=== PATIENT | male | born 1950 | race Caucasian/White ===

== ENCOUNTER → 2017-12-12 13:14 | Outpatient (CLI) | payer MEDICARE, SELFPAY ==
[2017-12-12 16:21] LABS: Absolute Lymphocyte Count 1.41 X10^3/ul (0.83-4.51); Absolute Neutrophil Count 5.1 X10^3/uL (2.0-7.7); Basophil# 0.02 X10^3/uL; Basophil% 0.3 % (0-1); Eosinophil# 0.16 X10^3/uL; Eosinophils% 2.2 % (0-5); Hematocrit 41.3 % (40-54); Lymphocyte # 1.41 X10^3/ul (4.0); Lymphocyte % 19.7 % (19-41); Mean Corp Hgb Conc 31.5 g/gl (32-36); Mean Corpuscular Volume 95.4 fL (80-94); Mean Platelet Vol. 11.8 fl (6.2-12.0); Monocyte# 0.49 X10^3/uL; Monocyte% 6.9 % (0-10); Neutrophil # 5.05 X10^3/uL (2.7-7.7); Neutrophil % 70.6 % (47-70); Platelet Count 224 K/mm3 (150-450); RBC Distribution Width CV 14.3 % (11.6-14.6); RBC Distribution Width SD 48.9 fl (35.1-43.9); Red Blood Count 4.33 M/mm3 (4.6-6.2); White Blood Count 7.2 K/mm3 (4.4-11.0)
[2017-12-12 16:23] LABS: POSITIVE COUNT NO; POSITIVE DIFFERENTIAL NO; POSITIVE MORPHOLOGY NO
[2017-12-12 16:41] LABS: Vitamin D,25 Hydroxy 24.6 ng/mL (29.95-100.01)
[2017-12-12 16:49] LABS: ALB/GLOB Ratio 1.2 RATIO (0.9-2.4); AST(SGOT) 18 U/L (15-37); Alanine Aminotransfer ALT/SGPT 30 U/L (16-61); Albumin, Serum 3.6 g/dL (3.2-5.0); Alkaline Phosphatase 84 U/L (45-117); Anion Gap 7 (5-15); BUN 16 mg/dL (7-18); BUN/Creat Ratio 16.1 RATIO (10-20); Calcium,Total 8.1 mg/dL (8.5-10.1); Chloride 107 mmol/L (98-107); Creatinine, Serum 0.99 mg/dL (0.70-1.30); EST Glomerular Filtration Rate 79 mL/min (>60); Est Glom Filt Rate - Afr Amer 96 mL/min (>60); Globulin 3.1 g/dL (2.2-4.2); Glucose 87 mg/dL (74-106); Potassium 3.8 mmol/L (3.5-5.1); Protein, Total 6.7 g/dL (6.4-8.2); Sodium Level 143 mmol/L (136-145); Thyroid Stim Hormone (TSH) 0.34 uIU/mL (0.358-3.74)
[2017-12-13 11:37] LABS: T3 Uptake 29 % (33-40); T4 Free Direct 0.94 ng/dL (0.76-1.46)
== END ==
PROVIDERS: Family Provider Family Medicine Geriatric Medicine; PCP Family Medicine Geriatric Medicine; Visit Provider Family Medicine Geriatric Medicine
DX: E87.6 Hypokalemia (principal); E03.9 Hypothyroidism, unspecified; E55.9 Vitamin D deficiency, unspecified; R53.83 Other fatigue
CPT/HCPCS: 36415; 80053; 82306; 84439; 84443; 84479; 85025

== ENCOUNTER → 2017-12-19 09:41 | Outpatient (CLI) | payer MEDICARE, SELFPAY ==
--- NOTE | 2017-12-19 09:46 | AAVD_ITS ---
Reason For Study: AORTOILIAC OCCLUSIVE DISEASE Aorta Measurements Aorta Doppler Measurements Proximal aorta measures1.5 X 1.7cm. in cross- Peak systolic flow velocities within the proximal sectional axis. aorta measure 74 cm/sec. Proximal aorta measures1.7cm. in longitudinal Peak systolic flow velocities within the mid axis. aorta measure 94 cm/sec. Mid aorta measures1.3 X 1.4cm. in cross-sectionalPeak systolic flow velocities within the distal axis. aorta measure 82 cm/sec. Mid aorta measures1.4cm. in longitudinal axis. Distal aorta measures1.4 X 1.3cm. in cross- sectional axis. Distal aorta measures1.4cm. in longitudinal axis. Left Iliac Artery Left iliac artery measures 1.0 cm. in the longitudinal axis. Left iliac artery measures 1.1 X 1.2 cm. in the cross-sectional axis. Peak systolic velocity in the left iliac artery measures 223 cm/sec. Right Iliac Artery Right iliac artery measures 1.1 cm. in the longitudinal axis. Peak systolic velocity in the right iliac artery measures 106 cm/sec. Right iliac artery measures 1.0 X 1.1 cm. in the cross-sectional axis. Procedure Aorta IVC Iliac vasculature or bypass grafts [id number]. Exam performed in department. Interpretation Summary 1. No aortoiliac aneurysm or occlussive disease. Ordering Physician: Sterling Gardner Referring Physician: PEPE PARKER CHI Performed By: Yakelin Recinos, BAILEY, RVT
== END ==
PROVIDERS: Family Provider Family Medicine Geriatric Medicine; PCP Family Medicine Geriatric Medicine; Visit Provider Surgery Vascular Surgery
DX: I74.09 Other arterial embolism and thrombosis of abdominal aorta (principal); I70.213 Atherosclerosis of native arteries of extremities with intermittent claudication, bilateral legs; M79.605 Pain in left leg; E78.00 Pure hypercholesterolemia, unspecified; Z87.19 Personal history of other diseases of the digestive system
CPT/HCPCS: 93978

== ENCOUNTER → 2018-01-16 12:55 | Outpatient (CLI) | payer MEDICARE, SELFPAY ==
--- NOTE | 2018-01-23 11:37 | LEAS ---
Arterial Study - Arterial Study Arterial Study: Date of scan 01/16/[address] Gardner next History: Hypertension hyperlipidemia history of smoking with mild claudication symptoms Interpretation: Right lower extremity normal pulsatile flow from the thigh down to the calf ankle out through the digits duplex at the ankle shows triphasic flow both vessels with an IVAN of 1.3 to the posterior tibial 1.2 for the dorsalis pedis next Left lower extremity with again normal pulsatile flow that appears from the thigh down to the calf ankle out through the digits duplex shows again triphasic flow at the ankle of both vessels with an IVAN 1.15 the posterior tibial 1.19 at the dorsalis pedis. Impression: 1. Bilateral lower extremities with no evidence significant arterial occlusive disease at rest with triphasic flow and an IVAN 1.32 and 1.19
== END ==
PROVIDERS: Family Provider Family Medicine Geriatric Medicine; PCP Family Medicine Geriatric Medicine; Visit Provider Surgery Vascular Surgery
DX: I74.09 Other arterial embolism and thrombosis of abdominal aorta (principal); I70.213 Atherosclerosis of native arteries of extremities with intermittent claudication, bilateral legs; M79.605 Pain in left leg; E78.00 Pure hypercholesterolemia, unspecified; Z87.19 Personal history of other diseases of the digestive system
CPT/HCPCS: 93923

== ENCOUNTER → 2018-03-11 17:48 | Outpatient (CLI) | payer MEDICARE, SELFPAY ==
--- NOTE | 2018-03-11 18:06 | RAD_ITS ---
STUDY: X-RAY CHEST REASON FOR EXAM: Male, 67 years old. Cough. Bronchitis. TECHNIQUE: PA and lateral views of the chest. COMPARISON: October 31, 2013. FINDINGS: The lungs are clear and expanded. There is no demonstrated pleural abnormality. Normal size heart. Normal mediastinum and jacinto. Normal visualized pulmonary arteries. There is mild atherosclerotic calcification of the aortic arch with tortuosity. There are diffuse degenerative changes of the visualized thoracic spine. Normal visualized ribs, clavicles, and shoulders. There is no demonstrated abnormality of the visualized soft tissue structures of the upper abdomen. RAD/Chest PA and Lateral IMPRESSION: No acute cardiopulmonary disease or interval change. Electronically Signed: Rigo Abbasi DO at 9:57 EDT Tel [phone], Service support ,
[2018-03-11 18:07] LABS: Absolute Lymphocyte Count 3.11 X10^3/ul (0.83-4.51); Absolute Neutrophil Count 9.6 X10^3/uL (2.0-7.7); Basophil# 0.02 X10^3/uL; Basophil% 0.1 % (0-1); Eosinophil# 0.06 X10^3/uL; Eosinophils% 0.4 % (0-5); Hematocrit 43.7 % (40-54); Hemoglobin 14.1 g/dl (13.0-16.5); Lymphocyte # 3.11 X10^3/ul (4.0); Lymphocyte % 22.2 % (19-41); Mean Corp Hgb Conc 32.3 g/gl (32-36); Mean Corpuscular Hgb 30.9 pg (27.0-32.0); Mean Corpuscular Volume 95.6 fL (80-94); Mean Platelet Vol. 10.7 fl (6.2-12.0); Monocyte% 7.9 % (0-10); Neutrophil # 9.57 X10^3/uL (2.7-7.7); Neutrophil % 68.3 % (47-70); POSITIVE COUNT NO; POSITIVE DIFFERENTIAL NO; POSITIVE MORPHOLOGY NO; Platelet Count 286 K/mm3 (150-450); RBC Distribution Width CV 13.5 % (11.6-14.6); RBC Distribution Width SD 46.8 fl (35.1-43.9); Red Blood Count 4.57 M/mm3 (4.6-6.2)
[2018-03-11 18:43] LABS: Anion Gap 6 (5-15); BUN 40 mg/dL (7-18); BUN/Creat Ratio 36.7 RATIO (10-20); Calcium,Total 8.7 mg/dL (8.5-10.1); Chloride 105 mmol/L (98-107); Creatinine, Serum 1.09 mg/dL (0.70-1.30); EST Glomerular Filtration Rate 71 mL/min (>60); Est Glom Filt Rate - Afr Amer 86 mL/min (>60); Glucose 103 mg/dL (74-106); Potassium 3.7 mmol/L (3.5-5.1); Sodium Level 139 mmol/L (136-145)
== END ==
PROVIDERS: Family Provider Family Medicine Geriatric Medicine; PCP Family Medicine Geriatric Medicine; Visit Provider Family Medicine Geriatric Medicine
DX: J40 Bronchitis, not specified as acute or chronic (principal); R53.83 Other fatigue; R68.83 Chills (without fever)
CPT/HCPCS: 36415; 71046; 80048; 85025; 87633

== ENCOUNTER 2018-05-14 07:00 | Outpatient (RCR) | payer MEDICARE, SELFPAY ==
--- NOTE | 2018-04-05 10:24 | HP.PTEVAL_ITS ---
Patient's Visit Information BREANNA HERRING is a 67 year old M referred to Physical Therapy by Oscar Soni with a diagnosis of BACK PAIN. Date of Evaluation: 04/05/18 Physical Therapist: Brad Rios, PT, - Visit Plan Frequency: 2x /Week Duration: 4 Weeks Plan: 1XWEEK AQUATIC PT FOR CERVICAL/UMBAR ROM ,SSTRENGTHENING,POSTURE. 1XWEEK FOR MANUAL THERAPY-STM,MODALITIES,POSTURAL EX'S - Subjective Subjective: This 67 y/o male presents to physical therapy with back pain . Patient has h/o cervcal fusion Jun and lumbar fusion and 8 surgery's and last surgery was a fusion lumbar 2014. Patient has been [facility] pain management with epidural injections and last procedure was nerve burning. Patient see Neurosurgeon DR Gardner said it will take. Patient had MRI . Patient has lumbar pain symmtrical lumbar with radicular symptoms left leg. Decsribed ache/sharp. Symptoms worse with walking /standing ,sitting,activity ,working . Location symptoms cervical and right am with parathesia . Symptoms worse with all activity sitting,working ,lifting ,turning cervical spine. C/O SMITH ,denies dizziness,nuasea/tinnutus. Coughing /sneezing -.Bowel/bladder good. Symtoms affect sleeping. Symptoms affects ADL'S/function and QOL. 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 SOCIAL: - Pain Bilateral Neck Pain Intensity (Out of 10): 6 Pain Intensity Range: 9 Bilateral Back Pain Intensity (Out of 10): 6 Pain Intensity Range: 9 Left Lower Extremity Pain Intensity (Out of 10): 7 Pain Intensity Range: 8 Comment: parathesia - Objective POSTURE:mild foward posture. NEURO: c/o parathesia right arm ,and left leg , light touch ,reflexes C5-6-7 1/3,L3-4,L4-5,L5-S1 1/3. PALAPTION: tender UT/ levator/scapular/paraspinals. AROM: BUE WFL. MMT: 4/5 except shoulder 4-/5. CERVICAL: flexion mod loss,lateral flexion mod/severe loss,extension mod/severe, rotation mod loss. LUMBAR ROM: flexion mod loss,side glides mod loss,extension mod/severe loss. MMT: quads/hams 4/5,hip flexion 4-/5,ankle 4/5. FLEXABILITY: hams min loss. SYMMTRIES: align - Special Tests C/S Radiculapathy - Left Upper limb tension test: Negative C/S Radiculapathy - Right Upper limb tension test: Negative L/S Slump test left side: Negative L/S Slump test right side: Negative L/S Left Straight Leg Raise: Negative L/S Right Straight Leg Raise: Negative - Goals Goal 1:: Innependant with Aquatic PT program Goal Time Frame: 4-6 Weeks Goal 2:: Patient improve posture for ADL'S to manage symptoms Goal Time Frame: 4-6 Weeks Goal 3:: Patient improve cervical lumbar ROM to improve function of recovery Goal Time Frame: 4-6 Weeks Goal 4:: Patient improve owestry score by 5 points to improve QOL. Goal Time Frame: 4-6 Weeks - Rehabilitation Potential Physical Therapy Diagnosis: This 67 y/o male has multiple complexity issues with h/o cervical fusion 2017 and multiple lumbar surgery's x8 to include lumbar fusion 2014 . Patient conts to have cervical pain with riadicular. Patient is with pain management and PT in past. Patient has impairments with decrease ROM ,pain impairs QOL Rehabilitation Potential: Good - Anticipated Interventions Patient/Client Instruction: Educate patient on: Condition, Plan of Care For the Purpose of:: To decrease pain, To increase ROM, To improve muscle performance and motor function, To increase tolerance to activity/condition/ position, To improve ability of physical actions for home/community/work/leisure , To improve health of tissue, To decrease soft tissue restriction, To increase flexibility/ROM, To improve ability to perform tasks related to life management Therapeutic Exercise to Include: Strength training, Body mechanics, Postural training, In an aquatic setting, Active ROM, Dynamic Lumbar Stabilization Comment: CERVICAL/LUMBAER For the Purpose of:: To decrease pain, To increase ROM, To improve nutrient delivery to tissue, To increase oxygenation perfusion, To improve muscle performance and motor function, To increase tolerance to activity/condition/ position, To improve ability of physical actions for home/community/work/leisure , To improve health of tissue, To decrease soft tissue restriction, To increase flexibility/ROM, To improve ability to perform tasks related to life management Manual Therapy Techniques to Include: Soft tissue mobilization For the Purpose of:: To decrease pain, To improve nutrient delivery to tissue, To increase oxygenation perfusion, To improve health of tissue, To decrease soft tissue restriction TENS: Yes IF ES: Yes Cryotherapy (ice pack, ice massage): Yes Thermo therapy (hot pack): Yes Ultrasound (thermal/non thermal): Yes For the Purpose of:: To decrease pain, To increase ROM, To improve nutrient delivery to tissue, To increase oxygenation perfusion, To improve health of tissue, To increase flexibility/ROM Thank you for the opportunity to evaluate your patient. For Medicare and Medicare HMO plans, please review the plan of care and approve it. It will need to be FAXED BACK to us at [phone] for Medicare purposes. Please let me know if there are questions or concerns regarding this plan of care. Physician Signature: Date:
[2018-05-01 12:35] LABS: Absolute Lymphocyte Count 1.59 X10^3/ul (0.83-4.51); Absolute Neutrophil Count 5.5 X10^3/uL (2.0-7.7); Basophil# 0.02 X10^3/uL; Basophil% 0.3 % (0-1); Eosinophil# 0.09 X10^3/uL; Eosinophils% 1.2 % (0-5); Hematocrit 41.6 % (40-54); Hemoglobin 13.1 g/dl (13.0-16.5); Lymphocyte # 1.59 X10^3/ul (4.0); Lymphocyte % 20.3 % (19-41); Mean Corp Hgb Conc 31.5 g/gl (32-36); Mean Corpuscular Hgb 31.2 pg (27.0-32.0); Mean Platelet Vol. 11.3 fl (6.2-12.0); Monocyte# 0.61 X10^3/uL; Monocyte% 7.8 % (0-10); Neutrophil # 5.46 X10^3/uL (2.7-7.7); Neutrophil % 69.8 % (47-70); Platelet Count 207 K/mm3 (150-450); RBC Distribution Width CV 13.5 % (11.6-14.6); RBC Distribution Width SD 48.7 fl (35.1-43.9); White Blood Count 7.8 K/mm3 (4.4-11.0)
[2018-05-01 12:41] LABS: POSITIVE COUNT NO; POSITIVE DIFFERENTIAL NO; POSITIVE MORPHOLOGY NO
[2018-05-01 12:50] LABS: Vitamin D,25 Hydroxy 27.5 ng/mL (29.95-100.01)
[2018-05-01 12:56] LABS: ALB/GLOB Ratio 1.1 RATIO (0.9-2.4); AST(SGOT) 20 U/L (15-37); Alanine Aminotransfer ALT/SGPT 33 U/L (16-61); Albumin, Serum 3.6 g/dL (3.2-5.0); Alkaline Phosphatase 69 U/L (45-117); Anion Gap 9 (5-15); BUN 17 mg/dL (7-18); BUN/Creat Ratio 21.6 RATIO (10-20); Calcium,Total 8.5 mg/dL (8.5-10.1); Chloride 110 mmol/L (98-107); Creatinine, Serum 0.79 mg/dL (0.70-1.30); EST Glomerular Filtration Rate 104 mL/min (>60); Est Glom Filt Rate - Afr Amer 126 mL/min (>60); Globulin 3.2 g/dL (2.2-4.2); Glucose 87 mg/dL (74-106); PSA,Total - Annual Screen 0.52 ng/mL (0.00-4.00); Potassium 4.1 mmol/L (3.5-5.1); Protein, Total 6.8 g/dL (6.4-8.2); Sodium Level 145 mmol/L (136-145); Thyroid Stim Hormone (TSH) 1.57 uIU/mL (0.358-3.74)
[2018-05-02 14:40] LABS: Hep C Antibodies 0.1 s/co ratio (0.0-0.9)
--- NOTE | 2018-08-19 11:52 | HP.PTDCNRP_ITS ---
HP - Discharge Summary (1) - Patient Information BREANNA HERRING was seen in my office for initial evaluation on 04/05/18. The following Plan of Care was established for this patient: Initial Frequency: 2x /Week Initial Duration: 4 Weeks - Anticipated Interventions Patient/Client Instruction: Educate patient on: Condition, Plan of Care For the Purpose of:: To decrease pain, To increase ROM, To improve muscle perf ormance and motor function, To increase tolerance to activity/condition/position, To improve ability of physical actions for home/community/work/leisure, To improve health of tissue, To decrease soft tissue restriction, To increase flexibility/ROM, To improve ability to perform tasks related to life management Therapeutic Exercise to Include: Strength training, Body mechanics, Postural training, In an aquatic setting, Active ROM, Dynamic Lumbar Stabilization For the Purpose of:: To decrease pain, To increase ROM, To improve nutrient delivery to tissue, To increase oxygenation perfusion, To improve muscle performance and motor function, To increase tolerance to activity/condition/position, To improve ability of physical actions for home/co mmunity/work/leisure, To improve health of tissue, To decrease soft tissue restriction, To increase flexibility/ROM, To improve ability to perform tasks related to life management Manual Therapy Techniques to Include: Soft tissue mobilization For the Purpose of:: To decrease pain, To improve nutrient delivery to tissue, To increase oxygenation perfusion, To improve health of tissue, To decrease soft tissue restriction TENS: Yes IF ES: Yes Cryotherapy (ice pack, ice massage): Yes Thermo therapy (hot pack): Yes Ultrasound (thermal/non thermal): Yes For the Purpose of:: To decrease pain, To increase ROM, To improve nutrient delivery to tissue, To increase oxygenation perfusion, To improve health of tissue, To increase flexibility/ROM This patient was last seen in our office . Pertinent comments regarding their Physical therapy will appear below: At this point I will be discontinuing this patient from physical therapy. I would be happy to see this patient again in the future if found appropriate by the physician. Thank you! Brad Rios, PT,
--- NOTE | 2018-08-19 11:53 | HP.PTDCSUM_ITS ---
HP - PT D/C Summary It has been my pleasure to treat BREANNA HERRING under orders from Oscar Soni, for the diagnosis of BACK PAIN for a total of 9 visit(s). Discharge Date: Please see the following information for a summary of their discharge status. - Subjective Subjective: Seen DR crenshaw plan to do MRI. Pain continues to be bad at end of day. - Pain Bilateral Neck Pain Intensity (Out of 10): 5 Bilateral Back Pain Intensity (Out of 10): 5 Left Lower Extremity Pain Intensity (Out of 10): 5 - Objective Objective/Function: POSTURE: rounded shoulders head foward. PALPATION: tender UT/LEVATOR. NEURO: ocassionally c/o parathesia left UE. MMT: BUE 4/5 EXCEPT shoulders 4-/5. CERVICAL ROM: flexion min loss,extension mod loss ,lateral fl exion mod loss - Goals Goal 1:: Innependant with Aquatic PT program Goal 2:: Patient improve posture for ADL'S to manage symptoms Goal 3:: Patient improve cervical lumbar ROM to improve function of recovery Goal 4:: Patient improve owestry score by 5 points to improve QOL. - Plan Plan: MRI - D/C Information If there are questions or concerns regarding this patient's physical therapy, please feel free to call me at [phone]. Thank you for the referral of this patient. Sincerely, Brad Rios, PT,
== END 2018-05-14 19:00 | disposition home or self-care (01) ==
LOC: PT 07:00
PROVIDERS: Family Provider Family Medicine Geriatric Medicine; PCP Family Medicine Geriatric Medicine; Visit Provider Anesthesiology Pain Medicine
DX: M54.5 Low back pain (principal); E55.9 Vitamin D deficiency, unspecified; R53.83 Other fatigue; Z12.5 Encounter for screening for malignant neoplasm of prostate; Z13.89 Encounter for screening for other disorder
CPT/HCPCS: 36415; 80053; 82306; 84153; 84443; 85025; 86803; 97035; 97113; 97140; 97162; G0103

== ENCOUNTER → 2018-10-30 14:07 | Outpatient (CLI) | payer MEDICARE, SELFPAY ==
[2018-10-30 16:26] LABS: Absolute Lymphocyte Count 1.85 X10^3/ul (0.83-4.51); Absolute Neutrophil Count 4.1 X10^3/uL (2.0-7.7); Basophil# 0.03 X10^3/uL; Basophil% 0.4 % (0-1); Eosinophil# 0.27 X10^3/uL; Eosinophils% 3.9 % (0-5); Hematocrit 43.1 % (40-54); Hemoglobin 13.5 g/dl (13.0-16.5); Lymphocyte # 1.85 X10^3/ul (4.0); Lymphocyte % 26.7 % (19-41); Mean Corp Hgb Conc 31.3 g/gl (32-36); Mean Corpuscular Hgb 31.1 pg (27.0-32.0); Mean Corpuscular Volume 99.3 fL (80-94); Mean Platelet Vol. 12.2 fl (6.2-12.0); Monocyte# 0.63 X10^3/uL; Monocyte% 9.1 % (0-10); Neutrophil # 4.12 X10^3/uL (2.7-7.7); Neutrophil % 59.5 % (47-70); Platelet Count 250 K/mm3 (150-450); RBC Distribution Width CV 13.6 % (11.6-14.6); RBC Distribution Width SD 49.2 fl (35.1-43.9); Red Blood Count 4.34 M/mm3 (4.6-6.2); White Blood Count 6.9 K/mm3 (4.4-11.0)
[2018-10-30 16:36] LABS: POSITIVE COUNT NO; POSITIVE DIFFERENTIAL NO; POSITIVE MORPHOLOGY NO
[2018-10-30 16:49] LABS: ALB/GLOB Ratio 1.1 RATIO (0.9-2.4); AST(SGOT) 19 U/L (15-37); Alanine Aminotransfer ALT/SGPT 30 U/L (16-61); Albumin, Serum 3.6 g/dL (3.2-5.0); Alkaline Phosphatase 101 U/L (45-117); Anion Gap 7 (5-15); BUN 18 mg/dL (7-18); BUN/Creat Ratio 23.1 RATIO (10-20); Calcium,Total 8.5 mg/dL (8.5-10.1); Chloride 108 mmol/L (98-107); Creatinine, Serum 0.78 mg/dL (0.70-1.30); EST Glomerular Filtration Rate 105 mL/min (>60); Est Glom Filt Rate - Afr Amer 127 mL/min (>60); Globulin 3.2 g/dL (2.2-4.2); Glucose 97 mg/dL (74-106); Protein, Total 6.8 g/dL (6.4-8.2); Sodium Level 141 mmol/L (136-145)
== END ==
PROVIDERS: Family Provider Family Medicine Geriatric Medicine; PCP Family Medicine Geriatric Medicine; Visit Provider Family Medicine Geriatric Medicine
DX: I10 Essential (primary) hypertension (principal); E55.9 Vitamin D deficiency, unspecified
CPT/HCPCS: 36415; 80053; 82306; 84443; 85025

== ENCOUNTER → 2019-01-01 06:39 | Outpatient (CLI) | payer BC, MEDICARE, SELFPAY ==
[2018-11-11 10:23] VITALS: BMI 24.3
--- NOTE | 2019-01-01 11:28 | NEURO ---
NCS and/or EMG Patient Report Ordering Doctor: Sj Pinto Chi DATE OF SERVICE: 01/01/19 This is a right upper extremity EMG and a bilateral upper extremity nerve conduction study performed on this 68-year-old male with a history of numbness and tingling in the right hand in his first 3 digits and on the left hand and his last 2 digits. Symptoms been present for approximately 3 months. He has a prior neck fusion there is no history of diabetes. Bilateral upper extremity sensory and motor nerve conduction studies performed. The median motor and sensory distal latencies are prolonged more so on the right side with reduction in amplitude but stable conduction velocities. The ulnar motor and sensory and radial sensory responses are intact. The median F wave latencies are prolonged bilaterally worse on the right side. Right upper extremity needle electromyography is performed. Muscles evaluated included the first dorsal interosseous, abductor pollicis brevis, brachioradialis, biceps, triceps and deltoid muscles. All muscles with the exception of the abductor pollicis brevis muscle demonstrated normal insertional activity with pathologic's planning cutaneous activity being absent. Motor unit potential recruitment pattern and amplitude was normal however in the abductor pollicis brevis there was 1-2+ fibrillation potentials large motor units consistent with carpal tunnel syndrome. All other C8 muscles are normal. 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
== END ==
PROVIDERS: Family Provider Family Medicine Geriatric Medicine; PCP Family Medicine Geriatric Medicine; Referring Provider Family Medicine Geriatric Medicine; Visit Provider Family Medicine Geriatric Medicine
DX: R20.2 Paresthesia of skin (principal)
CPT/HCPCS: 95886; 95911

== ENCOUNTER 2019-02-08 10:38 | Emergency (ER) | payer BC, MEDICARE, SELFPAY ==
[2018-11-11 10:23] VITALS: BMI 24.3
[2019-02-08 10:39] VITALS: BP 157/85; PULSE 65; RESP 17; TEMP 36.6; O2SAT 96; BMI 24.5
--- NOTE | 2019-02-08 11:01 | CT_ITS ---
STUDY: CT ABDOMEN AND PELVIS WITHOUT CONTRAST REASON FOR EXAM: Male, 68 years old. Right flank pain for 5 days RADIATION DOSAGE (If Supplied By Facility): CTDIvol = ( 7.54 ) mGy, DLP = ( 361.45 ) mGycm TECHNIQUE: Transaxial images were obtained from the dome of the diaphragm to the symphysis pubis without oral contrast, and without intravenous contrast. Sagittal and coronal images were reconstructed. Individualized dose optimization techniques were used for this CT. COMPARISON: May 14, 2017 FINDINGS: The visualized lung bases are unremarkable. Coronary artery stents are noted. Normal liver. Normal gallbladder and extrahepatic biliary system. Normal spleen. Normal pancreas. Fat containing mass of the right adrenal gland measuring 3.4 cm is compatible with a myelolipoma, stable since prior study. The left adrenal gland is normal. Mild right hydronephrosis with a 3 mm calculus in the proximal right ureter on image 86. Normal left kidney. Normal visualized stomach. Normal small intestine. There are multiple colonic diverticula consistent with diverticulosis. There is non-visualization of the appendix. Normal abdominal aorta. Normal inferior vena cava. Normal retroperitoneum. Normal urinary bladder. There is a small umbilical hernia containing fat. Similar operative changes of the lumbar spine. Calcifications of the bilateral buttock subcutaneous fat compatible with injection sites/granulomas. CT/Abdomen/Pelvis without Cont IMPRESSION: 1. 3 mm proximal right ureter calculus with mild hydronephrosis. 2. Additional stable chronic changes, as above. Electronically Signed: Paul Crump MD at 12:10 EDT , Service support ,
--- NOTE | 2019-02-08 11:03 | ED.DCSUM_ITS ---
- ER Visit Summary Date of Service: 02/08/19 Chief Complaint: Flank pain History of Present Illness: The patient is a 68 M with right sided flank pain. Symptoms started 5 days ago. Patient has had kidney stones in the past and he is trying to pass it on his own. He has noted hematuria and just had some clots in his urine. Physical Examination: Afebrile and vital signs unremarkable. Patient appears uncomfortable but not toxic or in distress. Right CVA tender to palpation. Abdomen soft. Skin appears normal. Test Results: We will check labs, urine, CT. Emergency Department Course and Treatment: Patient received fluids, morphine, Zofran while awaiting results. Patient has a 3 mm right proximal ureter with mild hydronephrosis. CBC unremarkable. Chloride 109, glucose 107, BUN 19. Urinalysis shows 25 leukocyte esterase, greater than 100 red blood cells. Patient does not meet criteria for admission. Furthermore he is not having intractable symptoms and would like to try outpatient therapy. He is on o xycodone and will continue this at home. Will prescribe Flomax. Strain all urine. I advised him that his condition could worsen. If he is unable to tolerate p.o. or has any other complications, he should return over the weekend. Otherwise, follow-up with Dr. Fang. Treatment Plan: As above Disposition: Discharge Impression: 1. Right ureteral colic This note was generated with [employer] dictation software. It may contain incorrect words, spelling, and punctuation that were not noted in review of the chart prior to signing ED Disposition - Plan for ED Patient: Referrals: Sj Pinto Chi, MD [Primary Care Provider] -
[2019-02-08 11:19] LABS: Bacteria 0 SEEN /hpf (None Seen); Mucous, Urine 0 SEEN /hpf (<or=2+); Squamous Epithelial Cells - UA 0 SEEN /hpf (0-5); White Blood Cells 0 SEEN /hpf (0-5)
[2019-02-08] MEDS: 0.9% Normal Saline 1,000 ML 1000 ML IV (11:20)
[2019-02-08] MEDS: Morphine 4 MG/ML Syringe IV (11:20)
[2019-02-08] MEDS: Ondansetron 4 MG/2 ML Vial IV (11:20)
[2019-02-08 11:22] LABS: Absolute Lymphocyte Count 1.66 X10^3/ul (0.83-4.51); Absolute Neutrophil Count 4.7 X10^3/uL (2.0-7.7); Basophil# 0.03 X10^3/uL; Basophil% 0.4 % (0-1); Eosinophil# 0.24 X10^3/uL; Eosinophils% 3.3 % (0-5); Hematocrit 42.6 % (40-54); Hemoglobin 13.8 g/dl (13.0-16.5); Lymphocyte # 1.66 X10^3/ul (4.0); Lymphocyte % 22.6 % (19-41); Mean Corp Hgb Conc 32.4 g/gl (32-36); Mean Corpuscular Hgb 30.9 pg (27.0-32.0); Mean Corpuscular Volume 95.3 fL (80-94); Mean Platelet Vol. 10.6 fl (6.2-12.0); Monocyte# 0.69 X10^3/uL; Monocyte% 9.4 % (0-10); Neutrophil # 4.71 X10^3/uL (2.7-7.7); Platelet Count 201 K/mm3 (150-450); RBC Distribution Width CV 13.2 % (11.6-14.6); RBC Distribution Width SD 45.8 fl (35.1-43.9); Red Blood Count 4.47 M/mm3 (4.6-6.2); White Blood Count 7.4 K/mm3 (4.4-11.0)
[2019-02-08 11:24] LABS: POSITIVE COUNT NO; POSITIVE DIFFERENTIAL NO; POSITIVE MORPHOLOGY NO
[2019-02-08 11:26] LABS: Color, Urine Amber (Yellow); Glucose, Dipstick Normal (Normal); Ketone-Dipstick Negative (Negative); Leukocyte Esterase-Dipstick 25 /ul (Negative); Nitrite-Dipstick Negative (Negative); Occult Blood-Urine 250 /ul (Negative); Protein-Dipstick 30 mg/dl (Negative); Specific Gravity, Urine 1.005 (1.002-1.030); Urine Bilirubin Dipstick Negative (Negative); Urine Clarity Cloudy (Clear); Urine Urobilinogen Normal (Normal)
[2019-02-08 11:32] LABS: Red Blood Cells-Urine > 100 SEEN /hpf (0-5)
[2019-02-08 11:34] LABS: Anion Gap 5 (5-15); BUN 19 mg/dL (7-18); Calcium,Total 8.7 mg/dL (8.5-10.1); Chloride 109 mmol/L (98-107); Creatinine, Serum 0.83 mg/dL (0.70-1.30); EST Glomerular Filtration Rate 98 mL/min (>60); Est Glom Filt Rate - Afr Amer 118 mL/min (>60); Estimated Creatinine Clearance 74.73 ml/min; Glucose 107 mg/dL (74-106); Potassium 4.1 mmol/L (3.5-5.1); Sodium Level 142 mmol/L (136-145)
--- NOTE | 2019-02-08 12:22 | ED.DEP ---
ED Disposition - Plan for ED Patient: Instructions: ED Stone Renal W Colic Prescriptions: Tamsulosin HCl [Flomax] 0.4 mg PO DAILY #7 cap Referrals: Jules Fang MD [STAFF PHYSICIAN] -
[2019-02-08 12:40] VITALS: BP 140/80; RESP 17
--- NOTE | 2019-02-08 12:40 | ED.RN ---
IV DC'ED, CATHETER INTACT, SMALL GAUZE DRESSING PLACED. DISCHARGE INSTRUCTIONS GIVEN TO AND REVIEWED WITH PATIENT, PATIENT DENIES QUESTIONS OR CONCERNS AND VOICES UNDERSTANDING OF DISCHARGE INSTRUCTIONS. PT AMBULATES OUT OF ROOM WITHOUT DIFFICULTY.
== END 2019-02-08 12:41 | disposition home or self-care (01) ==
LOC: ED 11:05
PROVIDERS: Emergency Provider Emergency Medicine; Family Provider Family Medicine Geriatric Medicine; PCP Family Medicine Geriatric Medicine
DX: N13.2 Hydronephrosis with renal and ureteral calculous obstruction (principal); Z87.442 Personal history of urinary calculi; Z87.891 Personal history of nicotine dependence
CPT/HCPCS: 74176; 80048; 81001; 85025; 96361; 96374; 96375; 99283; J7030; A4216; J2405

== ENCOUNTER 2019-02-11 12:45 | Emergency (ER) | payer BC, MEDICARE, SELFPAY ==
[2019-02-11 12:49] VITALS: BP 125/70; PULSE 80; RESP 17; TEMP 36.6; O2SAT 96; BMI 26.6
[2019-02-11 13:09] LABS: Absolute Lymphocyte Count 2.28 X10^3/ul (0.83-4.51); Absolute Neutrophil Count 4.3 X10^3/uL (2.0-7.7); Basophil# 0.02 X10^3/uL; Basophil% 0.3 % (0-1); Eosinophil# 0.25 X10^3/uL; Eosinophils% 3.3 % (0-5); Hematocrit 41.2 % (40-54); Hemoglobin 13.3 g/dl (13.0-16.5); Lymphocyte # 2.28 X10^3/ul (4.0); Lymphocyte % 30.5 % (19-41); Mean Corp Hgb Conc 32.3 g/gl (32-36); Mean Corpuscular Hgb 30.6 pg (27.0-32.0); Mean Corpuscular Volume 94.9 fL (80-94); Mean Platelet Vol. 10.9 fl (6.2-12.0); Monocyte# 0.58 X10^3/uL; Monocyte% 7.8 % (0-10); Neutrophil # 4.32 X10^3/uL (2.7-7.7); Neutrophil % 57.7 % (47-70); Platelet Count 212 K/mm3 (150-450); RBC Distribution Width CV 13.3 % (11.6-14.6); RBC Distribution Width SD 46.3 fl (35.1-43.9); Red Blood Count 4.34 M/mm3 (4.6-6.2); White Blood Count 7.5 K/mm3 (4.4-11.0)
[2019-02-11 13:10] LABS: POSITIVE COUNT NO; POSITIVE DIFFERENTIAL NO; POSITIVE MORPHOLOGY NO
[2019-02-11 13:16] LABS: BUN 17 mg/dL (7-18); Creatinine, Serum 0.84 mg/dL (0.70-1.30); Estimated Creatinine Clearance 71.18 ml/min; Glucose 95 mg/dL (74-106)
[2019-02-11 13:17] LABS: Anion Gap 5 (5-15); BUN/Creat Ratio 20.3 RATIO (10-20); Calcium,Total 8.5 mg/dL (8.5-10.1); Chloride 111 mmol/L (98-107); EST Glomerular Filtration Rate 96 mL/min (>60); Est Glom Filt Rate - Afr Amer 117 mL/min (>60); Potassium 3.8 mmol/L (3.5-5.1); Sodium Level 144 mmol/L (136-145)
[2019-02-11] MEDS: Ondansetron 4 MG/2 ML Vial IV (15:34)
[2019-02-11] MEDS: morphine 8 MG/ML Syringe 6 MG IV (15:34)
--- NOTE | 2019-02-11 16:35 | RAD_ITS ---
STUDY: X-RAY - ABDOMEN/PELVIS REASON FOR EXAM: Male, 68 years old. Right-sided flank pain. TECHNIQUE: Single AP view of the abdomen / pelvis. COMPARISON: None. FINDINGS: Normal visualized lung bases. There is an unremarkable bowel gas pattern with air seen to the level of the rectosigmoid. There is no demonstrated free abdominal air. The visualized liver, spleen and kidneys are grossly normal in size and morphology. Normal soft tissue structures. Postfusion and laminectomy changes of the lower lumbosacral spine are present. RAD/Abdomen Single View IMPRESSION: No acute pathology of the abdomen or pelvis. Electronically Signed: Omer Chapa MD at 16:57 EDT , Service support ,
[2019-02-11 16:46] VITALS: BP 151/68; PULSE 71; RESP 16; O2SAT 96
--- NOTE | 2019-02-11 17:41 | ED.VISSUMM ---
- ER Visit Summary Date of Service: 02/11/19 Chief Complaint: Flank pain History of Present Illness: The patient is a 68 M history of chronic back pain and kidney stones. Diagnosed several days ago with a right ureteral 3 mm stone with mild hydro-. Patient's on pain medication at home. Said the pain is not improving. He has been straining his urine has not seen a stone pass. He has had a prior 8 mm stone removed by urology in the past. He denies any fever. He has had some mild nausea and vomiting. Physical Examination: Older male no acute distress vital signs are stable afebrile. HEENT exam unremarkable neck nontender lungs clear to auscultation bilaterally. Heart regular rhythm no murmur. Abdomen is soft and nontender normal bowel sounds no peritoneal signs. Remedies moves all 4. Calves nontender without edema neurologically is awake and alert with no focal motor deficits. Test Results: White count 7. Hemoglobin 13. Electrolytes unremarkable gap of 5 creatinine 0.8. I reviewed his tests from the other day and his most recent CAT scan which did show a proximal third 3 mm stone with mild hydro-. Emergency Department Course and Treatment: Patient was treated with IV morphine and Zofran here. On repeat exam he is feeling better at 1727. I spoke to Dr. Davonte Fang patient's her neurologist who will see him on in the office. Repeat exam patient is feeling well and is comfortable being discharged. He has pain medications at home. Treatment Plan: Follow-up with urologist. Disposition: Discharge Impression: Right flank pain with a history of a 3 mm hallway to proximal ureter stone History of kidney stones History of chronic pain syndrome due to back pain. This note was generated with [employer] dictation software. It may contain incorrect words, spelling, and punctuation that were not noted in review of the chart prior to signing ED Disposition - Plan for ED Patient: Referrals: Sj Pinto Chi, MD [Primary Care Provider] -
--- NOTE | 2019-02-11 17:44 | ED.DEP ---
ED Disposition - Plan for ED Patient: Disposition: Home or Assisted Living Instructions: ED Stone Renal W Colic Referrals: Jules Fang MD [STAFF PHYSICIAN] - As soon as possible Additional Instructions: Call and follow-up with Dr. Fang in the next 1 to 2 days.
[2019-02-11 18:14] VITALS: BP 145/92; PULSE 65; RESP 17; O2SAT 98
== END 2019-02-11 18:16 | disposition home or self-care (01) ==
PROVIDERS: Emergency Provider Emergency Medicine; Family Provider Family Medicine Geriatric Medicine; PCP Family Medicine Geriatric Medicine
DX: N13.2 Hydronephrosis with renal and ureteral calculous obstruction (principal); G89.4 Chronic pain syndrome; Z87.442 Personal history of urinary calculi
CPT/HCPCS: 74018; 80048; 85025; 96374; 96375; 99282; A4216; J2405

== ENCOUNTER 2019-03-22 20:45 | Emergency (ER) | payer BC, MEDICARE, SELFPAY ==
[2019-03-22 20:46] VITALS: BP 142/72; PULSE 71; RESP 15; TEMP 36.6; BMI 26.6
--- NOTE | 2019-03-22 20:59 | ED.DCSUM_ITS ---
History of Present Illness Chief Complaint: Upper Extremity Injury Informant: Patient Onset: Yesterday Context: Gradual Onset Current Severity: Moderate Maximum Severity: Moderate Narrative: Patient presents to the emergency department with reaction to his staying. He states that he was stung by hornets yesterday. He had one staying on the dorsum of his right hand over the finger. He had another one on the inside of his right ankle. States over the past 24 hours, he has had increasing redness and swelling of the hand. Is been taking Benadryl with little improvement. He describes it as itching. He denies any fevers or chills. He has no history of immunosuppression. He denies any other trauma. He is never had allergic reaction like this before. Prior similar symptoms: No Recent Illness/Hospitalization: No Past Medical History - Allergies and Home Meds Allergies/Adverse Reactions: Allergies codeine Allergy (Verified 03/22/19 20:49) AFFECTED BREATHING AFFECTED BREATHING prednisone Adverse Reaction (Verified 03/22/19 20:49) Other Unable to sleep is awake for days Primary Care Physician: Sj Pinto Chi, MD [Primary Care Provider] - Prior records reviewed: Yes Surgical History: no surgical history Lives: With Family Smoking Status: Former smoker Alcohol: None - Family History Maternal Family History: Reports: No pertinent history Review of Systems General: Denies: Chills, Fever, Sweats Eyes: Denies: Visual changes - bilaterally, Diplopia ENT: Denies: Rhinorrhea, Sore throat Cardiovascular: Denies: Chest pain, Palpitations Respiratory: Denies: Dyspnea, Cough, Dyspnea on exertion Gastrointestinal: Denies: Abdominal pain, Nausea, Vomiting, Diarrhea, Melena, Hematochezia Genitourinary: Denies: Dysuria, Hematuria, Frequency Musculoskeletal: Denies: Back pain, Extremity Pain Skin: Reports: Rash. Denies: Wounds Neurological: Denies: Headache, Weakness, Numbness Physical Exam Vital Signs/Narrative: Vital Signs Temp Pulse Resp BP 03/22/19 20:46 97.9 F 71 15 142/72 H Inital Vital Signs reviewed: Yes General: Well nourished, Well developed, No Acute Distress Head: Normocephalic, Atraumatic Eyes: Perrl, EOMI ENT: Moist mucous membranes, No rhinorrhea Neck: Supple, Nontender Cardiovascular: Regular rate, Regular rhythm, No murmurs Respiratory: No distress, CTA bilaterally, Chest nontender Abdomen: Soft, Nontender, Nondistended, Normal bowel sounds Back: Nontender, Normal Inspection Extremities: Nontender, Edema - Mild edema of the dorsum of the right hand. No cellulitis. No warmth. No streaking. Skin: Normal color, Rash Neurological: Alert, Oriented x3, Cranial nerves II-XII grossly intact, Normal Strength, Normal Sensation Psychological: Normal affect, Normal Mood Diagnostic/Tx/Re-eval - Medical Decision Making The patient has a local reaction to hornet sting. This does appear to be entirely allergic, but given the erythema of the skin I am going to cover him with Keflex for the patient does have a significant response to prednisone and does not want to take this. I will cover him with Decadron. He will continue ice and Benadryl. I did education counselor him to have this reevaluated in the next 48 hours return if the symptoms are worsening. He is comfortable with this plan of care. ED Disposition - Plan for ED Patient: Diagnosis: Toxic reaction to hornets, wasps and bees Instructions: ALLERGIC REACTION, Insect (Local) Prescriptions: Cephalexin [Keflex] 500 mg PO Q8 #21 cap Prescription Printed Referrals: Sj Pinto Chi, MD [Primary Care Provider] -
[2019-03-22] MEDS: dexAMETHasone 4 MG Tablet 12 MG PO (21:17)
[2019-03-22] MEDS: Cephalexin 250 MG Capsule 500 MG PO (21:17)
== END 2019-03-22 21:21 | disposition home or self-care (01) ==
LOC: ED 21:11
PROVIDERS: Emergency Provider Emergency Medicine; Family Provider Family Medicine Geriatric Medicine; PCP Family Medicine Geriatric Medicine
DX: T63.451A Toxic effect of venom of hornets, accidental (unintentional), initial encounter (principal); Y92.9 Unspecified place or not applicable; Z87.891 Personal history of nicotine dependence
CPT/HCPCS: 99283

== ENCOUNTER → 2019-05-29 08:40 | Outpatient (CLI) | payer BC, MEDICARE, SELFPAY ==
--- NOTE | 2019-05-29 08:43 | AAVD_ITS ---
Reason For Study: Atherosclerosis Aorta Measurements Aorta Doppler Measurements Proximal aorta measures1.57 x 1.59cm. in cross- Peak systolic flow velocities within the proximal sectional axis. aorta measure 76.9 cm/sec. Proximal aorta measures1.59cm. in longitudinal Peak systolic flow velocities within the mid aorta axis. measure 80.6 cm/sec. Mid aorta measures1.65 x 1.67cm. in cross- Peak systolic flow velocities within the distal sectional axis. aorta measure 84.2 cm/sec. Mid aorta measures1.65cm. in longitudinal axis. Distal aorta measures1.27 x 1.39cm. in cross- sectional axis. Distal aorta measures1.34cm. in longitudinal axis. Left Iliac Artery Left iliac artery measures 0.69 x 0.67 cm. in the cross-sectional axis. Left iliac artery measures 0.66 cm. in the longitudinal axis. Peak systolic velocity in the left iliac artery measures 170 cm/sec. Right Iliac Artery Right iliac artery measures 0.80 x 0.79 cm. in the cross-sectional axis. Right iliac artery measures 0.77 cm. in the longitudinal axis. Peak systolic velocity in the right iliac artery measures 114.4 cm/sec. Procedure Aorta IVC Iliac vasculature or bypass grafts 29127. Exam performed in department. Interpretation Summary 1. No aortoiliac aneurysm or occlusive disease. Ordering Physician: Sterling Gardner Referring Physician: Sj Pinto Chi Performed By: Shelly Hathaway RVT
--- NOTE | 2019-05-29 08:43 | CDU_ITS ---
Reason For Study: Atherosclerosis Rt. Velocities/BP Lt. Velocities/BP Prox CCA 94.3/18.6 cm/sec. Prox CCA 108.3/17 cm/sec. Mid CCA 99.5/16 cm/sec. Mid CCA 110.1/20.6 cm/sec. Dist CCA 76/17.3 cm/sec. Dist CCA 84.6/9.7 cm/sec. Prox ICA 67.3/17.9 cm/sec. Prox ICA 69.1/16.3 cm/sec. Mid ICA 68.4/21.2 cm/sec. Mid ICA 74.1/23.7 cm/sec. Dist ICA 78.6/21.7 cm/sec. Dist ICA 106/31.1 cm/sec. Rt. ICA/CCA = 0.83. Lt. ICA/CCA = 1.0. Prox ECA 64/8 cm/sec. Prox ECA 97.4/11.5 cm/sec. Rt. Vert. 47.6/14.6 cm/sec. Lt. Vert. 47.1/10.3 cm/sec. Right Extracranial There is homogeneous, smooth atherosclerotic plaque noted in the right common carotid artery. There is heterogeneous, irregular atherosclerotic plaque noted in the right internal carotid artery. The atherosclerotic plaque causes acoustic shadowing. There is no significant atherosclerotic plaque noted in the right external carotid artery. Antegrade flow is noted in the right vertebral artery. There is heterogeneous, irregular atherosclerotic plaque noted in the right bulb. Left Extracranial There is homogeneous, smooth atherosclerotic plaque noted in the left common carotid artery. There is homogeneous, irregular atherosclerotic plaque noted in the left internal carotid artery. There is heterogeneous, irregular atherosclerotic plaque noted in the left external carotid artery. Antegrade flow is noted in the left vertebral artery. Procedure Carotid Duplex [id number]. Exam performed in department. Interpretation Summary Mild (<50%) stenosis right extracranial internal carotid. Mild (<50%) stenosis left extracranial internal carotid. Flow within the vertebral arteries is antegrade bilaterally. Ordering Physician: Sterling Gardner Referring Physician: Sj Pinto Chi Performed By: Shelly Hathaway RVT
--- NOTE | 2019-05-29 08:43 | ART_ITS ---
Reason For Study: Atheroslcerosis Procedure A bilateral lower extremity continuous wave Doppler with analog waveform analysis and ankle brachial indexes. Left Segmental Pressures Left brachial= 171mmHg. Left posterior tibial artery = 192mmHg. Left dorsalis pedis artery = 186mmHg. The left dorsalis pedis waveforms are triphasic. The left posterior tibial artery waveforms are triphasic. Right Segmental Pressures Right brachial= 182mmHg. Right posterior tibial artery = 204mmHg. Right dorsalis pedis artery = 200mmHg. The right dorsalis pedis waveforms are triphasic. The right posterior tibial artery waveforms are triphasic. Indices The right ankle brachial index by the dorsalis pedis is 1.10. The right ankle brachial index by the posterior tibial artery is 1.12. The left ankle brachial index by the dorsalis pedis is 1.02. The left ankle brachial index by the posterior tibial artery is 1.05. Interpretation Summary 1. No evidence occlussive disease at rest with triphasic flow and IVAN 1.12 and 1.05. Ordering Physician: Sterling Gardner Referring Physician: Sj Pinto Chi Performed By: Shelly Hathaway RVT
== END ==
PROVIDERS: Family Provider Family Medicine Geriatric Medicine; PCP Family Medicine Geriatric Medicine; Referring Provider Surgery Vascular Surgery; Visit Provider Surgery Vascular Surgery
DX: I74.09 Other arterial embolism and thrombosis of abdominal aorta (principal); I70.213 Atherosclerosis of native arteries of extremities with intermittent claudication, bilateral legs; M79.605 Pain in left leg; E78.00 Pure hypercholesterolemia, unspecified; Z87.19 Personal history of other diseases of the digestive system
CPT/HCPCS: 93880; 93922; 93978

== ENCOUNTER 2019-06-14 17:42 | Emergency (ER) | payer BC, MEDICARE, SELFPAY ==
[2019-06-14 17:43] VITALS: BP 165/82; PULSE 64; RESP 15; TEMP 36.6; O2SAT 98; BMI 24.0
--- NOTE | 2019-06-14 18:20 | ED.DCSUM_ITS ---
- ER Visit Summary Date of Service: 06/14/19 Chief Complaint: Fall with head neck injury History of Present Illness: The patient is a 68 M with your prior cervical fusion back surgery. Patient states he was taking something outside to throw away last night it was last evening. He tripped fell off his porch landing awkwardly on his head and primarily the back of his neck and upper back. Complaining of some pain. No numbness or weakness. He is unsure if he was knocked out. He is on no blood thinners. He said prior to the fall he felt fine. He has had some mild headaches. Had some nausea. No vomiting. No fever. Physical Examination: Older male no acute distress. Sitting upright in bed. Vital signs are stable afebrile. H EENT exam pupils are unreactive light. There is no signs of trauma to his face or scalp. No hematoma, tenderness or lacerations. No facial trauma. Dentition intact. C-spine is got diffuse tenderness primarily over the soft tissue of his upper back and neck. There is an old posterior surgical incision which is well-healed. Trachea midline. Lungs clear to auscultation bilaterally. Heart regular rhythm no murmur. Chest were nontender. Abdomen soft nontender no signs of trauma. No peritoneal signs. Pelvic girdle intact. Upper and lower extremities have normal range of motion. 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 No deformities nontender. Neurologically is awake and alert with no focal motor or sensory deficits. He knows day, month and president. He is acting appropriately. Test Results: CAT scan of his brain without contrast shows acute abnormality read by the radiologist and reviewed by me. CT scan of his C-spine without contrast shows no acute abnormalities read by the radiologist. Reviewed by me. Emergency Department Course and Treatment: Repeat exam patient is doing well at 2013 p.m. Treatment Plan: Tylenol for headache. Return if worse. Follow-up with not improving. Disposition: Discharge Impression: Fall with closed head injury Cervical strain This note was generated with [employer] dictation software. It may contain incorrect words, spelling, and punctuation that were not noted in review of the chart prior to signing ED Disposition - Plan for ED Patient: Referrals: Sj Pinto Chi, MD [Primary Care Provider] -
--- NOTE | 2019-06-14 18:53 | CT_ITS ---
STUDY: CT BRAIN WITHOUT CONTRAST REASON FOR EXAM: Male, 68 years old. Trauma RADIATION DOSAGE (If Supplied By Facility): CTDIvol = ( 44.99 ) mGy, DLP = ( 779.24 ) mGycm TECHNIQUE: Transaxial CT imaging of the brain was performed without administration of intravenous contrast material. Individualized dose optimization techniques were used for this CT. COMPARISON: Report of a previous study of 04/15/2012 FINDINGS: Normal soft tissue structures. Normal calvarium. Normal size ventricles and extra-axial spaces for the patient's age. There are areas of decreased attenuation within the white matter tracts of the supratentorial brain, consistent with microvascular disease changes. Normal basal ganglia and thalami. Normal brainstem. Normal cerebellum. There is no intracranial hemorrhage. There are no findings of an acute ischemic infarction. Normal visualized paranasal sinuses. CT/Brain/Head without Contrast IMPRESSION: Chronic involutional changes of the brain. There is no intracranial hemorrhage or calvarial fracture. Electronically Signed: Ashish Connolly MD at 19:31 EDT , Service support ,
--- NOTE | 2019-06-14 18:53 | CT_ITS ---
STUDY: CT CERVICAL SPINE WITHOUT CONTRAST REASON FOR EXAM: Male, 68 years old. Trauma RADIATION DOSAGE (If Supplied By Facility): CTDIvol = ( 23.31 ) mGy, DLP = ( 472.83 ) mGycm TECHNIQUE: High resolution transaxial imaging was performed without contrast material. Sagittal and coronal images were reconstructed. Individualized dose optimization techniques were used for this CT. COMPARISON: None FINDINGS: The study is technically limited secondary to extensive scanning artifact caused by orthopedic hardware. Normal craniovertebral junction. There are degenerative changes of the anterior atlantoaxial articulation. Normal odontoid process. Normal cervical lordosis. There are posterior spinal fusion changes with rods and interpeduncular screws from C3 to T1. Status post laminectomy changes are noted from C3 to C7. C2-3: There are bilateral degenerative facet changes. There is mild foraminal narrowing on the left. There is no central canal stenosis. C3-4: There is mild disc space narrowing. There is moderately severe bilateral foraminal narrowing. There are degenerative facet changes. C4-5: There is severe disc space narrowing. There is moderately severe bilateral foraminal narrowing. There are bilateral degenerative facet changes. C5-6: There is severe disc space narrowing. There is moderately severe bilateral foraminal narrowing. There are bilateral degenerative facet changes. C6-7: There is severe disc space narrowing. There are bilateral degenerative facet changes. There is moderately severe bilateral foraminal narrowing. C7-T1: There is loss of the C7-T1 disc space. There are bilateral degenerative facet changes. There is severe bilateral foraminal narrowing. There is no central canal stenosis. Normal visualized soft tissue structures. CT/Spine Cervical without Contras IMPRESSION: Limited study secondary to excessive scanning artifact. Posterior cervical fusion changes with rods and interpeduncular screws from C3 to T1. Multilevel cervical degenerative changes as detailed above. There is no evidence of fracture or subluxation. Electronically Signed: Ashish Connolly MD at 19:35 EDT , Service support ,
[2019-06-14] MEDS: Acetaminophen 500 MG Tablet 1000 MG PO (19:16)
--- NOTE | 2019-06-14 20:15 | ED.DEP ---
ED Disposition - Plan for ED Patient: Disposition: Home or Assisted Living Instructions: HEAD INJURY, No Wake-Up (Adult), Neck Sprain/Strain Referrals: Sj Pinto Chi, MD [Primary Care Provider] - 3-5 Days if not improving Additional Instructions: Hot shower and massage to your neck. Tylenol for pain. Follow-up if not improving. Return if worse.
[2019-06-14 20:30] VITALS: RESP 16
== END 2019-06-14 20:30 | disposition home or self-care (01) ==
PROVIDERS: Emergency Provider Emergency Medicine; Family Provider Family Medicine Geriatric Medicine; PCP Family Medicine Geriatric Medicine
DX: S09.90XA Unspecified injury of head, initial encounter (principal); S16.1XXA Strain of muscle, fascia and tendon at neck level, initial encounter; R11.0 Nausea; W01.0XXA Fall on same level from slipping, tripping and stumbling without subsequent striking against object, initial encounter; Y93.9 Activity, unspecified; Y92.9 Unspecified place or not applicable; Z98.1 Arthrodesis status
CPT/HCPCS: 70450; 72125; 99283

== ENCOUNTER → 2019-06-17 11:14 | Outpatient (CLI) | payer BC, MEDICARE, SELFPAY ==
[2019-06-14 17:43] VITALS: BMI 24.0
[2019-06-17 12:44] LABS: Absolute Lymphocyte Count 1.52 X10^3/uL (0.83-4.51); Absolute Neutrophil Count 4.8 X10^3/uL (2.0-7.7); Basophil# 0.04 X10^3/uL; Basophil% 0.5 % (0-1); Eosinophil# 0.29 X10^3/uL; Eosinophils% 3.9 % (0-5); Hematocrit 43.1 % (40-54); Hemoglobin 13.8 g/dL (13.0-16.5); Lymphocyte # 1.52 X10^3/ul (4.0); Lymphocyte % 20.5 % (19-41); Mean Corpuscular Volume 96.9 fL (80-94); Mean Platelet Vol. 11.3 fl (6.2-12.0); Monocyte# 0.69 X10^3/uL; Monocyte% 9.3 % (0-10); NRBC Flagged by Analyzer 0 % (0-5); Neutrophil # 4.83 X10^3/uL (2.7-7.7); Neutrophil % 65.3 % (47-70); Platelet Count 223 K/mm3 (150-450); RBC Distribution Width CV 12.7 % (11.6-14.6); RBC Distribution Width SD 45.2 fl (35.1-43.9); Red Blood Count 4.45 M/mm3 (4.6-6.2); White Blood Count 7.4 K/mm3 (4.4-11.0)
[2019-06-17 13:01] LABS: Vitamin D,25 Hydroxy 31.7 ng/mL (29.95-100.01)
[2019-06-17 13:29] LABS: ALB/GLOB Ratio 1.1 RATIO (0.9-2.4); AST(SGOT) 14 U/L (15-37); Alanine Aminotransfer ALT/SGPT 23 U/L (16-61); Albumin, Serum 3.6 g/dL (3.2-5.0); Alkaline Phosphatase 112 U/L (45-117); Anion Gap 6 (5-15); BUN 22 mg/dL (7-18); BUN/Creat Ratio 24.7 RATIO (10-20); Calcium,Total 8.5 mg/dL (8.5-10.1); Chloride 108 mmol/L (98-107); Creatinine, Serum 0.89 mg/dL (0.70-1.30); EST Glomerular Filtration Rate 90 mL/min (>60); Est Glom Filt Rate - Afr Amer 109 mL/min (>60); Globulin 3.2 g/dL (2.2-4.2); Glucose 124 mg/dL (74-106); PSA,Total - Annual Screen 0.54 ng/mL (0.00-4.00); Potassium 4.1 mmol/L (3.5-5.1); Protein, Total 6.8 g/dL (6.4-8.2); Sodium Level 141 mmol/L (136-145); Thyroid Stim Hormone (TSH) 0.64 uIU/mL (0.358-3.74)
== END ==
PROVIDERS: Family Provider Family Medicine Geriatric Medicine; PCP Family Medicine Geriatric Medicine; Visit Provider Family Medicine Geriatric Medicine
DX: E55.9 Vitamin D deficiency, unspecified (principal); I10 Essential (primary) hypertension; Z12.5 Encounter for screening for malignant neoplasm of prostate
CPT/HCPCS: 36415; 80053; 82306; 84153; 84443; 85025; G0103

== ENCOUNTER 2019-10-29 09:51 | Emergency (ER) | payer BC, MEDICARE, SELFPAY ==
[2019-10-29 09:51] VITALS: BP 158/84; PULSE 104; RESP 16; TEMP 36.2; O2SAT 99; BMI 25.0
--- NOTE | 2019-10-29 10:32 | RAD_ITS ---
STUDY: X-RAY - LEFT KNEE REASON FOR EXAM: Male, 69 years old. Fell yesterday; pain and swelling laterally; hx of 2 knee replacements TECHNIQUE: 4 view(s) of the knee. COMPARISON: Comparison is made with prior examination dated February 09, 2015. FINDINGS: The patient is status post total knee replacement. There is good alignment. No fracture is seen. There is evidence of a moderate size joint effusion and soft tissue swelling. Vascular calcification. RAD/Knee 4 or More Views IMPRESSION: Status post total knee replacement. Soft tissue swelling and moderate size joint effusion. Electronically Signed: Papa Hammer, at 10:55 EST , Service support ,
--- NOTE | 2019-10-29 11:03 | ED.VISSUMM ---
- ER Visit Summary Date of Service: 10/29/19 Chief Complaint: Left knee pain History of Present Illness: The patient is a [address] 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 He reports that yesterday at [facility] he had a syncopal episode after standing from a chair. He reports that he had an extensive evaluation of this including a CT, blood work, chest x-ray. However, he noted that his left knee began to hurt shortly thereafter. They did not x-ray this. He does not want the syncopal episode addressed again today. Patient denies any blow to the head or loss of consciousness. He is not on anticoagulants. He denies any neck, back, shoulder, wrist, hip pain. Patient reports he has left knee pain that is 10 out of 10 [address] he [address] and 5-10 at rest. It is unrelieved by his morphine and Percocet that he has for his chronic neck pain. He does have a history of a knee replacement. This was done a long time ago. He does not know who did it. Physical Examination: Vitals: Stable. Afebrile. Neck: No vertebral tenderness. Full ROM without difficulty. Cleared by NEXUS criteria. Back: No vertebral tenderness. General: A&O x 3. NAD. Cardiovascular exam: Regular rate and rhythm, no murmur, rub or gallop. Respiratory exam: Chest nontender. No crepitus. Clear to auscultation bilaterally. No wheezes or stridor. Abdominal exam: Soft, nontender, nondistended, normal bowel sounds. No pain in RUQ or LUQ specifically. No peritoneal signs. Extremity: Moderate diffuse tenderness palpation over his left knee with soft tissue swelling medially. Decreased range of motion secondary to pain. I do not appreciate any ligamentous instability. 2+ dorsalis pedis pulse and normal sensation distally. Test Results: Clinical Impression(s) from Imaging Studies Knee X-Ray 10/29/19 10:32 IMPRESSION: Status post total knee replacement. Soft tissue swelling and moderate size joint effusion. Electronically Signed: Papa Hammer, at 10:55 EST , Service support , Emergency Department Course and Treatment: Patient drove here. He refused Tylenol or ibuprofen for pain. Treatment Plan: Patient already has prescriptions for morphine and Percocet. I do not think that adding more opiate-based medications as indicated. He will be discharged with crutches and a knee immobilizer. Instructed to follow-up with Dr. Mcdonald, whom he is seen previously for his hip, as soon as possible. Return to the emergency department for any worsening symptoms. Disposition: To home in improved and stable condition. Impression: 1. Fall. 2. Left knee pain, acute. This note was generated with [employer] software. It may contain incorrect words, spelling, and punctuation that were not noted in review of the chart prior to signing ED Disposition - Plan for ED Patient: Instructions: KNEE PAIN, Uncertain Cause Referrals: Toni Mcdonald MD [STAFF PHYSICIAN] - 1 Week if not improving
[2019-10-29 16:59] LABS: Pathologist Comment May follow
[2019-10-29 17:34] LABS: Synovial Fld Mononuclear WBC % 27.2 %; Synovial Fld Polynuclear WBC # 3.583 10^3/uL; Synovial Fld Polynuclear WBC % 72.8 %
[2019-10-29 19:31] LABS: Lymph 30 %; Monocyte /Synovial Fluid 3 %; Neutrophil 65 % (0-25); Other Cell /Synovial Fluid 2 %
[2019-10-29 19:32] LABS: AUTO B FLUID DILUENT BKGD CT WBC <0.1 RBC <0.01 (W<.1,R<.01); Appearance /Synovial Fluid Turbid (CLEAR); Color / Synovial Fluid Bloody (Pale Yellow); Source / Synovial Fluid LEFT KNEE; Source- Body Fluid SYNOVIAL
[2019-10-29 19:33] LABS: Body Fluid QC Type(s) BF4Q,BF5Q
[2019-10-30 14:23] LABS: Pathologist Review Reviewed
== END 2019-10-29 11:49 | disposition home or self-care (01) ==
LOC: ED 10:53
PROVIDERS: Emergency Provider Emergency Medicine; PCP Family Medicine Geriatric Medicine
DX: M25.562 Pain in left knee (principal); Z96.652 Presence of left artificial knee joint; W19.XXXA Unspecified fall, initial encounter; Y93.9 Activity, unspecified; Y92.9 Unspecified place or not applicable; M54.2 Cervicalgia; G89.29 Other chronic pain
CPT/HCPCS: 73564; 87070; 87075; 87205; 89050; 89051; 89060; 99284

== ENCOUNTER → 2019-10-30 10:13 | Outpatient (CLI) | payer BC, MEDICARE, SELFPAY ==
[2019-10-29 09:51] VITALS: BMI 25.0
[2019-10-30 11:09] LABS: Absolute Lymphocyte Count 1.47 X10^3/uL (0.83-4.51); Absolute Neutrophil Count 5.7 X10^3/uL (2.0-7.7); Basophil# 0.03 X10^3/uL; Basophil% 0.4 % (0-1); Eosinophil# 0.29 X10^3/uL; Eosinophils% 3.6 % (0-5); Hemoglobin 12.9 g/dL (13.0-16.5); Lymphocyte # 1.47 X10^3/ul (4.0); Lymphocyte % 18.1 % (19-41); Mean Corp Hgb Conc 31.5 g/dL (32-36); Mean Corpuscular Hgb 30.2 pg (27.0-32.0); Mean Platelet Vol. 11.2 fl (6.2-12.0); Monocyte# 0.59 X10^3/uL; Monocyte% 7.3 % (0-10); NRBC Flagged by Analyzer 0 % (0-5); Neutrophil # 5.69 X10^3/uL (2.7-7.7); Neutrophil % 70.2 % (47-70); Platelet Count 212 K/mm3 (150-450); RBC Distribution Width CV 13.8 % (11.6-14.6); RBC Distribution Width SD 48.9 fl (35.1-43.9); Red Blood Count 4.27 M/mm3 (4.6-6.2); White Blood Count 8.1 K/mm3 (4.4-11.0)
[2019-10-30 11:18] LABS: Erythrocyte Sedimentation Rate 10 mm/hr (0-20)
== END ==
PROVIDERS: PCP Family Medicine Geriatric Medicine; Referring Provider Orthopaedic Surgery; Visit Provider Orthopaedic Surgery
DX: M25.462 Effusion, left knee (principal)
CPT/HCPCS: 36415; 85025; 85652; 86140

== ENCOUNTER → 2019-11-13 | Outpatient (CLI) | payer BC, MEDICARE, SELFPAY ==
[2019-10-29 09:51] VITALS: BMI 25.0
[2019-11-13 13:31] LABS: RBC /Synovial Fluid 0.114 10^6/uL (0); Synovial Fld Mononuclear WBC % 48.7 %; Synovial Fld Polynuclear WBC # 0.426 10^3/uL; Synovial Fld Polynuclear WBC % 51.3 %
[2019-11-13 13:32] LABS: AUTO B FLUID DILUENT BKGD CT WBC <0.1 RBC <0.01 (W<.1,R<.01)
[2019-11-13 13:33] LABS: Synovial Fld Mononuclear WBC # 0.404 10^3/ul
[2019-11-13 13:37] LABS: Appearance /Synovial Fluid CLOUDY (CLEAR); Color / Synovial Fluid Red (Pale Yellow)
[2019-11-13 13:41] LABS: Source / Synovial Fluid LEFT KNEE
[2019-11-13 14:51] LABS: Lymph 24 %; Monocyte /Synovial Fluid 74 %; Neutrophil 2 % (0-25)
[2019-11-13 14:52] LABS: Body Fluid QC Type(s) BF1Q
[2019-11-14 10:34] LABS: Pathologist Comment Reviewed
== END | disposition home or self-care (01) ==
PROVIDERS: PCP Family Medicine Geriatric Medicine; Referring Provider Specialist; Visit Provider Specialist
DX: M25.462 Effusion, left knee (principal); Z96.652 Presence of left artificial knee joint
CPT/HCPCS: 87015; 87070; 87075; 87101; 87116; 87205; 87206; 89050; 89051

== ENCOUNTER → 2019-11-21 14:19 | Outpatient (CLI) | payer BC, MEDICARE, SELFPAY ==
[2019-10-29 09:51] VITALS: BMI 25.0
[2019-11-21 16:46] LABS: BUN 21 mg/dL (7-18); Creatinine, Serum 0.73 mg/dL (0.70-1.30); EST Glomerular Filtration Rate 113 mL/min (>60); Est Glom Filt Rate - Afr Amer 136 mL/min (>60)
== END ==
PROVIDERS: PCP Family Medicine Geriatric Medicine
DX: G95.9 Disease of spinal cord, unspecified (principal); R26.81 Unsteadiness on feet
CPT/HCPCS: 36415; 82565; 84520

== ENCOUNTER → 2019-12-03 16:20 | Outpatient (CLI) | payer BC, MEDICARE, SELFPAY ==
--- NOTE | 2019-12-03 16:26 | CT_ITS ---
STUDY: CT CERVICAL SPINE WITHOUT CONTRAST REASON FOR EXAM: Male, 69 years old. CERVICAL myelopathy and pain. Prior cervical fusion RADIATION DOSAGE (If Supplied By Facility): CTDIvol = ( 21.11 ) mGy, DLP = ( 433.49 ) mGycm TECHNIQUE: High resolution transaxial imaging was performed without contrast material. Sagittal and coronal images were reconstructed. Individualized dose optimization techniques were used for this CT. COMPARISON: June 14, 2019 FINDINGS: The examination is limited secondary to artifact secondary to orthopedic hardware.Normal craniovertebral junction. There are degenerative changes of the anterior atlantoaxial articulation. Normal odontoid process. Normal cervical lordosis. There are posterior fusion changes from C3 to T1 with multilevel pedicle screws posterior spinal rods. There is evidence of prior laminectomies from C3 to C7. There is multilevel facet hypertrophy. C2-3: There is facet hypertrophy associated with narrowing of the left intervertebral neuroforamina. C3-4: There is a posterior disc osteophyte associated with bilateral narrowing of the intervertebral neuroforamina. C4-5: There is a posterior disc osteophyte and facet hypertrophy associated with bilateral narrowing of the intervertebral neuroforamina. C5-6: There is a posterior disc osteophyte and facet hypertrophy associated with bilateral narrowing of the intervertebral neuroforamina. C6-7: There is a anterior spondylolisthesis of C6 on C7 by 2.9 mm. There is a posterior disc osteophyte and facet hypertrophy associated with bilateral narrowing of the intervertebral neuroforamina. C7-T1: There is a posterior disc osteophyte associated with bilateral narrowing of the intervertebral neuroforamina. There are vascular calcifications. CT/Spine Cervical without Contras IMPRESSION: Multilevel degenerative changes, as described above. Multilevel posterior cervical fusion. Electronically Signed: Sharee García MD at 17:09 EDT Tel , Service support ,
--- NOTE | 2019-12-03 16:26 | MRI_ITS ---
STUDY: MRI CERVICAL SPINE WITH AND WITHOUT CONTRAST REASON FOR EXAM: Male, 69 years old. myelopathy -- neck and rt arm pain x 1 year, prev surgery 2016 TECHNIQUE: Standardized fat and water weighted pulse sequences were obtained in the sagittal and axial following administration of IV doteram 15ml. COMPARISON: June 06, 2017 FINDINGS: Normal foramen magnum and brainstem-cervical cord junction. Normal craniovertebral junction. Normal anterior atlantoaxial articulation. Normal odontoid process. Decreased cervical lordosis. Normal vertebral bodies and posterior osseous elements. C2-3: Normal endplates. Normal disc height, signal and tiny central disc protrusion.. Normal central canal and intervertebral neural foramina. C3-4: Status post bilateral laminectomy and posterior fusion. No focal disc protrusion.. Normal central canal. Mild bilateral neural foraminal encroachment secondary to bony hypertrophy.. C4-5: Status post bilateral laminectomy and posterior fusion.. Tiny central osteophyte protrusion without significant spinal stenosis. Moderate left neuroforaminal stenosis and mild narrowing on the right secondary to bony hypertrophy C5-6: Status post bilateral laminectomy and posterior fusion. Tiny central osteophyte protrusion. Normal central canal. Normal bilateral intervertebral neural foramina. C6-7: Status post bilateral laminectomy and posterior fusion.. Normal central canal and intervertebral neural foramina. C7-T1: Status post bilateral laminectomy and posterior fusion.. Normal central canal. Mild bilateral neural foraminal encroachment secondary to bony hypertrophy T1-2: Narrowed disc space with desiccation of the disc and moderate bulging of the disc. Mild narrowing the central canal. Moderate to severe bilateral neuroforaminal stenosis. Normal cervical cord. No abnormal enhancement following contrast demonstration Normal visualized soft tissue structures. MRI/Spine Cervical W/WO Contrast IMPRESSION: Postop changes status post lateral laminectomy posterior fusion spanning C3-4 through C7-T1 Tiny central disc protrusion at C2-3 without significant spinal stenosis. Mild multilevel neuroforaminal stenosis secondary to bony hypertrophy No focal cord lesions or enhancing lesions following contrast demonstration Electronically Signed: Jonathan Verde MD at 18:21 EDT , Service support ,
== END ==
PROVIDERS: PCP Family Medicine Geriatric Medicine
DX: G95.9 Disease of spinal cord, unspecified (principal); R26.81 Unsteadiness on feet
CPT/HCPCS: 72125; 72156; A9575

== ENCOUNTER → 2020-01-09 | Outpatient (CLI) | payer BC, MEDICARE, SELFPAY | END | disposition home or self-care (01) | LOC: LABSPEC 15:18 | PROVIDERS: PCP Family Medicine Geriatric Medicine; Visit Provider Family Medicine Geriatric Medicine | DX: R50.9 Fever, unspecified (principal) | CPT/HCPCS: 87633; 87635; G2023; U0004 ==

== ENCOUNTER → 2020-03-10 13:21 | Outpatient (CLI) | payer BC, MEDICARE, SELFPAY ==
[2020-03-10 14:06] LABS: Amphetamine Urine VISTA NEGATIVE (<1000 ng/mL); Barbiturate Urine VISTA NEGATIVE (< 200 ng/mL); Benzodiazepine Urine VISTA NEGATIVE (< 200 ng/mL); Cocaine Urine VISTA NEGATIVE (< 300 ng/mL); Ecstacy Urine VISTA NEGATIVE (< 500 ng/mL); Methadone Urine VISTA NEGATIVE (< 300 ng/mL); PCP Urine VISTA NEGATIVE (< 25 ng/mL); THC Urine VISTA NEGATIVE (< 50 ng/mL); Vista UDS pH Range 6
== END ==
PROVIDERS: PCP Family Medicine Geriatric Medicine; Referring Provider Anesthesiology Pain Medicine; Visit Provider Anesthesiology Pain Medicine
DX: F11.20 Opioid dependence, uncomplicated (principal)
CPT/HCPCS: 80307

== ENCOUNTER 2020-10-22 10:24 | Day surgery (SDC) | payer OTHER, MEDICARE, SELFPAY ==
[2020-10-22] VITALS (10 sets, daily range): BP systolic 134–180; BP diastolic 71–101; PULSE 57–76; RESP 14–18; TEMP 36.7–39.2; O2SAT 96–100; BMI 23.6
[2020-10-22] MEDS: Lactated Ringers 1,000 ML 100 ML IV ×2 (11:00→15:17)
[2020-10-22] MEDS: 0.9% Normal Saline (Pres. free 10 ML Vial (12:59)
[2020-10-22] MEDS: Lidocaine 0.5% (50 ml) 50 ML Vial (13:00)
[2020-10-22] MEDS: Bupivacaine 0.25%-Epi/Pf 1:200,000 30 ML OPERA.SITE (13:00)
== END 2020-10-22 16:31 | disposition home or self-care (01) ==
LOC: SDC 10:25 → AC 10:25
PROVIDERS: PCP Family Medicine Geriatric Medicine; Referring Provider Anesthesiology Pain Medicine; Visit Provider Anesthesiology Pain Medicine
PROC: (CPT 62350; principal; 2020-10-22 11:40)
DX: M96.1 Postlaminectomy syndrome, not elsewhere classified (principal); G89.4 Chronic pain syndrome; M50.30 Other cervical disc degeneration, unspecified cervical region; M47.892 Other spondylosis, cervical region; Z20.828 Contact with and (suspected) exposure to other viral communicable diseases; K21.9 Gastro-esophageal reflux disease without esophagitis; F32.9 Major depressive disorder, single episode, unspecified; Z79.899 Other long term (current) drug therapy; Z87.891 Personal history of nicotine dependence
CPT/HCPCS: 62350; 62362; 76000; 87426; C9803; J7120; J2274; J3490

== ENCOUNTER → 2020-11-03 14:05 | Outpatient (CLI) | payer OTHER, MEDICARE, SELFPAY ==
[2020-10-22 10:41] VITALS: BMI 23.6
[2020-11-03 17:57] LABS: Absolute Lymphocyte Count 1.57 X10^3/uL (0.83-4.51); Basophil# 0.03 X10^3/uL; Basophil% 0.5 % (0-1); Eosinophil# 0.39 X10^3/uL; Eosinophils% 5.9 % (0-5); Hematocrit 42.4 % (40-54); Hemoglobin 12.8 g/dL (13.0-16.5); Lymphocyte # 1.57 X10^3/ul (4.0); Lymphocyte % 23.6 % (19-41); Mean Corp Hgb Conc 30.2 g/dL (32-36); Mean Corpuscular Volume 99.5 fL (80-94); Mean Platelet Vol. 12.2 fl (6.2-12.0); Monocyte# 0.58 X10^3/uL; Monocyte% 8.7 % (0-10); NRBC Flagged by Analyzer 0 % (0-5); Neutrophil # 4.04 X10^3/uL (2.7-7.7); Neutrophil % 60.8 % (47-70); Platelet Count 218 K/mm3 (150-450); RBC Distribution Width SD 47.8 fl (35.1-43.9); Red Blood Count 4.26 M/mm3 (4.6-6.2); White Blood Count 6.6 K/mm3 (4.4-11.0)
[2020-11-03 18:10] LABS: Vitamin D,25 Hydroxy 24.5 ng/mL
[2020-11-03 18:16] LABS: AST(SGOT) 21 U/L (15-37); Alanine Aminotransfer ALT/SGPT 26 U/L (16-61); Albumin, Serum 3.4 g/dL (3.2-5.0); Alkaline Phosphatase 121 U/L (45-117); Anion Gap 6 (5-15); BUN 18 mg/dL (7-18); BUN/Creat Ratio 23.5 RATIO (10-20); Calcium,Total 8.4 mg/dL (8.5-10.1); Chloride 106 mmol/L (98-107); Creatinine, Serum 0.77 mg/dL (0.70-1.30); EST Glomerular Filtration Rate 106 mL/min (>60); Est Glom Filt Rate - Afr Amer 128 mL/min (>60); Globulin 3.5 g/dL (2.2-4.2); Glucose 91 mg/dL (74-106); Potassium 3.8 mmol/L (3.5-5.1); Protein, Total 6.9 g/dL (6.4-8.2); Sodium Level 139 mmol/L (136-145)
== END ==
PROVIDERS: PCP Family Medicine Geriatric Medicine; Visit Provider Family Medicine Geriatric Medicine
DX: I10 Essential (primary) hypertension (principal); E55.9 Vitamin D deficiency, unspecified; N39.0 Urinary tract infection, site not specified
CPT/HCPCS: 36415; 80053; 82306; 84443; 85025; 87086

== ENCOUNTER → 2021-05-04 13:22 | Outpatient (CLI) | payer OTHER, MEDICARE, SELFPAY ==
[2021-05-04 17:16] LABS: Absolute Neutrophil Count 4.1 X10^3/uL (2.0-7.7); Basophil# 0.03 X10^3/uL; Basophil% 0.4 % (0-1); Eosinophils% 5.8 % (0-5); Hematocrit 38.9 % (40-54); Hemoglobin 12.2 g/dL (13.0-16.5); Lymphocyte % 24.7 % (19-41); Mean Corp Hgb Conc 31.4 g/dL (32-36); Mean Corpuscular Hgb 30.7 pg (27.0-32.0); Mean Platelet Vol. 11.7 fl (6.2-12.0); Monocyte# 0.59 X10^3/uL; Monocyte% 8.6 % (0-10); NRBC Flagged by Analyzer 0 % (0-5); Neutrophil # 4.13 X10^3/uL (2.7-7.7); Neutrophil % 60.2 % (47-70); Platelet Count 228 K/mm3 (150-450); RBC Distribution Width CV 13.3 % (11.6-14.6); RBC Distribution Width SD 48.3 fl (35.1-43.9); Red Blood Count 3.97 M/mm3 (4.6-6.2); White Blood Count 6.9 K/mm3 (4.4-11.0)
[2021-05-04 17:28] LABS: ALB/GLOB Ratio 1.2 RATIO (0.9-2.4); AST(SGOT) 21 U/L (15-37); Alanine Aminotransfer ALT/SGPT 29 U/L (16-61); Albumin, Serum 3.6 g/dL (3.2-5.0); Alkaline Phosphatase 113 U/L (45-117); Anion Gap 5 (5-15); BUN 19 mg/dL (7-18); BUN/Creat Ratio 25.9 RATIO (10-20); Calcium,Total 8.2 mg/dL (8.5-10.1); Chloride 107 mmol/L (98-107); Creatinine, Serum 0.74 mg/dL (0.70-1.30); EST Glomerular Filtration Rate 111 mL/min (>60); Est Glom Filt Rate - Afr Amer 135 mL/min (>60); Globulin 3.1 g/dL (2.2-4.2); Glucose 90 mg/dL (74-106); Potassium 4.2 mmol/L (3.5-5.1); Protein, Total 6.7 g/dL (6.4-8.2); Sodium Level 141 mmol/L (136-145); Thyroid Stim Hormone (TSH) 0.81 uIU/mL (0.358-3.74)
[2021-05-04 17:30] LABS: Vitamin D,25 Hydroxy 36.9 ng/mL
== END ==
PROVIDERS: PCP Family Medicine Geriatric Medicine; Visit Provider Family Medicine Geriatric Medicine
DX: I10 Essential (primary) hypertension (principal); E55.9 Vitamin D deficiency, unspecified
CPT/HCPCS: 36415; 80053; 82306; 84443; 85025

== ENCOUNTER → 2021-07-04 14:13 | Outpatient (CLI) | payer OTHER, MEDICARE, SELFPAY | PROVIDERS: PCP Family Medicine Geriatric Medicine; Referring Provider Family Medicine Geriatric Medicine; Visit Provider Family Medicine Geriatric Medicine | DX: R06.89 Other abnormalities of breathing (principal) | CPT/HCPCS: 87635; 87804; 87807; C9803; U0005; U0003 ==

== ENCOUNTER → 2021-07-19 08:42 | Outpatient (CLI) | payer OTHER, MEDICARE, SELFPAY ==
--- NOTE | 2021-07-19 08:45 | AAVD_ITS ---
Reason For Study: atherosclerosis, aortoiliac occlusive disease Aorta Measurements Aorta Doppler Measurements Proximal aorta measures1.41 x 1.44cm. in cross- Peak systolic flow velocities within the proximal sectional axis. aorta measure 95.3 cm/sec. Proximal aorta measures1.44cm. in longitudinal Peak systolic flow velocities within the mid aorta axis. measure 97.2 cm/sec. Mid aorta measures1.48 x 1.46cm. in cross- Peak systolic flow velocities within the distal sectional axis. aorta measure 106.3 cm/sec. Mid aorta measures1.41cm. in longitudinal axis. Distal aorta measures1.2 x 1.3cm. in cross- sectional axis. Distal aorta measures1.19cm. in longitudinal axis. Left Iliac Artery Left iliac artery measures .72 x .77 cm. in the cross-sectional axis. Left iliac artery measures .71 cm. in the longitudinal axis. Peak systolic velocity in the left iliac artery measures 293.4 cm/sec. Right Iliac Artery Right iliac artery measures .82 x .9 cm. in the cross-sectional axis. Right iliac artery measures .81 cm. in the longitudinal axis. Peak systolic velocity in the right iliac artery measures 169 cm/sec. Procedure Aorta IVC Iliac vasculature or bypass grafts 62036. The exam was diagnostic. Exam performed in department. VL/Abd Aortic/IVC Duplex scan Interpretation Summary Moderate stenosis in the left common iliac artery. Otherwise no evidence of ane urysm or stenosis visualized. Ordering Physician: Sterling Gardner Performed By: Gallo Guerra RVT
== END ==
PROVIDERS: PCP Family Medicine Geriatric Medicine; Referring Provider Surgery Vascular Surgery; Visit Provider Surgery Vascular Surgery
DX: I74.09 Other arterial embolism and thrombosis of abdominal aorta (principal); I70.213 Atherosclerosis of native arteries of extremities with intermittent claudication, bilateral legs
CPT/HCPCS: 93978

== ENCOUNTER → 2021-08-23 15:51 | Outpatient (CLI) | payer OTHER, MEDICARE, SELFPAY ==
[2021-08-08 14:25] LABS: BUN 20 mg/dL (7-18); Creatinine, Serum 0.68 mg/dL (0.70-1.30); EST Glomerular Filtration Rate 122 mL/min (>60); Est Glom Filt Rate - Afr Amer 148 mL/min (>60)
--- NOTE | 2021-08-23 15:53 | CT_ITS ---
STUDY: CTA OF THE ABDOMINAL AORTA AND BILATERAL LOWER EXTREMITIES REASON FOR EXAM: Male, 70 years old. ATHEROSCLEROSIS RADIATION DOSAGE (If Supplied By Facility): CTDIvol = ( 8.16 ) mGy, DLP = ( 1150.44 ) mGycm TECHNIQUE: Axial CT angiography multi-detector data acquisition was obtained from the to the following intravenous administration of IV 100mL Isovue-370. Axial images and MIP images were reconstructed from the axial data set. Post-processing of the angiographic images was performed, with multiplanar reformation and 3D reconstruction. Individualized dose optimization techniques were used for this CT. TECHNICAL QUALITY: Good COMPARISON: None. Descriptors of Narrowing: None (0%) Mild (< 50%) Moderate (50-70%) Severe (70-90%) Subtotal/Total Occlusion (90-100%) Non-Evaluable (technically non-diagnostic FINDINGS: There is a 3 cm x 2.7 cm fat-containing lesion in the right adrenal gland in comparison with the adenoma. Fatty infiltration of the liver. 2 cysts are seen in the left lobe of the liver measuring 1.3 cm. A small cyst is seen in the caudate lobe of the liver. Small umbilical hernia containing fat. Abdominal aorta: Atherosclerotic plaque formation of the abdominal aorta. No evidence of a aneurysmal formation. Celiac and superior mesenteric arteries: Atherosclerotic plaque formation at the origin of the celiac and superior mesenteric arteries. Inferior mesenteric artery: No demonstrated narrowing. Right renal artery(arteries): Mild atherosclerotic plaque at the origin of the right renal artery. Left renal artery(arteries): Mild atherosclerotic plaque at the origin of the left renal artery. Right common iliac artery: Nonstenotic calcific plaques. Right external iliac artery: Nonstenotic calcific plaques. Right internal iliac artery: No demonstrated narrowing. Left common iliac artery: Nonstenotic calcific plaques. Left external iliac artery: Nonstenotic calcific plaques. Left internal iliac artery: No demonstrated narrowing. RIGHT LOWER EXTREMITY Right common femoral artery: No demonstrated narrowing. Right profundus femoris: No demonstrated narrowing. Right superficial femoral: Scattered nonstenotic calcific plaques throughout the course of the superior femoral artery. Right popliteal artery: Mildly calcific plaques in the popliteal artery. Right tibioperoneal trunk: Mildly stenotic calcific plaques. Right anterior tibial artery: Tight stenosis at its origin. Right posterior tibial artery: No demonstrated narrowing. Right peroneal artery: No demonstrated narrowing. LEFT LOWER EXTREMITY Left common femoral artery: Nonstenotic calcific plaques. Left profundus femoris: No demonstrated narrowing. Left superficial femoral: Nonstenotic calcific plaques. Left popliteal artery: Nonstenotic calcific plaques. Left tibioperoneal trunk: No demonstrated narrowing. Left anterior tibial artery: No demonstrated narrowing. Left posterior tibial artery: No demonstrated narrowing. Left peroneal artery: No demonstrated narrowing. CT/CTA Abd w/Runoff W/WO Contrast IMPRESSION: Three-vessel runoff in both lower extremities. Multiple nonstenotic calcific plaques as described. Electronically Signed: Papa Hammer MD at 10:39 EST , Service support ,
== END ==
PROVIDERS: PCP Family Medicine Geriatric Medicine; Referring Provider Surgery Vascular Surgery; Visit Provider Surgery Vascular Surgery
DX: I74.09 Other arterial embolism and thrombosis of abdominal aorta (principal); I70.213 Atherosclerosis of native arteries of extremities with intermittent claudication, bilateral legs; M79.605 Pain in left leg; E78.00 Pure hypercholesterolemia, unspecified; Z87.19 Personal history of other diseases of the digestive system
CPT/HCPCS: 36415; 74174; 75635; 82565; 84520; Q9967

== ENCOUNTER → 2021-09-07 13:04 | Outpatient (CLI) | payer OTHER, MEDICARE, SELFPAY ==
--- NOTE | 2021-09-07 13:15 | RAD_ITS ---
STUDY: X-RAY - UNILATERAL RIBS ( LEFT ) WITH CHEST REASON FOR EXAM: Male, 70 years old. L RIB CONTUSION TECHNIQUE - RIBS: 4 view(s) of the ribs. TECHNIQUE - CHEST: Single PA view of the chest. COMPARISON: Comparison is made with prior examination dated 03/11/2018. FINDINGS - RIBS: Nondisplaced fractures involving the anterolateral aspect of the left sixth and seventh ribs. FINDINGS - CHEST: Mild degree of increased linear markings at the left lung base suggestive of linear atelectasis and/or scarring. There is no demonstrated pleural abnormality. Normal size heart. Normal mediastinum and jacinto. Normal visualized pulmonary arteries. There is atherosclerotic calcification of the aortic arch with tortuosity. There are diffuse degenerative changes of the visualized thoracic spine. Prior fusion of the lower cervical spine. There is no demonstrated abnormality of the visualized soft tissue structures of the upper abdomen. RAD/Ribs Uni Min 3V w/PA Chest IMPRESSION: RIBS: Nondisplaced left sixth and seventh rib fractures. CHEST: Mild degree of increased signal markings at the left lung base suggestive of left basilar atelectasis and/or scarring. Electronically Signed: Papa Hammer MD at 13:43 EST , Service support ,
== END ==
PROVIDERS: PCP Family Medicine Geriatric Medicine; Referring Provider Family Medicine; Visit Provider Family Medicine
DX: S20.212A Contusion of left front wall of thorax, initial encounter (principal)
CPT/HCPCS: 71101

== ENCOUNTER 2021-09-08 12:43 | Emergency (ER) | payer OTHER, MEDICARE, SELFPAY ==
[2021-09-08 12:44] VITALS: BP 175/80; PULSE 67; RESP 18; TEMP 36.4; O2SAT 98; BMI 25.2
--- NOTE | 2021-09-08 12:48 | ED.RN ---
Pt is workers comp claim from original injury 2 weeks ago
--- NOTE | 2021-09-08 12:58 | ED.VIS.FALL ---
HPI HPI - Fall History of Present Illness Chief Complaint: Fall Informant: patient Occured/Mechanism Occurred: Weeks (1) Mechanism/Context: Yes same level fall and Yes trip Narrative: Tripped over a skid at work, falling to his left side Pain/Injury Location: Left rib cage, left hip Quality of Pain: Aching Current Severity: Moderate Maximum Severity: Moderate Worsened by: Weightbearing, moving Relieved by: Remaining still/rest Associated Symptoms Associated Symptoms: Negative for Parasthesias, Weakness, Loss of function, Inability to ambulate and Loss of consciousness Narrative Narrative: Patient had a fall/injury 1 week ago at work, he works at [employer]. He states that he saw [facility]. physician Dr. Salcedo today, he had some x-rays and was diagnosed with left-sided rib fractures, however he has not had imaging of his left hip yet. He was sent here for further evaluation since the patient has been having pain lateral left hip and groin ever since the injury and it seems to be worsening. Patient has been able to ambulate without assistance just with pain. [facility] Medical History (Updated 09/08/21 @ 19:[address] Alex Bautista MD) Former smoker Kidney stones Home Medications meloxicam 15 mg PO DAILY 09/26/16 [History Last Taken 05/08/17 08:00 15 MG] gabapentin 300 mg PO BID 06/14/19 [History Last Taken Unknown] morphine 15 mg PO TID 10/29/19 [History Last Taken Unknown] fluoxetine 40 mg PO DAILY 10/18/20 [History Last Taken Unknown] pantoprazole 20 mg PO DAILY 10/18/20 [History Last Taken Unknown] Allergy/AdvReac Type Severity Reaction Status Date / Time codeine Allergy AFFECTED Verified 09/08/21 12:45 BREATHING prednisone AdvReac Other Verified 09/08/21 12:45 Surgical History (Updated 09/08/21 @ 13:06 by Nando Lau) History of appendectomy History of left knee replacement Hx of spinal fusion Social History Smoking Status: Former smoker ROS ROS ED Constitutional Constitutional ED: Denies chills or fever(s) Eyes Eyes: Denies change in vision or diplopia ENT ENT ED: Denies ear pain, epistaxis, facial pain or rhinorrhea Cardiovascular Cardiovascular: Denies chest pain or palpitations Respiratory/Chest Respiratory/Chest: Reports other Details: Chest/rib pain, left side ; Denies cough or dyspnea Gastrointestinal Gastrointestinal: Denies abdominal pain, diarrhea, melena, nausea or vomiting Genitourinary Genitourinary ED: Denies dysuria or hematuria Musculoskeletal Musculoskeletal: Reports as per HPI and extremity pain; Denies back pain or neck pain Integumentary Denies abscess, Abrasions, laceration or rash Neurologic Neurologic: Denies confusion, headache(s), paresthesias or weakness EXAM Physical Exam Const Vital Signs: 09/08/21 12:44 09/08/21 13:02 09/08/21 16:25 Temperature 97.5 F L Temperature Source Temporal Pulse Rate 67 Respiratory Rate 18 Respiratory Effort Normal Respiratory Depth Normal Respiratory Pattern Normal Blood Pressure 175/80 H Blood Pressure Mean 111 Pulse Ox 98 97 Oxygen Delivery Method Room Air Room Air Room Air 09/08/21 18:41 Temperature Temperature Source Pulse Rate 82 Respiratory Rate 16 Respiratory Effort Respiratory Depth Respiratory Pattern Blood Pressure 148/74 H Blood Pressure Mean 98 Pulse Ox 97 Oxygen Delivery Method Room Air Positive well nourished and well developed General Appearance ED: well developed and NAD HEENT Reports TM's clear and nasal mucous membranes and turbinates normal atraumatic Face and Sinus: Negative for facial tenderness Tympanic Membrane ED: Yes TM's clear Eyes PERRL and EOMs intact bilaterally Visual Acuity: other Other Details: no entrapment or pain with extraocular movements Neck full ROM and supple General: Negative for tenderness Chest Wall inspection of chest normal and palpation of chest normal Chest: symmetrical chest wall rise; Negative for crepitus or tenderness Resp normal respiratory effort and clear to auscultation bilaterally Percussion: other equal BS bilat Cardio no murmurs Rate: regular rate Rhythm: regular rhythm GI normal to inspection, nondistended, normoactive bowel sounds, soft to palpation and non-tender Back/Spine normal ROM Cervical Spine: Negative for cervical spine tenderness Thoracic Spine / Upper Back: Negative for thoracic spinal tenderness Lumbar Spine / Lower Back: Negative for lumbar spinal tenderness Extremity full ROM Extremity Narrative: Full range of motion left hip but with pain in the groin with doing so. No length discrepancy. Extensive ecchymosis medial thigh without a palpable cord or distal edema. Also 2 large contusions without hematoma lateral left thigh and hip. Tender greater trochanter. ASIS/pelvis stable. General Extremety ED: Yes tenderness Neuro oriented x3, CN's II-XII intact bilaterally, moves all extremities, no focal motor deficits and no sensory deficits noted Hortencia Coma Scale: document GCS findings Spontaneous Obeys Commands Oriented 15 Sensorium / Orientation: awake and alert Psych mental status grossly normal and thought process normal Skin no wounds Skin Narrative: Extensive ecchymoses left thigh, skin intact. See above. Lesions: no lesions Rashes: no rashes MDM MDM MDM Narrative Medical decision making narrative: Initial plain films were obtained and are negative, then a CT was obtained that is negative/normal as well. This is not sensitive enough to rule out fracture, so we discussed with MRI, they had some cancellations we were able to get a stat MRI in the patient's hip, given that if it is positive he should be admitted and if negative, he is able to continue weightbearing as tolerated and follow-up as an outpatient. MRI was obtained, however the patient has a pain pump, and after discussing with his pain management doctor, the pump had to be drained medication first, then he got the MRI, then they could refill the pump with medication which was done by sending the patient to the clinic by wheelchair back and forth from the emergency department. Results are seen below, patient does not have any acute bony fracture, but there is signs of muscle tearing of the vastus lateralis, with diffuse associated edema, this certainly could explain his diffuse ecchymosis which is indicative of injury, not DVT. He does not have peripheral edema to suggest this. Given all of this I feel he can safely be discharged with supportive care for now and outpatient follow-up back with [facility]. He is comfortable with that plan. Radiography Diagnostic Testing: Clinical Impression(s) from Imaging Studies Hip/Pelvis X-Ray 09/08/21 13:22 IMPRESSION: No fracture is seen. Electronically Signed: Papa Hammer MD at 13:45 EST , Service support , Lower Extremity CT 09/08/21 14:10 IMPRESSION: No fracture or dislocation is seen. Status post laminectomy and fusion at the L4-L5 and L5-S1 levels. Electronically Signed: Papa Hammer MD at 14:39 EST , Service support , Lower Extremity MRI 09/08/21 16:05 IMPRESSION: 1. High-grade sprain injury with mild partial tearing of the fibers of the left vastus lateralis muscle noted from the proximal to middle one third femoral region. A small intramuscular hematoma is also present measuring 5.42 cm. The affected fibers are diffusely edematous. 2. Mild subcutaneous edema is seen at the periphery of both upper thighs. 3. A small left hip joint effusion is also present. No visualized marrow edema or fracture. Electronically Signed: Perez Thompson MD at 18:15 EST , Service support , Discharge Plan Triage Chief Complaint: Fall ED Provider: Alex Bautista Dx/Rx/DC Orders Clinical Impression: Sprain, quadricep Instructions: Treating?Strains and Sprains Prescriptions: No Action meloxicam 15 MG tablet 15 mg PO DAILY RF: 0 gabapentin 300 MG capsule 300 mg PO BID RF: 0 morphine 15 MG tablet 15 mg PO TID RF: 0 fluoxetine 40 MG capsule 40 mg PO DAILY RF: 0 pantoprazole 20 MG tablet 20 mg PO DAILY RF: 0 Primary Care Provider: Sj Pinto Chi Referrals: Sj Pinto Chi, MD [Primary Care Provider] - [facility]] - (1-5 days, call for follow up appt) Activity Restrictions/Additional Instructions: MRI showed vastus lateralis muscle fiber tears from the proximal to the middle third of the muscle, which likely explains the extensive ecchymosis. Negative hip bone fracture. Disposition Disposition: Home, Self Care
[2021-09-08 13:02] VITALS: O2SAT 97
--- NOTE | 2021-09-08 13:22 | RAD_ITS ---
STUDY: X-RAY - PELVIS AND LEFT HIP REASON FOR EXAM: Male, 70 years old. Left hip pain following a fall. TECHNIQUE: 3 views of the pelvis and hip. COMPARISON: None. FINDINGS: There is a non-specific bowel gas pattern. Soft tissue calcification overlying both buttocks. Normal bilateral iliac wings, sacroiliac joints and visualized sacrum. Normal bilateral superior and inferior pubic rami. Normal pubic symphysis. Normal bilateral ischial tuberosities. There is widening of the right femoral neck suggestive of a femoral acetabular impingement. There is evidence of a right lateral acetabular spur. Mild degree of the left joint space narrowing. No fractures The patient is status post laminectomy and fusion at the L4-L5 and L5-S1 levels. RAD/HIP, UNI W/ Pelvis 2-3 Views IMPRESSION: No fracture is seen. Electronically Signed: Papa Hammer MD at 13:45 EST , Service support ,
--- NOTE | 2021-09-08 14:10 | CT_ITS ---
STUDY: CT SCAN HIP LEFT REASON FOR EXAM: Male, 70 years old. Injury, neg XR RADIATION DOSAGE (If Supplied By Facility): CTDIvol = ( 14.93 ) mGy, DLP = ( 626.55 ) mGycm. Individualized dose optimization techniques were used for this CT.? TECHNIQUE: Multiple axial tomographic images of the left hip joint were obtained without intravenous contrast administration. Coronal and sagittal reconstruction was obtained as well. COMPARISON: None. FINDINGS: The patient is status post laminectomy fusion at the L4-L5 and L5-S1 levels. The left hip joint is unremarkable. No evidence of fracture or dislocation. There is evidence of calcified granulomas overlying the left buttock. CT/Extremity Lower without Contra IMPRESSION: No fracture or dislocation is seen. Status post laminectomy and fusion at the L4-L5 and L5-S1 levels. Electronically Signed: Papa Hammer MD at 14:39 EST , Service support ,
--- NOTE | 2021-09-08 16:05 | MRI_ITS ---
STUDY: MRI LEFT HIP REASON FOR EXAM: Male, 70 years old. FALL 1 WEEK AGO. PAIN IN GROIN. TRIPPED OVER PALLET AT WORK. TECHNIQUE: Standardized fat and water weighted pulse sequences were obtained in all 3 orthogonal planes. COMPARISON: Pelvic x-ray dated September 08, 2021 FINDINGS: High-grade sprain injury with mild partial tearing of the fibers of the left vastus lateralis muscle noted from the proximal to middle one third femoral region. A small intramuscular hematoma is also present measuring 5.42 cm. The affected fibers are diffusely edematous. Mild subcutaneous edema is seen at the periphery of both upper thighs. A small left hip joint effusion is also present. No visualized marrow edema or fracture. Tiny right hip joint effusion noted. Lumbar spine hardware results in significant metallic artifact and limited visualization of this region. The visualized aspects of the sacrum and iliac wings are unremarkable. No aggressive process is present. There is mild articular narrowing of the hip joint, with less than 50% loss of the hyaline cartilage. Normal acetabulum. Normal labrum. Normal femoral head. Normal femoral neck and intratrochanteric region. Normal gluteus minimus, medius and iliopsoas tendons and distal insertions. There is no trochanteric, iliopsoas or iliopectineal bursitis. Normal superior and inferior pubic rami. Normal pubic symphysis. Normal ischial tuberosity. Normal origin of the hamstring tendons. Normal visualized soft tissue structures of the pelvis. MRI/Lower Ext Joint Only (Routine) IMPRESSION: 1. High-grade sprain injury with mild partial tearing of the fibers of the left vastus lateralis muscle noted from the proximal to middle one third femoral region. A small intramuscular hematoma is also present measuring 5.42 cm. The affected fibers are diffusely edematous. 2. Mild subcutaneous edema is seen at the periphery of both upper thighs. 3. A small left hip joint effusion is also present. No visualized marrow edema or fracture. Electronically Signed: Perez Thompson MD at 18:15 EST , Service support ,
[2021-09-08 18:41] VITALS: BP 148/74; PULSE 82; RESP 16; O2SAT 97
== END 2021-09-08 19:40 | disposition home or self-care (01) ==
PROVIDERS: Emergency Provider Emergency Medicine; PCP Family Medicine Geriatric Medicine
DX: S73.192A Other sprain of left hip, initial encounter (principal); W18.09XA Striking against other object with subsequent fall, initial encounter; Y93.9 Activity, unspecified; Y92.9 Unspecified place or not applicable; Z87.891 Personal history of nicotine dependence
CPT/HCPCS: 73502; 73700; 73721; 99282

== ENCOUNTER 2021-11-16 08:53 | Outpatient (CLI) | payer BC, MEDICARE, SELFPAY ==
[2021-11-16 12:08] LABS: Absolute Neutrophil Count 7.2 X10^3/uL (2.0-7.7); Basophil# 0.02 X10^3/uL; Basophil% 0.2 % (0-1); Eosinophil# 0.03 X10^3/uL; Eosinophils% 0.3 % (0-5); Hematocrit 40.5 % (40-54); Hemoglobin 12.8 g/dL (13.0-16.5); Lymphocyte % 15.2 % (19-41); Mean Corp Hgb Conc 31.6 g/dL (32-36); Mean Corpuscular Hgb 30.2 pg (27.0-32.0); Mean Corpuscular Volume 95.5 fL (80-94); Mean Platelet Vol. 11.7 fl (6.2-12.0); Monocyte# 0.56 X10^3/uL; Monocyte% 6.1 % (0-10); NRBC Flagged by Analyzer 0 % (0-5); Neutrophil # 7.18 X10^3/uL (2.7-7.7); Neutrophil % 77.8 % (47-70); Platelet Count 253 K/mm3 (150-450); RBC Distribution Width CV 12.4 % (11.6-14.6); RBC Distribution Width SD 43.3 fl (35.1-43.9); Red Blood Count 4.24 M/mm3 (4.6-6.2); White Blood Count 9.2 K/mm3 (4.4-11.0)
[2021-11-16 12:46] LABS: ALB/GLOB Ratio 0.9 RATIO (0.9-2.4); AST(SGOT) 19 U/L (15-37); Alanine Aminotransfer ALT/SGPT 23 U/L (16-61); Albumin, Serum 3.4 g/dL (3.2-5.0); Alkaline Phosphatase 104 U/L (45-117); Anion Gap 5 (5-15); BUN 27 mg/dL (7-18); BUN/Creat Ratio 29.7 RATIO (10-20); Calcium,Total 8.5 mg/dL (8.5-10.1); Chloride 105 mmol/L (98-107); Creatinine, Serum 0.91 mg/dL (0.70-1.30); EST Glomerular Filtration Rate 87 mL/min (>60); Est Glom Filt Rate - Afr Amer 105 mL/min (>60); Globulin 3.7 g/dL (2.2-4.2); Glucose 117 mg/dL (74-106); Potassium 3.8 mmol/L (3.5-5.1); Protein, Total 7.1 g/dL (6.4-8.2); Sodium Level 139 mmol/L (136-145); Thyroid Stim Hormone (TSH) 0.32 uIU/mL (0.358-3.74)
[2021-11-17 10:12] LABS: T3 Uptake 30 % (33-40); T4 Free Direct 0.97 ng/dL (0.76-1.46)
== END 2021-11-16 23:59 | disposition home or self-care (01) ==
PROVIDERS: PCP Family Medicine Geriatric Medicine; Visit Provider Family Medicine Geriatric Medicine
DX: I10 Essential (primary) hypertension (principal); E55.9 Vitamin D deficiency, unspecified; E05.90 Thyrotoxicosis, unspecified without thyrotoxic crisis or storm
CPT/HCPCS: 36415; 80053; 82306; 84439; 84443; 84479; 85025

== ENCOUNTER 2021-12-12 14:01 | Outpatient (CLI) | payer OTHER, BC, MEDICARE, SELFPAY ==
--- NOTE | 2021-12-12 14:23 | MRI_ITS ---
EXAM: MR LEFT LOWER EXTREMITY WITHOUT INTRAVENOUS CONTRAST, HIP CLINICAL INDICATION: CONTUSION LEFT THIGH -- NEEDS DISC OF MRI 09/08/21 AND 12/12/21 TECHNIQUE: Multiplanar and multisequence MR images of the left hip without intravenous contrast. This report was created using [employer] report generation technology. COMPARISON: Sep 08 2021 4:10pm FINDINGS: TENDONS: FLEXORS: Unremarkable. Intact. EXTENSORS/HAMSTRING: Unremarkable. Intact. ABDUCTORS: Unremarkable. Intact. ADDUCTORS: Unremarkable. Intact. ROTATORS: Unremarkable. Intact. MUSCLES: Resolution of the patient''s prior tear and hematoma of the left vastus lateralis muscle. FLUID: Unremarkable. No joint effusion. No trochanteric bursitis. LABRUM: Unremarkable. No evidence of a tear on this non-arthrogram exam. CARTILAGE: Unremarkable. Articular cartilage intact. BONES/JOINTS: Partially visualized lumbar spinal fixation hardware noted. No femoral neck fracture. No avascular necrosis of the femoral head. No sacral insufficiency fracture. No suspicious bone marrow signal alteration. OTHER SOFT TISSUES: Mild improved subcutaneous edema along the lateral aspect of the hips. MRI/Lower Ext Joint Only (Routine) IMPRESSION: 1. Mild improved subcutaneous edema along the lateral aspect of the hips. 2. Resolution of the patient''s prior tear and hematoma of the left vastus lateralis muscle. Electronically Signed: Claudio Hernandez MD at 16:44 EDT Reading Location ID and State: [facility] / [place] , Service support ,
== END 2021-12-12 23:59 | disposition home or self-care (01) ==
LOC: MRI 14:06
PROVIDERS: PCP Family Medicine Geriatric Medicine; Referring Provider Family Medicine; Visit Provider Family Medicine
DX: S70.12XA Contusion of left thigh, initial encounter (principal)
CPT/HCPCS: 73721

== ENCOUNTER 2022-01-18 07:50 | Outpatient (RCR) | payer BC, MEDICARE, SELFPAY ==
--- NOTE | 2022-01-19 12:31 | HP.FCE ---
Floor (Occasional 1-33% of Day): 20 Floor (Frequent 34-66% of Day): 10 Floor (Constant 67-100% of Day): NA Floor PDL: Light Knee (Occasional 1-33% of Day): 15 Knee (Frequent 34-66% of Day): 7.5 Knee (Constant 67-100% of Day): NA Knee PDL: Sedentary-Light Waist (Occasional 1-33% of Day): 15 Waist (Frequent 34-66% of Day): 7.5 Waist (Constant 67-100% of Day): NA Waist PDL: Sedentary-Light Shoulder (Occasional 1-33% of Day): 15 Shoulder (Frequent 34-66% of Day): 7.5 Shoulder (Constant 67-100% of Day): NA Shoulder PDL: Sedentary-Light Overhead (Occasional 1-33% of Day): 15 Overhead (Frequent 34-66% of Day): 7.5 Overhead (Constant 67-100% of Day): NA Overhead PDL: Sedentary-Light Comments: Candice exertion average 8/10, pain 9/10 in low back and L hip area. Pt. demonstrating insignificant (no ability) physical demand level for repetitive movement/work at this time secondary to pain and physical exertion levels. Bending: Occasional Ability (1-33% of day) Comments: requires sturdy surface to use for balance. Squatting: Occasional Ability (1-33% of day) Comments: requires sturdy surface for balance, had 2 LOB's during 10xfast Kneeling: Occasional Ability (1-33% of day) Comments: requires sturdy surface for balance, unable to bring knee to touch ground Reaching out: Frequent Ability (34-66% of day) Comments: seated, continues to have low back pain Reaching up: Frequent Ability (34-66% of day) Comments: seated, continues to have low back pain Sitting: Frequent Ability (34-66% of day) Comments: can sit for 35-60 at a time before repositioning Walking: Occasional Ability (1-33% of day) Comments: uses a device for support, causes increase in back pain Standing: Occasional Ability (1-33% of day) Comments: uses support for balance and for safety, increases low back pain Duration Sedentary Sedentary Light Light Light Medium Medium Medium Heavy Very Heavy Heavy Occasional (0-33% of day) Frequent (34-66% of day) Constant (67-100% of day) 10 # Negligible Negligible 15 # 8 # Negligible 20 # 10# Negli. 35 # 18 # 7 # 50 # 25 # 10 # 75 # 100 # >100 # 38 # 50 # >50 # 15 # 20 # >20 # Weight:: 68.039 kg Hand Dominance: Right BP (Medication Use/Usual Values per pt report): pt. reported not taking BP meds Medical History Including Restrictions: Pt. has chronic back pain and being treated by Dr. Soni. Diagnoses: Degenerative disc disease, chronic pain, lumbar DD, sacroiliitis, hard of hearing, deficits with vision. History of left knee replacement &. spinal fusion Symptoms: Pt. has pain through low back and L groin area. Pt. reported that on September 01, 2021 while at work, he tripped over skid, broke a couple of ribs on L and injured L hip. He went to the ER. He has had 2 MRI's, 2 CAT scans, several x-rays, and physical therapy for about 6 weeks. There was no corrective surgeries to be completed from injury. He reported he has been back to work off and on. He does not feel like he is presently doing physically well. He reports that PT did not help. He does use Uses topical pain cream, back brace, cane, walker, lay flat often. At times he stretches. Pain: Chronic pain. Pt. has a pain pump. Used the Silvino pain scale: ? Sensory Score = 5 points. ? Affective Score = 4 points. ? Evaluative Score = 3 points. ? Miscellaneous Score = 5 points. ? Pain Rating Index (MANDY) = 17 points. ? Present Pain Intensity (PPI) = 4 points. ? Pain Score Interpretation: The higher the score, the greater the perceived pain. 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 The total amount of time needed to be in a sitting position to perform his job over the work shift is 0. The amount of time at one time he need to be able to perform sitting until he is able to change positions on his job is 0. The total amount of time he needs to be in a standing position to perform his job over his work shift is 8 hours. The amount of time at one time he needs to be able to perform standing until he is able to change positions on his job is 30 min-60 min. The heaviest weight he lifts is ~35#, heaviest weight that pulls/pushes is several hundred pounds on wheels. He does this less than 100 times a day. The percentage of his shift that he needs to perform simple grasping, firm grasping, pinching is ~45%. The percentage of his shift that he needs to perform bending, squat, kneel. ~10%, using stairs or ladder 0%. Behavioral: Pt. has a calm and quiet demeanor. He attempted all tasks that were asked of him, even if they appeared challenging or knowingly would increase his pain. Used the Oswestry disability index (back) to assess: 34/50 = 68% (61%-80%: crippled: Back pain impinges on all aspects of the patient's life. Positive intervention is required.). Pain Intensity: Medications provide moderate relief; Personal Care: I need help but can manage most of my care; Sitting: Pain prevents me from sitting for more than 1 hour; Standing: Pain prevents me from standing for more than 1/2 hour; Sleeping: Even with pain medication, I sleep less than 4 hours;. Lifting: I can lift only very light weights; Walking: I can walk only with crutches or a cane; Social Life: Pain restricts my social life to home; Traveling: Pain restricts travel to short necessary journeys under 1/2 hour; Employment /Homemaking: Pain prevents even light duties; ADLS: Pt. wears a back support brace and uses quad cane for functional mobility. Pt. also reports using a ww for walking as needed. Pt. reports that his assists with donning jacket and button up shirt at times. This S/OT assisted with donning jacket at end of eval. Pt. reported on Functional activities questionnaire: he does not exercises regularly, that he can do some yardwork if he paces himself over the day, that he cannot sit through a movie, can walk around the yard with a quad cane, cannot walk around the block, he can shop for groceries, can carry groceries in the house, cannot do laundry, can walk up and down steps, cannot do household work/chores, can, complete ADL's. He reported that he can drive 30 minutes before needing to stop and stretch, can walk at the mall for 10 min, that he sits most of the day, he stands/walks little during the day, and his most comfortable position is lying down (supine). Physical Examination: Pt. reported being 5'7, however he appeared to be shorter than S/OT 5'6. He wears corrective eye wear and has hearing aids. He also wears a back support brace. At start of evaluation: BP 178/85 pt. reported he does not take BP meds, that he has taken BP meds off and on. O2 98%. Pulse 61. Pain 8/10 ROM: Through visual observation: Shoulder flexion/extension B UE WNL, Abduction/Adduction B UE WNL, Elbow flexion B UE WNL, extension was measured using goniometer at ?20 on L and -25 on R. Forearm supination /pronation B UE WNL, Wrist flexion/extension B UE WNL. Pt. has arthritic hands and has difficulty with finger extension in both hands all fingers. Visual observation of Hip flexion/extension B LE WNL during sitting & standing, Knee flexion/extension B LE WNL. Strength: Using mini FET to measure strength: Shoulder flexion L UE 17.4 R UE 21, extension L 15.8 R 12.6, elbow flexion L 14.5 R 14.9 /extension L 11.2 R 14.9, hip flexion L 27.2 R 33.7 extension L 22.0 R 20.8, knee flexion L 17.6 R 19.0 extension L 19.4 R 16.4. Right Manager Intermediate Strength Average: 40.00 Right Manager Intermediate Strength Percentile: 90% Left Manager Intermediate Strength Average: 40.00 Left Manager Intermediate Strength Percentile: 80% Right Lateral Pinch Average: 8.66 Left Lateral Pinch Average: 7.66 Left Lateral Pinch Percentile: less than 10% Right Tripod Pinch Average: 6.33 Right Tripod Pinch Percentile: less than 10% Left Tripod Pinch Average: 8.33 Left Tripod Pinch Percentile: less than 10% Comments: R & L optometry doctor strength assessed using dynamometer. He is in the 80-90th percentile for his male age group. Used the pinch meter to assess the lateral and tripod pinch. He is below the 10th percentile for his male age group. Sensation: Used Vancourt-Magali monofilament testing. 2.83 is normal sensation, 3.61, 3.84 and 4.08 is diminished light touch. R hand thumb 3.61 , index finger 4.08 , middle finger 3.61, ring finger 3.84, pinky finger 3.84. L hand thumb 3.61, index finger 3.84, middle finger 3.61, ring finger 3.84, pinky finger 3.84 Fine Motor: Fine motor was assessed using 9-hole peg test: R hand 25.89 seconds 20th percentile for his age & L hand 30.37 seconds 25th percentile for his age. Balance: Balance was assessed using the forward reach test (FRT) & single leg stance. FRT standing 4 ? , 4 ?, 3. A score of less than 6 inches indicates a high risk for falls. His pain 8/10 L groin area. Single leg stance standing on R LE 25.25 seconds & LLE 8.28 seconds. The average for male between 70-79 is 50 seconds. Pain 8/10 in L groin Bending: Pt. completed bending towards ground 3 times, 10 times, & 10 times fast. 3x using table for support with L hand. 10x using table for support with L hand. 10xFast using table for support with L hand. Occasional ability 1-33% of day. Pain 9/10 Squatting: Pt. completed squatting 3 times, 10 times, & 10 times fast. 3x used table for support with L hand. 10x used table for support with L hand. 10xFast using table for support with L hand, pt. had 2 loss of balances but was able to self-correct. Occasional ability 1-33% of day. Pain 9/10 left lower back/hip. He does not have a deep enough squat to touch the ground with hand. Kneeling: Pt. completed bending towards ground 3 times, 10 times, & 10 times fast. 3x used table for support with L hand. 10x used table for support with L hand. 10xFast same speed at 10x, does not come to ground, used table for support with L hand. Occasional ability 1-33% of day. Pain 9/10 left lower back/hip Reaching out/up: Pt. completed reaching out/up 3 times, 10 times, & 10 times fast while seated. reaching out with bilateral arms simultaneously 3x, 10x, 10xFast no deficits observed. Pain 9/10 in left lower back/hip. reaching up with bilateral arms simultaneously 3x, 10x, 10xFast no deficits observed. Pain 9/10 left lower back/hip. Frequent ability 34-66% of the day. Walking: Walking assessed with 6 minute walk test (6MWT) & Timed up & go (TUG). Pt. requested to use a different assistive gait device than his quad cane to complete. S/OT provide pt. with U-step walker for smooth glide and a seat if needed. He took 3 standing rest breaks. Pain 9/10 in left lower back/hip. Candice exertion scale 9/10. TUG using chair without arms and quad cane for balance 25.32 seconds, 23.71 seconds, 24.28 seconds. A score of 20-30 seconds that there is a problem with gait and cannot go outside alone without an assistive gait device. Occasional ability 1-33% of the day. Standing: Pt. reported on survey that he is able to stand for about 10 minutes at one time before needing to sit down. Pt. was not up longer than 7 minutes during this evaluation. Occasional ability 1-33% of the day. Sitting: During this evaluation pt. was seated for 35 minutes at most during one time. Pt. reports on survey that he able to sit for 1 hour before needing to get up and readjust positions. frequent ability 34-66% of the day. Climbing Stairs: Stairs assessed using the Step test evaluation of performance on stairs (STEPS). Ascending stairs 7/10. Descending stairs 8/10. Total score 15/20. He required bilateral hand rails to propel himself up and to assist with descending balance with step-through. He had normal foot clearance, stayed in midline, and was stable. Pt. reported that he rarely goes to his 2nd floor of his home secondary to difficulty and pain in low back. occasional ability 1-33% of the day. Floor Lift: Pt. assessed by lifting box using bilateral hands from floor x1, max load 20#, occasional load is 10 #, constant is N/A. Candice exertion 9/10 and Pain 9/10 in lower back and L hip area. Pt. demo LIGHT PYSICAL DEMAND LEVEL Knee Lift: Pt. assessed by lifting box using bilateral hands from knee height x1, max load 15#, occasional load is 7.5 #, constant load lift is N/A. Candice exertion 8/10 Pain 9/10 in lower back and L hip area. Pt. demo SEDENTARY LIGHT PYSICAL DEMAND LEVEL Waist Lift: Pt. assessed by lifting box using bilateral hands from waist height x1, max load 15#, occasional load is 7.5 #, constant load lift is N/A. Candice exertion 9/10 Pain 9/10 in lower back and L hip area. Pt. demo SEDENTARY LIGHT PYSICAL DEMAND LEVEL Shoulder Lift: Pt. assessed by lifting box using bilateral hands from shoulder height x1, max load 15#, occasional load is 7.5 #, constant load lift is N/A. Candice exertion 10/10 Pain 9/10 in lower back and L hip area. Pt. demo SEDENTARY LIGHT PYSICAL DEMAND LEVEL Overhead Lift: Pt. assessed by lifting box using bilateral hands overhead x1, max load 15#, occasional load is 7.5 #, constant load lift is N/A. Candice exertion 9/10 Pain 9/10 in lower back and L hip area. Pt. demo SEDENTARY LIGHT PYSICAL DEMAND LEVEL Carrying: Carrying -Transporting 10# in L hand while using quad cane in R hand. He went 25 ft turned around and came back 25 ft to his seat. Candice exertion 9/10 Pain 9/10. Comments: At end of FCE: BP 167/96. HR 60. O2 98%. Pulse 62. Pain 9/10 left low back and groin area. pain is limiting factor in pts mobility. This assessment was directly supervised and doc. reviewed and approved by Ana Lilia ODE/Jose David, CHT.
--- NOTE | 2022-01-19 12:31 | HP.OTFCE.D ---
FCE D/C Summary - Discharge BREANNA HERRING was seen for a one time visit for an FCE on 01/18/22 and is discharged.
== END 2022-01-18 19:00 | disposition home or self-care (01) ==
LOC: OT 07:50
PROVIDERS: PCP Family Medicine Geriatric Medicine; Referring Provider Anesthesiology Pain Medicine; Visit Provider Anesthesiology Pain Medicine
DX: M51.37 Other intervertebral disc degeneration, lumbosacral region (principal); G89.4 Chronic pain syndrome; M46.1 Sacroiliitis, not elsewhere classified; M51.36 Other intervertebral disc degeneration, lumbar region
CPT/HCPCS: 97750

== ENCOUNTER 2022-01-18 10:03 | Emergency (ER) | payer BC, MEDICARE, SELFPAY ==
[2022-01-18 10:04] VITALS: BP 168/76; PULSE 63; RESP 14; TEMP 36.2; O2SAT 98; BMI 24.2
--- NOTE | 2022-01-18 10:15 | CT_ITS ---
STUDY: CT ABDOMEN AND PELVIS WITHOUT CONTRAST REASON FOR EXAM: Male, 71 years old. Hematuria. Left flank pain. RADIATION DOSAGE (If Supplied By Facility): CTDIvol = ( 7.67 ) mGy, DLP = ( 366.78 ) mGycm TECHNIQUE: Transaxial images were obtained from the dome of the diaphragm to the symphysis pubis without oral contrast, and without intravenous contrast. Sagittal and coronal images were reconstructed. Individualized dose optimization techniques were used for this CT. COMPARISON: Comparison is made with prior study dated 02/08/2019. FINDINGS: Minimal increased markings at the lung bases suggest some mild bibasilar atelectasis. Coronary artery calcification. Stable scattered cysts in both lobes of the liver. Normal gallbladder and extrahepatic biliary system. Normal spleen. Normal pancreas. Stable 3 cm fat-containing nodule in the right adrenal gland suggestive of a myelolipoma. Scattered tiny nonobstructive right intrarenal calculi. Normal left kidney. Normal visualized stomach. Normal small intestine. There are multiple colonic diverticula consistent with diverticulosis. The appendix is visualized and appears normal. There is diffuse atherosclerotic calcification of the abdominal aorta and its major visceral branches, without a demonstrated aneurysm. Normal inferior vena cava. Normal retroperitoneum. Normal urinary bladder. There is a small umbilical hernia containing nonobstructive bowel. There are diffuse degenerative changes of the visualized lumbar spine. Stable fusion in the lower lumbar spine. CT/Abdomen/Pelvis without Cont IMPRESSION: Stable examination. No acute abnormality is seen. Electronically Signed: Papa Hammer MD at 11:22 EDT ,
--- NOTE | 2022-01-18 10:16 | EDS_ITS ---
HPI History of Present Illness Chief Complaint: Complaint Informant: patient Narrative Narrative: 71-year-old male presenting to the emergency department chief complaint of hematuria. Patient states that he noticed this yesterday. He has not had any urinary retention. He denies seeing any clots. He is on Plavix. He denies any long trips or trauma. He denies any abdominal pain. No nausea or vomiting. Does not regularly see a urologist. He has had a kidney stone in the past. [facility] Medical History Arthritis Chest pain Essential hypertension Hydronephrosis with obstructing calculus Hyperlipidemia Kidney stones Peripheral vascular disease of extremity with claudication Right bundle branch block (RBBB) Ureteral calculus, right Home Medications meloxicam 15 mg PO DAILY 09/26/16 [History Last Taken 05/08/17 08:00 15 MG] clopidogrel 75 mg tablet 75 mg PO DAILY tab 10/14/21 [History Last Taken Unknown] famotidine 40 mg tablet 40 mg PO DAILY 10/14/21 [History Last Taken Unknown] losartan 100 mg-hydrochlorothiazide 12.5 mg tablet 1 tab PO DAILY 10/14/21 [History Last Taken Unknown] potassium chloride 20 mEq tablet,extended release(part/cryst) 20 meq PO DAILY 10/14/21 [History Last Taken Unknown] pravastatin 80 mg tablet 80 mg PO QHS 10/14/21 [History Last Taken Unknown] sumatriptan succinate 100 mg tablet 100 mg PO ONCE PRN 10/14/21 [History Last Taken Unknown] sumatriptan succinate 6 mg/0.5 mL subcutaneous pen injector 6 mg SUBCUT ONCE ml 10/14/21 [History Last Taken Unknown] ciprofloxacin HCl 500 mg PO BID #14 tablet 01/18/22 [Rx Last Taken Unknown] hydrocodone-acetaminophen 1 tab PO Q6H PRN PRN 3 Days #12 tablet 01/18/22 [Rx Last Taken Unknown] Allergy/AdvReac Type Severity Reaction Status Date / Time codeine Allergy AFFECTED Verified 01/18/22 10:05 BREATHING prednisone AdvReac Other Verified 01/18/22 10:05 Family History Father Hyperlipidemia Surgical History H/O arthroscopic knee surgery H/O excision of lamina of cervical vertebra for decompression of spinal cord History of appendectomy History of colonoscopy History of hemorrhoidectomy History of left knee replacement History of lumbar laminectomy History of repair of rotator cuff History of tonsillectomy Social History Smoking Status: Former smoker quit date: 09/17/81 pack-years: 19 ROS ROS ED Constitutional Constitutional ED: Denies chills, fever(s) or weight loss Eyes Eyes: Denies change in vision or diplopia ENT ENT ED: Denies ear pain, rhinorrhea or sore throat Cardiovascular Cardiovascular: Denies chest pain, orthopnea, palpitations or racing heartbeat Respiratory/Chest Respiratory/Chest: Denies cough, dyspnea or orthopnea Gastrointestinal Gastrointestinal: Denies abdominal pain, diarrhea, nausea or vomiting Genitourinary Genitourinary ED: Reports hematuria; Denies dysuria or urinary frequency Musculoskeletal Musculoskeletal: Denies arthralgias or myalgias Integumentary Denies abscess or rash Neurologic Neurologic: Denies headache(s) or weakness Psychiatric Psychiatric: Denies anxiety, depression, suicidal ideation or suicidal thoughts Endocrine Endocrinology: Denies polydipsia, polyphagia or polyuria Allergic/Immunologic Allergic/Immunologic ED: Denies mouth swelling, tongue swelling or urticaria EXAM Physical Exam Const Vital Signs: 01/18/22 10:04 Temperature 97.2 F L Temperature Source Temporal Pulse Rate 63 Respiratory Rate 14 Blood Pressure 168/76 H Blood Pressure Mean 106 Pulse Ox 98 Oxygen Delivery Method Room Air Positive well nourished and well developed General Appearance ED: well developed HEENT Reports normocephalic, head/scalp atraumatic and moist mucous membranes Negative for trauma Tympanic Membrane ED: Yes TM's clear Eyes PERRL and EOMs intact bilaterally Neck no lymphadenopathy, supple and no JVD Resp normal respiratory effort and clear to auscultation bilaterally Cardio regular rate, regular rhythm and no murmurs GI normal to inspection, nondistended, normoactive bowel sounds and non-tender Palpation: soft Back/Spine no CVA tenderness and normal ROM Extremity normal to inspection General Extremety ED: Negative for edema General Extremity: Negative for edema Neuro oriented x3 and CN's II-XII intact bilaterally Sensorium / Orientation: alert Motor Exam: strength 5/5 throughout Psych mental status grossly normal Mood & Affect: Negative for depressed or tearful Skin no rashes or lesions noted and no wounds MDM MDM MDM Narrative Medical decision making narrative: White count is normal at 6.5. Creatinine 0.66. Urinalysis greater than 100 red cells 10-25 white cells 1+ bacteria and positive nitrates. This was sent for culture. CT of the abdomen pelvis demonstrates a proximal ureteral stone on the right about 2 to 3 mm. Patient is currently pain-free. I will be writing for him to have some hydrocodone and also placing him on Cipro. Case was discussed with our on-call urologist Dr. Fang. Lab Data Attestation: I reviewed the patient's lab results. Labs: Laboratory Results - last 24 hr 01/18/22 01/18/22 01/18/22 10:28 10:28 10:35 WBC 6.5 RBC 4.07 L Hgb 12.3 L Hct 38.9 L MCV 95.6 H MCH 30.2 MCHC 31.6 L RDW Std Deviation 50.8 H RDW Coeff of Izabela 14.5 Plt Count 204 MPV 11.1 Immature Gran % (Auto) 0.500 Neut % (Auto) 68.1 Lymph % (Auto) 19.9 [place] % (Auto) 8.5 Eos % (Auto) 2.5 Baso % (Auto) 0.5 Absolute Neuts (auto) 4.4 Absolute Lymphs (auto) 1.29 Nucleated RBC % 0 Sodium 142 Potassium 3.7 Chloride 108 H Carbon Dioxide 30.0 Anion Gap 4 L BUN 13 Creatinine 0.66 L Estim Creat Clear Calc 59.37 Est GFR (MDRD) Af Amer 153 Est GFR (MDRD) Non-Af 126 BUN/Creatinine Ratio 19.8 Glucose 102 Calcium 8.2 L Urine Color Brown Urine Clarity Cloudy Urine pH 6.0 Ur Specific [place] 1.015 Urine Protein 100 H Urine Glucose (UA) Normal Urine Ketones 5 H Urine Occult Blood 250 H Urine Nitrite Positive H Urine Bilirubin 1 H Urine Urobilinogen 1 H Ur Leukocyte Esterase 100 H Urine RBC > 100 SEEN Urine WBC 10-25 SEEN Ur Squamous Epith Cells 0 SEEN Urine Bacteria 1+ Urine Mucus 0 SEEN Radiography Diagnostic Testing: Clinical Impression(s) from Imaging Studies Abdomen/Pelvis CT 01/18/22 10:15 IMPRESSION: Stable examination. No acute abnormality is seen. Electronically Signed: Papa Hammer MD at 11:22 EDT , Discharge Plan Triage Chief Complaint: Complaint ED Provider: Adam Siegel Dx/Rx/DC Orders Clinical Impression: Ureterolithiasis, Acute UTI, Hematuria Instructions: ED Hematuria, ED Kidney Stone w/ Colic Prescriptions: New hydrocodone-acetaminophen [hydrocodone-acetaminophen] 1 TABLET tablet 1 tab PO Q6H PRN PRN (Reason: Pain) 3 Days Qty: 12 RF: 0 ciprofloxacin HCl [ciprofloxacin HCl] 500 MG tablet 500 mg PO BID Qty: 14 RF: 0 No Action clopidogrel 75 mg tablet 75 mg PO DAILY RF: 0 losartan-hydrochlorothiazide 100-12.5 mg tablet 1 tab PO DAILY RF: 0 famotidine 40 mg tablet 40 mg PO DAILY RF: 0 potassium chloride [Klor-Con M20] 20 mEq tablet,ER particles/crystals 20 meq PO DAILY RF: 0 pravastatin 80 mg tablet 80 mg PO QHS RF: 0 sumatriptan succinate 6 mg/0.5 mL pen injector 6 mg subcut ONCE RF: 0 sumatriptan succinate [Imitrex] 100 mg tablet 100 mg PO ONCE PRNRF: 0 meloxicam 15 MG tablet 15 mg PO DAILY RF: 0 Primary Care Provider: Sj Pinto Chi Referrals: Jules Fang MD [STAFF PHYSICIAN] - As soon as possible Sj Pinto Chi, MD [Primary Care Provider] - Disposition Disposition: Home, Self Care
[2022-01-18 10:30] LABS: Absolute Lymphocyte Count 1.29 X10^3/uL (0.83-4.51); Absolute Neutrophil Count 4.4 X10^3/uL (2.0-7.7); Basophil# 0.03 X10^3/uL; Basophil% 0.5 % (0-1); Eosinophil# 0.16 X10^3/uL; Eosinophils% 2.5 % (0-5); Hematocrit 38.9 % (40-54); Hemoglobin 12.3 g/dL (13.0-16.5); Lymphocyte # 1.29 X10^3/ul (0.83-4.51); Lymphocyte % 19.9 % (19-41); Mean Corp Hgb Conc 31.6 g/dL (32-36); Mean Corpuscular Hgb 30.2 pg (27.0-32.0); Mean Corpuscular Volume 95.6 fL (80-94); Mean Platelet Vol. 11.1 fl (6.2-12.0); Monocyte# 0.55 X10^3/uL; Monocyte% 8.5 % (0-10); NRBC Flagged by Analyzer 0 % (0-5); Neutrophil # 4.43 X10^3/uL (2.7-7.7); Neutrophil % 68.1 % (47-70); Platelet Count 204 K/mm3 (150-450); RBC Distribution Width CV 14.5 % (11.6-14.6); RBC Distribution Width SD 50.8 fl (35.1-43.9); Red Blood Count 4.07 M/mm3 (4.6-6.2); White Blood Count 6.5 K/mm3 (4.4-11.0)
[2022-01-18 10:41] LABS: Mucous, Urine 0 SEEN /hpf (<or=2+); Squamous Epithelial Cells - UA 0 SEEN /hpf (0-5)
[2022-01-18 10:43] LABS: Anion Gap 4 (5-15); BUN 13 mg/dL (7-18); BUN/Creat Ratio 19.8 RATIO (10-20); Calcium,Total 8.2 mg/dL (8.5-10.1); Chloride 108 mmol/L (98-107); Creatinine, Serum 0.66 mg/dL (0.70-1.30); EST Glomerular Filtration Rate 126 mL/min (>60); Est Glom Filt Rate - Afr Amer 153 mL/min (>60); Estimated Creatinine Clearance 59.37 ml/min; Glucose 102 mg/dL (74-106); Potassium 3.7 mmol/L (3.5-5.1); Sodium Level 142 mmol/L (136-145)
[2022-01-18 10:51] LABS: Color, Urine Brown (Yellow); Glucose, Dipstick Normal (Normal); Ketone-Dipstick 5 mg/dl (Negative); Leukocyte Esterase-Dipstick 100 /ul (Negative); Nitrite-Dipstick Positive (Negative); Occult Blood-Urine 250 /ul (Negative); Protein-Dipstick 100 mg/dl (Negative); Specific Gravity, Urine 1.015 (1.002-1.030); Urine Clarity Cloudy (Clear); Urine Urobilinogen 1 mg/dl (Normal)
[2022-01-18 10:53] LABS: Urine Bilirubin Dipstick 1 mg/dL (Negative)
[2022-01-18 10:59] LABS: Bacteria 1+ /hpf (None Seen); Red Blood Cells-Urine > 100 SEEN /hpf (0-5); White Blood Cells 10-25 SEEN /hpf (0-5)
[2022-01-18] MEDS: 0.9% Normal Saline 1,000 ML 1000 ML IV (11:31)
[2022-01-18 11:55] VITALS: BP 128/78; PULSE 78; RESP 16; TEMP 36.9; O2SAT 98
== END 2022-01-18 11:56 | disposition home or self-care (01) ==
PROVIDERS: Emergency Provider Emergency Medicine; PCP Family Medicine Geriatric Medicine; Visit Provider Emergency Medicine
DX: N39.0 Urinary tract infection, site not specified (principal); I73.9 Peripheral vascular disease, unspecified; N20.1 Calculus of ureter; I10 Essential (primary) hypertension; Z87.442 Personal history of urinary calculi; E78.5 Hyperlipidemia, unspecified; Z79.899 Other long term (current) drug therapy; Z79.02 Long term (current) use of antithrombotics/antiplatelets; Z87.891 Personal history of nicotine dependence
CPT/HCPCS: 74176; 80048; 81001; 85025; 87086; 87088; 96360; 99283; J7030; A4216

== ENCOUNTER → 2022-03-15 | Outpatient (CLI) | payer BC, MEDICARE, SELFPAY ==
[2022-03-15 12:51] LABS: Hematocrit 39.7 % (40-54); Hemoglobin 12.6 g/dL (13.0-16.5); Mean Corp Hgb Conc 31.7 g/dL (32-36); Mean Corpuscular Hgb 31.4 pg (27.0-32.0); Mean Platelet Vol. 11.6 fl (6.2-12.0); Platelet Count 217 K/mm3 (150-450); RBC Distribution Width CV 13.2 % (11.6-14.6); RBC Distribution Width SD 48.8 fl (35.1-43.9); Red Blood Count 4.01 M/mm3 (4.6-6.2); Vitamin D,25 Hydroxy 25.1 ng/mL; White Blood Count 7.8 K/mm3 (4.4-11.0)
[2022-03-15 13:15] LABS: ALB/GLOB Ratio 1.2 RATIO (0.9-2.4); AST(SGOT) 16 U/L (15-37); Alanine Aminotransfer ALT/SGPT 18 U/L (16-61); Albumin, Serum 3.6 g/dL (3.2-5.0); Alkaline Phosphatase 85 U/L (45-117); Anion Gap 8 (5-15); BUN 22 mg/dL (7-18); BUN/Creat Ratio 28.4 RATIO (10-20); Calcium,Total 8.5 mg/dL (8.5-10.1); Chloride 109 mmol/L (98-107); Creatinine, Serum 0.78 mg/dL (0.70-1.30); EST Glomerular Filtration Rate 104 mL/min (>60); Est Glom Filt Rate - Afr Amer 126 mL/min (>60); Globulin 3.1 g/dL (2.2-4.2); Glucose 99 mg/dL (74-106); Potassium 3.9 mmol/L (3.5-5.1); Protein, Total 6.7 g/dL (6.4-8.2); Sodium Level 142 mmol/L (136-145); Thyroid Stim Hormone (TSH) 1.04 uIU/mL (0.358-3.74)
[2022-03-16 09:36] LABS: Absolute Lymphocyte Count 1.49 X10^3/uL (0.83-4.51); Absolute Neutrophil Count 5.5 X10^3/uL (2.0-7.7); Basophil# 0.04 X10^3/uL; Basophil% 0.5 % (0-1); Eosinophil# 0.25 X10^3/uL; Eosinophils% 3.2 % (0-5); Lymphocyte # 1.49 X10^3/ul (0.83-4.51); Lymphocyte % 19.1 % (19-41); Monocyte# 0.47 X10^3/uL; NRBC Flagged by Analyzer 0 % (0-5); Neutrophil # 5.51 X10^3/uL (2.7-7.7); Neutrophil % 70.8 % (47-70)
== END | disposition home or self-care (01) ==
LOC: POLAB3 11:25
PROVIDERS: PCP Family Medicine Geriatric Medicine; Visit Provider Family Medicine Geriatric Medicine
DX: I10 Essential (primary) hypertension (principal); E55.9 Vitamin D deficiency, unspecified
CPT/HCPCS: 36415; 80053; 82306; 84443; 85025; 85027

== ENCOUNTER → 2022-06-02 | Outpatient (CLI) | payer BC, MEDICARE, SELFPAY ==
--- NOTE | 2022-06-02 10:26 | ART_ITS ---
Reason For Study: Stricture of Artery Procedure A bilateral lower extremity continuous wave Doppler with analog waveform analysis and ankle brachial indexes. Left Segmental Pressures Left brachial= 151mmHg. Left posterior tibial artery = 163mmHg. Left dorsalis pedis artery = 178mmHg. Left digit = 123 mmHg. Right Segmental Pressures Right brachial= 154mmHg. Right posterior tibial artery = 187mmHg. Right dorsalis pedis artery = 186mmHg. Right digit = 113 mmHg. Indices The right ankle brachial index by the posterior tibial artery is 1.21. The right ankle brachial index by the dorsalis pedis is 1.21. The right digital-brachial index is 0.73. The left ankle brachial index by the posterior tibial artery is 1.06. The left ankle brachial index by the dorsalis pedis is 1.16. The left digital-brachial index is 0.80. VL/Ankle Brachial Index Interpretation Summary No evidence occlussive disease at rest and IVAN 1.21/1.16 and DBI 0.73/0.8. Ordering Physician: Sterling Gardner Referring Physician: Sj Pinto Chi Performed By: Dayna Adames RDCS/RVT
--- NOTE | 2022-06-02 10:26 | AAVD_ITS ---
Reason For Study: Stricture of Artery Aorta Measurements Aorta Doppler Measurements Proximal aorta measures2.09cm x 2.06cm. in cross- Peak systolic flow velocities within the proximal sectional axis. aorta measure 109 cm/sec. Proximal aorta measures1.83cm. in longitudinal Peak systolic flow velocities within the mid aorta axis. measure 103 cm/sec. Mid aorta measures1.83cm x 1.76cm. in cross- Peak systolic flow velocities within the distal sectional axis. aorta measure 105 cm/sec. Mid aorta measures1.60cm. in longitudinal axis. Distal aorta measures1.61cm x 1.55cm. in cross- sectional axis. Distal aorta measures1.53cm. in longitudinal axis. Left Iliac Artery Left iliac artery measures 0.84cm x 0.75 cm. in the cross-sectional axis. Left iliac artery measures 0.78 cm. in the longitudinal axis. Peak systolic velocity in the left iliac artery measures 189 cm/sec. Right Iliac Artery Right iliac artery measures 1.05cm x 0.96 cm. in the cross-sectional axis. Right iliac artery measures 0.97 cm. in the longitudinal axis. Peak systolic velocity in the right iliac artery measures 158 cm/sec. Procedure Aorta IVC Iliac vasculature or bypass grafts [id number]. Exam performed in department. VL/Abd Aortic/IVC Duplex scan Interpretation Summary No evidence of aortoiliac stenosis or aneurysm. Ordering Physician: Sterling Gardner Referring Physician: Sj Pinto Chi Performed By: Dayna Adames, BAILEY, RVT
== END | disposition home or self-care (01) ==
LOC: CVS 09:38
PROVIDERS: PCP Family Medicine Geriatric Medicine; Visit Provider Surgery Vascular Surgery
DX: I74.09 Other arterial embolism and thrombosis of abdominal aorta (principal); I77.1 Stricture of artery; I70.213 Atherosclerosis of native arteries of extremities with intermittent claudication, bilateral legs; M79.605 Pain in left leg; E78.00 Pure hypercholesterolemia, unspecified; Z87.19 Personal history of other diseases of the digestive system
CPT/HCPCS: 93922; 93978

== ENCOUNTER → 2022-06-13 | Outpatient (CLI) | payer MEDICARE, BC, SELFPAY ==
[2022-06-13 12:36] LABS: Absolute Lymphocyte Count 1.29 X10^3/uL (0.83-4.51); Absolute Neutrophil Count 4.4 X10^3/uL (2.0-7.7); Basophil# 0.03 X10^3/uL; Basophil% 0.5 % (0-1); Eosinophil# 0.36 X10^3/uL; Eosinophils% 5.4 % (0-5); Hematocrit 37.8 % (40-54); Hemoglobin 12.4 g/dL (13.0-16.5); Lymphocyte # 1.29 X10^3/ul (0.83-4.51); Lymphocyte % 19.4 % (19-41); Mean Corp Hgb Conc 32.8 g/dL (32-36); Mean Corpuscular Hgb 31.7 pg (27.0-32.0); Mean Corpuscular Volume 96.7 fL (80-94); Mean Platelet Vol. 11.7 fl (6.2-12.0); Monocyte# 0.52 X10^3/uL; Monocyte% 7.8 % (0-10); NRBC Flagged by Analyzer 0 % (0-5); Neutrophil # 4.41 X10^3/uL (2.7-7.7); Neutrophil % 66.4 % (47-70); Platelet Count 214 K/mm3 (150-450); RBC Distribution Width CV 13.8 % (11.6-14.6); RBC Distribution Width SD 49.5 fl (35.1-43.9); Red Blood Count 3.91 M/mm3 (4.6-6.2); White Blood Count 6.6 K/mm3 (4.4-11.0)
[2022-06-13 12:48] LABS: Vitamin D,25 Hydroxy 31.5 ng/mL
[2022-06-13 12:55] LABS: AST(SGOT) 19 U/L (15-37); Alanine Aminotransfer ALT/SGPT 27 U/L (16-61); Albumin, Serum 3.3 g/dL (3.2-5.0); Alkaline Phosphatase 105 U/L (45-117); Anion Gap 6 (5-15); BUN 17 mg/dL (7-18); Calcium,Total 8.1 mg/dL (8.5-10.1); Chloride 105 mmol/L (98-107); Creatinine, Serum 0.74 mg/dL (0.70-1.30); EST Glomerular Filtration Rate 110 mL/min (>60); Est Glom Filt Rate - Afr Amer 134 mL/min (>60); Globulin 3.2 g/dL (2.2-4.2); Glucose 110 mg/dL (74-106); Potassium 3.7 mmol/L (3.5-5.1); Protein, Total 6.5 g/dL (6.4-8.2); Sodium Level 140 mmol/L (136-145); Thyroid Stim Hormone (TSH) 1.03 uIU/mL (0.358-3.74)
== END | disposition home or self-care (01) ==
PROVIDERS: PCP Family Medicine Geriatric Medicine; Visit Provider Family Medicine Geriatric Medicine
DX: I10 Essential (primary) hypertension (principal); E55.9 Vitamin D deficiency, unspecified
CPT/HCPCS: 36415; 80053; 82306; 84443; 85025

== ENCOUNTER → 2022-11-13 | Outpatient (CLI) | payer MEDICARE, SELFPAY ==
--- NOTE | 2022-11-13 16:35 | RAD_ITS ---
INDICATION: bilateral shoulder pain EXAMINATION/TECHNIQUE: X-RAY - RIGHT XR Shoulder 4 VIEWS COMPARISON: None. FINDINGS: SOFT TISSUES: No soft tissue swelling or gas. No radiopaque foreign body. BONES/JOINTS: No acute fracture or subluxation.. Normal alignment. Preservation of the joint space.. No sclerotic or destructive changes observed. RAD/Shoulder min 2 Views IMPRESSION: No acute bony injury. Electronically Signed: Car Dumont DO at 23:56 EST ,
--- NOTE | 2022-11-13 16:35 | RAD_ITS ---
INDICATION: BILATERAL SHOULDER PAIN EXAMINATION/TECHNIQUE: X-RAY - LEFT XR Shoulder 4 VIEWS COMPARISON: None. FINDINGS: SOFT TISSUES: No soft tissue swelling or gas. No radiopaque foreign body. BONES/JOINTS: No acute fracture or subluxation.. Normal alignment. Preservation of the joint space.. No sclerotic or destructive changes observed. RAD/Shoulder min 2 Views IMPRESSION: Negative. Electronically Signed: Car Dumont DO at 17:44 EST ,
== END | disposition home or self-care (01) ==
PROVIDERS: PCP Family Medicine Geriatric Medicine; Visit Provider Family Medicine Geriatric Medicine
DX: M25.511 Pain in right shoulder (principal)
CPT/HCPCS: 73030

== ENCOUNTER → 2023-02-05 | Outpatient (CLI) | payer MEDICARE, SELFPAY ==
[2023-02-05 17:11] LABS: Absolute Lymphocyte Count 1.89 X10^3/uL (0.83-4.51); Absolute Neutrophil Count 4.4 X10^3/uL (2.0-7.7); Basophil# 0.08 X10^3/uL; Basophil% 1.1 % (0-1); Eosinophil# 0.29 X10^3/uL; Eosinophils% 3.8 % (0-5); Hematocrit 47.2 % (40-54); Hemoglobin 15.2 g/dL (13.0-16.5); Lymphocyte # 1.89 X10^3/ul (0.83-4.51); Mean Corp Hgb Conc 32.2 g/dL (32-36); Mean Corpuscular Hgb 28.9 pg (27.0-32.0); Mean Corpuscular Volume 89.7 fL (80-94); Mean Platelet Vol. 11.3 fl (6.2-12.0); Monocyte# 0.86 X10^3/uL; Monocyte% 11.4 % (0-10); NRBC Flagged by Analyzer 0 % (0-5); Neutrophil # 4.42 X10^3/uL (2.7-7.7); Neutrophil % 58.4 % (47-70); Platelet Count 166 K/mm3 (150-450); RBC Distribution Width CV 14.2 % (11.6-14.6); RBC Distribution Width SD 46.6 fl (35.1-43.9); Red Blood Count 5.26 M/mm3 (4.6-6.2); White Blood Count 7.6 K/mm3 (4.4-11.0)
[2023-02-05 18:03] LABS: Vitamin D,25 Hydroxy 53.7 ng/mL
[2023-02-05 18:16] LABS: ALB/GLOB Ratio 1.1 RATIO (0.9-2.4); AST(SGOT) 22 U/L (15-37); Alanine Aminotransfer ALT/SGPT 36 U/L (16-61); Albumin, Serum 3.9 g/dL (3.2-5.0); Alkaline Phosphatase 63 U/L (45-117); Anion Gap 10 (5-15); BUN 32 mg/dL (7-18); BUN/Creat Ratio 25.2 RATIO (10-20); Calcium,Total 9.1 mg/dL (8.5-10.1); Chloride 108 mmol/L (98-107); Creatinine, Serum 1.27 mg/dL (0.70-1.30); EST Glomerular Filtration Rate 59 mL/min (>60); Est Glom Filt Rate - Afr Amer 71 mL/min (>60); Globulin 3.4 g/dL (2.2-4.2); Glucose 79 mg/dL (74-106); Potassium 3.8 mmol/L (3.5-5.1); Protein, Total 7.3 g/dL (6.4-8.2); Sodium Level 142 mmol/L (136-145)
== END | disposition home or self-care (01) ==
LOC: POLAB3 13:38
PROVIDERS: PCP Family Medicine Geriatric Medicine; Visit Provider Family Medicine Geriatric Medicine
DX: R53.83 Other fatigue (principal); E55.9 Vitamin D deficiency, unspecified
CPT/HCPCS: 36415; 80053; 82306; 84443; 85025

== ENCOUNTER 2023-02-26 13:34 | Emergency (ER) | payer MEDICARE, SELFPAY ==
[2023-02-26 13:35] VITALS: BP 193/79; PULSE 57; RESP 16; TEMP 36.4; O2SAT 98; BMI 25.3
--- NOTE | 2023-02-26 13:41 | RAD_ITS ---
STUDY: X-RAY - UNILATERAL RIBS ( LEFT ) WITH CHEST REASON FOR EXAM: Male, 72 years old. Fall TECHNIQUE - RIBS: 4 view(s) of the ribs. TECHNIQUE - CHEST: Single PA view of the chest. COMPARISON: Comparison is made with prior radiographs dated September 07, 2021. FINDINGS - RIBS: Nondisplaced fracture along the anterior lateral aspect of the left sixth and seventh ribs. FINDINGS - CHEST: The lungs are clear and expanded. There is no demonstrated pleural abnormality. Normal size heart. Normal mediastinum and jacinto. Normal visualized pulmonary arteries. There is atherosclerotic calcification of the aortic arch with tortuosity. There are diffuse degenerative changes of the visualized thoracic spine. Prior fusion of the lower cervical spine. There is no demonstrated abnormality of the visualized soft tissue structures of the upper abdomen. RAD/Ribs Uni Min 3V w/PA Chest IMPRESSION: RIBS: Nondisplaced fractures of the left sixth and seventh ribs anterolaterally. CHEST: Normal x-ray examination of the chest. Electronically Signed: Papa Hammer MD at 14:30 EDT ,
--- NOTE | 2023-02-26 13:41 | RAD_ITS ---
STUDY: X-RAY - LEFT SHOULDER REASON FOR EXAM: Male, 72 years old. Fall TECHNIQUE: 4 view(s) of the shoulder. COMPARISON: None. FINDINGS: There is mild degenerative arthrosis of the glenohumeral articulation. Normal acromioclavicular joint. Normal acromion. Normal humeral head and visualized proximal humerus. The soft tissue structures are unremarkable. Normal visualized pulmonary apex. RAD/Shoulder min 2 Views IMPRESSION: Degenerative changes of the glenohumeral joint. Electronically Signed: Papa Hammer MD at 14:30 EDT ,
--- NOTE | 2023-02-26 14:29 | EDS_ITS ---
HPI HPI - Fall History of Present Illness Chief Complaint: Fall PFSH PFSH Medical History Arthritis Chest pain Essential hypertension Hydronephrosis with obstructing calculus Hyperlipidemia Kidney stones Peripheral vascular disease of extremity with claudication Right bundle branch block (RBBB) Ureteral calculus, right Home Medications meloxicam 15 mg tablet 15 mg PO DAILY ARTHRITIS 09/26/16 [History Last Taken 05/08/17 08:00 15 MG] clopidogrel 75 mg tablet 75 mg PO DAILY 10/14/21 [History Last Taken Unknown] famotidine 40 mg tablet 40 mg PO DAILY 10/14/21 [History Last Taken Unknown] losartan 100 mg-hydrochlorothiazide 12.5 mg tablet 1 tab PO DAILY 10/14/21 [History Last Taken Unknown] potassium chloride 20 mEq tablet,extended release(part/cryst) (Klor-Con M) 20 meq PO DAILY 10/14/21 [History Last Taken Unknown] pravastatin 80 mg tablet 80 mg PO QHS 10/14/21 [History Last Taken Unknown] sumatriptan succinate 100 mg tablet (Imitrex) 100 mg PO ONCE PRN 10/14/21 [History Last Taken Unknown] sumatriptan succinate 6 mg/0.5 mL subcutaneous pen injector 6 mg subcut ONCE 10/14/21 [History Last Taken Unknown] ciprofloxacin HCl 500 mg tablet 500 mg PO BID #14 TABLETS 01/18/22 [Rx Last Taken Unknown] hydrocodone-acetaminophen 5-325mg 5mg-325mg 1 tab PO Q6H PRN PRN Pain 3 days #12 TABLETS 01/18/22 [Rx Last Taken Unknown] oxycodone-acetaminophen 5 mg-325 mg tablet (Percocet) 1 tab PO Q6H PRN pain 3 days #12 tabs 02/26/23 [Rx Last Taken Unknown] Allergy/AdvReac Type Severity Reaction Status Date / Time codeine Allergy AFFECTED Verified 02/26/23 13:37 BREATHING prednisone AdvReac Other Verified 02/26/23 13:37 Family History Father Hyperlipidemia Surgical History H/O arthroscopic knee surgery H/O excision of lamina of cervical vertebra for decompression of spinal cord History of appendectomy History of colonoscopy History of hemorrhoidectomy History of left knee replacement History of lumbar laminectomy History of repair of rotator cuff History of tonsillectomy Social History Smoking Status: Former smoker quit date: 09/17/81 pack-years: 19 EXAM Physical Exam Const Vital Signs: 02/26/23 13:35 02/26/23 14:21 Temperature 97.6 F L Temperature Source Temporal Pulse Rate 57 L Respiratory Rate 16 Respiratory Effort Normal Respiratory Depth Normal Respiratory Pattern Normal Blood Pressure 193/79 H Blood Pressure Mean 117 Pulse Ox 98 Oxygen Delivery Method Room Air Room Air MDM MDM MDM Narrative Medical decision making narrative: HISTORY OF PRESENT ILLNESS: 72-year-old male here with fall. He states He suffered mechanical fall from standing 2 days ago denies any syncope, vomiting. He notes pain is constant, severe worse with movement. Denies prior surgery to shoulder or ribs. REVIEW OF SYSTEMS: Pertinent positives: Shoulder pain, rib pain Pertinent negatives: Syncope, loss of consciousness, chest pain PHYSICAL EXAM: Nursing triage notes reviewed, Vital signs reviewed Primary Survey Airway: Intact Breathing: Bilateral breath sounds Circulation: Palpable bilateral femorals, Palpable bilateral radial, Palpable bilateral DP and Palpable bilateral PT Disability / Spine precautions GCS Score: Eye Openin Verbal Response: 5 Motor Response: 6 Secondary Survey Constitutional: Please see MDM Head: Atraumatic, Midface stable, NO jaw malocclusion, No Cephalohematoma, and No Lacerations noted Eye: Pupils equal round and reactive to light, Extraocular muscles intact and No periorbital ecchymosis or stepoff, no evidence of entrapment ENT: Oropharynx clear, no lacerations, no hemotympanum, no raccoon eyes or thompson sign Cervical spine / Neck: No cervical spine bony tenderness, crepitance, or stepoff deformity Trachea midline Lungs: Clear to auscultation, No asymmetric rise and No crepitus, no flail chest Cardiac: Regular rate and rhythm and No murmurs Abdomen: Soft, Nontender and No rebound Pelvis: Pelvis stable to compression : No evidence of genital injury Back: No midline bony tenderness to thoracic/lumbar/sacral spines Neuro: At baseline, intact strength and sensation in bilateral upper and lower extremities. 2+ patellar reflexes bilaterally. Extremities: NO gross Deformities, TTP over left shoulder, Psych: Normal affect Nursing triage notes reviewed, Vital signs reviewed MEDICAL DECISION MAKING: Chief Complaint: Shoulder pain, rib pain External records reviewed: X-ray of the right shoulder from 2022 shows no acute abnormalities Factors affecting care: Hypertension, hyperlipidemia Social determinants of health: Elderly History obtained from others: The patient's Consults: None ALL IMAGES (IF OBTAINED) HAVE BEEN PERSONALLY REVIEWED AND INTERPRETED BY MYSELF. MDM Narrative: I considered the following differential diagnosis: Traumatic injury of the shoulder, ribs I obtained images. X-rays were personally reviewed by myself. X-ray shows no evidence of shoulder dislocation or fracture. X-ray of the chest shows no evidence of pulmonary contusion, pneumothorax. There is evidence of 6 rib fracture. I discussed trauma surger consultation and evaluation given multipe rib fr actures, advanced age, Pt and . Patient refused trauma surgery evaluation at this point time. He states he feels comfortable going home with a symptom spirometer and pain medication. I instructed the patient on strict return precautions and follow-up instructions. The patient and/or family, caregivers express understanding. The patient and/or family, caregivers agrees with the plan. Total critical care time today provided was at least 0 minutes. This excludes separately billable procedures. Critical care time (if documented) is secondary to the patient having high probability of clinically significant/life threatening deterioration in the patient's condition which required my urgent intervention. Shared decision making: I will have a discussion with the patient and or visitors regarding risk/benefits of further testing or admission. They will be made aware of of the risk/benefits inherent in this decision they will be given the opportunity to voice understanding. Radiography Diagnostic Testing: Clinical Impression(s) from Imaging Studies Ribs w/Chest X-Ray 02/26/23 13:41 IMPRESSION: RIBS: Nondisplaced fractures of the left sixth and seventh ribs anterolaterally. CHEST: Normal x-ray examination of the chest. Electronically Signed: Papa Hammer MD at 14:30 EDT , Shoulder X-Ray 02/26/23 13:41 IMPRESSION: Degenerative changes of the glenohumeral joint. Electronically Signed: Papa Hammer MD at 14:30 EDT , I personally reviewed the patient's x-rays. X-ray of the chest shows no evidence of pneumothorax, pneumonia, there is evidence of a left sixth rib fracture. X-ray of the left shoulder shows no evidence of fracture dislocation Discharge Plan Triage Chief Complaint: Fall ED Provider: Fraknie Jones Dx/Rx/DC Orders Clinical Impression: Fracture of rib, Contusion of shoulder Instructions: Bone Contusion, ED Rib Fracture Prescriptions: New oxycodone-acetaminophen [Percocet] 5-325 mg tablet 1 tab PO Q6H PRN (Reason: pain) 3 Days Qty: 12 0RF No Action clopidogrel 75 mg tablet 75 mg PO DAILY losartan-hydrochlorothiazide 100-12.5 mg tablet 1 tab PO DAILY famotidine 40 mg tablet 40 mg PO DAILY potassium chloride [Klor-Con M20] 20 mEq tablet,ER particles/crystals 20 meq PO DAILY pravastatin 80 mg tablet 80 mg PO QHS sumatriptan succinate 6 mg/0.5 mL pen injector 6 mg subcut ONCE Label Comments: INJECT 6 Milligrams subcutaneously once per day for 30 days NEEDED for headache sumatriptan succinate [Imitrex] 100 mg tablet 100 mg PO ONCE PRN meloxicam 15 MG tablet 15 mg PO DAILY hydrocodone-acetaminophen [hydrocodone-acetaminophen] 1 TABLET tablet 1 tab PO Q6H PRN PRN (Reason: Pain) 3 Days Qty: 12 0RF ciprofloxacin HCl [ciprofloxacin HCl] 500 MG tablet 500 mg PO BID Qty: 14 0RF Primary Care Provider: Sj Pinto Chi Referrals: Sj Pinto Chi, MD [Primary Care Provider] -
[2023-02-26] MEDS: Oxycodone/Apap 5/325 Tablet PO (15:00)
[2023-02-26 16:00] VITALS: BP 144/64; PULSE 78; RESP 14; TEMP 37.2; O2SAT 100
== END 2023-02-26 16:01 | disposition home or self-care (01) ==
PROVIDERS: Emergency Provider Emergency Medicine; PCP Family Medicine Geriatric Medicine; Visit Provider Emergency Medicine
DX: S22.39XA Fracture of one rib, unspecified side, initial encounter for closed fracture (principal); Z87.891 Personal history of nicotine dependence; E78.5 Hyperlipidemia, unspecified; I10 Essential (primary) hypertension; W19.XXXA Unspecified fall, initial encounter; S40.012A Contusion of left shoulder, initial encounter; M19.90 Unspecified osteoarthritis, unspecified site; Z79.899 Other long term (current) drug therapy; Z79.02 Long term (current) use of antithrombotics/antiplatelets; Z90.49 Acquired absence of other specified parts of digestive tract; Z96.652 Presence of left artificial knee joint
CPT/HCPCS: 71101; 73030; 99283

== ENCOUNTER → 2023-03-01 | Outpatient (CLI) | payer MEDICARE, SELFPAY ==
--- NOTE | 2023-03-01 18:59 | CT_ITS ---
INDICATION: Left-sided sternal pain. EXAMINATION: CT CHEST WITHOUT CONTRAST - CT Chest W/O Contrast Injection TECHNIQUE: Helically acquired images were obtained of the chest. A radiation dose optimization technique was used for this scan. IV Contrast dosage and agent: None. COMPARISON: Chest, March 11, 2018. FINDINGS: LUNGS, PLEURA AND LARGE AIRWAYS: No masses, consolidation, or edema. Is a small left pleural effusion with subsegmental atelectasis. No pneumothorax. THYROID: No thyroid lesions. HEART AND PERICARDIUM: Heart size is normal. No pericardial effusion. CORONARY ARTERIES: Coronary artery calcification are present VESSELS: Atherosclerotic changes of the thoracic aorta without aneurysm. MEDIASTINUM AND SANDRA: No mediastinal or hilar adenopathy. Esophagus is unremarkable. No hiatal hernia. UPPER ABDOMEN: No acute pathology. BONES: Degenerative changes of the thoracic spine. CT/Chest without Contrast IMPRESSION: 1. Small left pleural effusion without pulmonary infiltrate or mass. 2. Atherosclerotic changes of coronary arteries and thoracic aorta. Electronically Signed: Rigo Abbasi DO at 22:43 EDT ,
== END | disposition home or self-care (01) ==
LOC: CT 18:56
PROVIDERS: PCP Family Medicine Geriatric Medicine; Visit Provider Family Medicine Geriatric Medicine
DX: S22.20XA Unspecified fracture of sternum, initial encounter for closed fracture (principal)
CPT/HCPCS: 71250

== ENCOUNTER 2023-03-19 13:00 | Outpatient (RCR) | payer MEDICARE, SELFPAY ==
--- NOTE | 2023-02-21 15:08 | HP.PTEVAL ---
Patient's Visit Information BREANNA HERRING is a 72 year old M referred to Physical Therapy by Dr. Sj iPnto MD with a diagnosis of Gait difficulty. Date of Evaluation: 02/21/23 Physical Therapist: Shabbir Garcia, BRADLEYT, OCS, CSCS - Visit Plan Frequency: 2x /Week Duration: 4-6 Weeks Plan: 2x/week for 4-6 weeks... please teach ec and forward weight shift funcitonal balance ex as well as home based general strength with pics that patient can eventually do at home, gait training for function. - Subjective Feels unsteady more as time goes by. Gradually but last few months much worse. Has fallen a time or two weekly. Falls walking in the lawn or living room just losing balance. Has cane and walker and uses them 75% of time but did not bring them today. 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 Head spins sometimes but infrequently and not related to falling. Sleep Is Ok. Pain is daily in back and neck and has morphine pain pump and will see Basali today. Not employed. Spends day working in yard and washing car. Takes a long time and has to be careful due to pain and frequent rests. Lives with in two story and does steps regualrly taking time and with railing. Hobbies: not anymore, fishing but doesn;t feel like it. Regular exercise: loosens up arms and a few squats holding on to something.Some back exercises on back. - Pain LB Pain Intensity (Out of 10): 4 Pain Intensity Range: 0, 10 - Objective Walks hunched slightly and stiff in knees and hips, very little weight shift and short slow steps but I without AD. VOR walking is easy. Back ROM limited in extension to neutral, SB mod limited, flexion is mod limited. hip aROM is WFL but stiff especially into extension and only to neutral and not even there in gait pattern. knee and ankle AROM WFL. reflexes 0/3 patella and achilles. Sensation at deficit to gross light touch B feet anad ankles L >R. Pt stands with weight through heels and avoids FW weight shift. - Balance/Special Test Scores Functional Gait Assessment Score: 23 % Disability: 23.3400 CATSIB Score (Max score 120 seconds): 95 Lower Extremity Functional Score: 12 - Goals Goal 1:: Pt I in appropirate home based ec ex for balance, FW weight shfiting ex and general strength Goal Time Frame: 4-6 Weeks Goal 2:: Pt feel 50% improved balance and confidence with gait Goal Time Frame: 4-6 Weeks Goal 3:: FGA to reduce fall risk Goal Time Frame: 4-6 Weeks Goal 4:: LEFS score 35 Goal Time Frame: 4-6 Weeks - Rehabilitation Potential Physical Therapy Diagnosis: Imbalance likely neuropathic in nature. Rehabilitation Potential: Fair - Anticipated Interventions Patient/Client Instruction: Educate patient on: Condition, Plan of Care, Risk Factors For the Purpose of:: To improve gait and locomotor functions, To improve safety Therapeutic Exercise to Include: Strength training, Balance training, Flexibilty training For the Purpose of:: To improve gait and locomotor functions, To improve health of tissue, To improve balance, To improve safety with gait Thank you for the opportunity to evaluate your patient. For Medicare and Medicare HMO plans, please review the plan of care and approve it. It will need to be FAXED BACK to us at [phone] for Medicare purposes. For Medicare only, by signing this I certify the plan of care. Please let me know if there are questions or concerns regarding this plan of care. Physician Signature: Date:
--- NOTE | 2023-05-28 07:43 | HP.PT.NRP ---
Patient Information Patient Information: BREANNA HERRING was seen in my office for initial evaluation on 02/21/23. The following Plan of Care was established for this patient: POC Established Initial Frequency: 2x /Week Initial Duration: 4-6 Weeks Anticipated Interventions Patient/Client Instruction: Educate patient on: Condition, Plan of Care and Risk Factors For the Purpose of:: To improve gait and locomotor functions and To improve safety Therapeutic Exercise to Include: Strength training, Balance training and Flexibilty training For the Purpose of:: To improve gait and locomotor functions, To improve health of tissue, To improve balance and To improve safety with gait Last Seen Last Seen: This patient was last seen in our office 03/19/23. Pertinent comments regarding their Physical therapy will appear below: Pt seen 3 visits of POC and cancelled his last visit. He did not schedule or attend any further visits. at this point, it has been over two months and I will disconitnue due to nonattendance At this point I will be discontinuing this patient from physical therapy. I would be happy to see this patient again in the future if found appropriate by the physician. Thank you! Shabbir Garcia, DPT, OCS, CSCS Balance/Gait/Functional tests Balance/Special Test Scores Functional Gait Assessment Score: 23 % Disability: 23.3400 CATSIB Score (Max score 120 seconds): 95 Lower Extremity Functional Score: 12
== END 2023-03-19 19:00 | disposition home or self-care (01) ==
LOC: PT 13:00
PROVIDERS: PCP Family Medicine Geriatric Medicine; Referring Provider Family Medicine Geriatric Medicine; Visit Provider Family Medicine Geriatric Medicine
DX: R26.9 Unspecified abnormalities of gait and mobility (principal)
CPT/HCPCS: 97110; 97162

== ENCOUNTER 2023-05-03 07:02 | Inpatient (IN) | payer MEDICARE, SELFPAY ==
[2023-05-03] VITALS (70 sets, daily range): BP systolic 120–199; BP diastolic 54–162; PULSE 63–116; RESP 11–34; TEMP 36–36.6; O2SAT 70–100; BMI 24.1
--- NOTE | 2023-05-03 07:28 | CT_ITS ---
STUDY: CT BRAIN WITHOUT CONTRAST REASON FOR EXAM: Male, 72 years old. Altered LOC, headache, vertigo. RADIATION DOSAGE (If Supplied By Facility): CTDIvol = ( 44.99 ) mGy, DLP = ( 863.60 ) mGycm TECHNIQUE: Transaxial CT imaging of the brain was performed without administration of intravenous contrast material. Individualized dose optimization techniques were used for this CT. COMPARISON: Comparison is made with prior study dated June 14, 2029. FINDINGS: Normal soft tissue structures. Normal calvarium. There is mild cerebral atrophy with widening of the extra-axial spaces and ventricular dilatation. There are areas of decreased attenuation within the white matter tracts of the supratentorial brain, consistent with microvascular disease changes. Normal basal ganglia and thalami. Normal brainstem. Normal cerebellum. There is no intracranial hemorrhage. There are no findings of an acute ischemic infarction. Atherosclerotic calcification of the cavernous portions of the internal carotid arteries and vertebral arteries. Normal visualized paranasal sinuses. CT/Brain/Head without Contrast IMPRESSION: Chronic involutional changes of the brain. Electronically Signed: Papa Hammer MD at 8:56 EDT ,
--- NOTE | 2023-05-03 07:29 | EKG12_ITS ---
Test Reason : GENERAL Blood Pressure : / mmHG Vent. Rate : 076 BPM Atrial Rate : 076 BPM P-R Int : 174 ms QRS Dur : 150 ms QT Int : 466 ms P-R-T Axes : 032 039 027 degrees QTc Int : 524 ms Normal sinus rhythm Right bundle branch block Cannot rule out Inferior infarct , age undetermined Abnormal ECG Confirmed by JODIE ROSENBERG ([id number]), bus and sys integration senior manager ANCELMO SAEED ([id number]) on 05/08/2023 8:31:22 AM Referred By: Confirmed By:JODIE ROSENBERG
--- NOTE | 2023-05-03 07:30 | EX.ED.DYSGE1 ---
HPI History of Present Illness Chief Complaint: Nausea/Vomiting Informant: patient, spouse/S.O. and EMS Narrative Narrative: Patient has a history of chronic neck and low back pain, and he has a morphine pain pump in his right lower quadrant. Yesterday he had the morphine replaced with Dilaudid. His pain management doctor is Dr. Soni. Since yesterday evening, significant other states he has been lethargic, he started vomiting this morning and has been unable to stop, asked her to call EMS but has basically been lethargic and not talking. He was hypoxic at 75% when EMS initially dropped him off here, but it was transient. The patient is able to respond to some questions but not all. He is able to move everything, at 1 point he seems to admit to a headache but difficult to tell. He denies having any chest pain, shortness of breath, abdominal pain just nausea. He is holding an emesis basin. [facility] Medical History Arthritis Chest pain Essential hypertension Hydronephrosis with obstructing calculus Hyperlipidemia Kidney stones Peripheral vascular disease of extremity with claudication Right bundle branch block (RBBB) Ureteral calculus, right Home Medications meloxicam 15 mg tablet 15 mg PO DAILY ARTHRITIS 09/26/16 [History Last Taken 05/08/17 08:00 15 MG] clopidogrel 75 mg tablet 75 mg PO DAILY 10/14/21 [History Last Taken Unknown] famotidine 40 mg tablet 40 mg PO DAILY 10/14/21 [History Last Taken Unknown] losartan 100 mg-hydrochlorothiazide 12.5 mg tablet 1 tab PO DAILY 10/14/21 [History Last Taken Unknown] potassium chloride 20 mEq tablet,extended release(part/cryst) (Klor-Con M) 20 meq PO DAILY 10/14/21 [History Last Taken Unknown] pravastatin 80 mg tablet 80 mg PO QHS 10/14/21 [History Last Taken Unknown] sumatriptan succinate 100 mg tablet (Imitrex) 100 mg PO ONCE PRN 10/14/21 [History Last Taken Unknown] sumatriptan succinate 6 mg/0.5 mL subcutaneous pen injector 6 mg subcut ONCE 10/14/21 [History Last Taken Unknown] ciprofloxacin HCl 500 mg tablet 500 mg PO BID #14 TABLETS 01/18/22 [Rx Last Taken Unknown] hydrocodone-acetaminophen 5-325mg 5mg-325mg 1 tab PO Q6H PRN PRN Pain 3 days #12 TABLETS 01/18/22 [Rx Last Taken Unknown] oxycodone-acetaminophen 5 mg-325 mg tablet (Percocet) 1 tab PO Q6H PRN pain 3 days #12 tabs 02/26/23 [Rx Last Taken Unknown] Allergy/AdvReac Type Severity Reaction Status Date / Time codeine Allergy AFFECTED Verified 05/03/23 07:03 BREATHING prednisone AdvReac Other Verified 05/03/23 07:03 Family History Father Hyperlipidemia Surgical History H/O arthroscopic knee surgery H/O excision of lamina of cervical vertebra for decompression of spinal cord History of appendectomy History of colonoscopy History of hemorrhoidectomy History of left knee replacement History of lumbar laminectomy History of repair of rotator cuff History of tonsillectomy Social History Smoking Status: Former smoker quit date: 09/17/81 pack-years: 19 ROS ROS ED Review of Systems ROS Unobtainable: due to mental status Cardiovascular Cardiovascular: Denies chest pain Respiratory/Chest Respiratory/Chest: Denies dyspnea Gastrointestinal Gastrointestinal: Reports nausea and vomiting; Denies abdominal pain Neurologic Neurologic: Reports headache(s) EXAM Physical Exam Const Vital Signs: 05/03/23 07:03 05/03/23 07:45 05/03/23 07:23 Temperature 97.6 F L Temperature Source Temporal Pulse Rate 87 97 Respiratory Rate 14 25 H Blood Pressure 141/88 H Blood Pressure Mean 105 Pulse Ox 100 70 95 Oxygen Delivery Method Room Air Room Air 05/03/23 07:30 05/03/23 07:40 05/03/23 07:45 Temperature Temperature Source Pulse Rate 82 85 78 Respiratory Rate 21 H 17 24 H Blood Pressure 171/74 H 170/79 H Blood Pressure Mean 100 104 Pulse Ox 94 92 100 Oxygen Delivery Method 05/03/23 07:50 05/03/23 08:00 05/03/23 08:10 Temperature Temperature Source Pulse Rate 78 87 94 Respiratory Rate 20 H 15 11 L Blood Pressure 168/80 H Blood Pressure Mean 105 Pulse Ox 100 100 100 Oxygen Delivery Method 05/03/23 08:15 05/03/23 08:21 05/03/23 08:30 Temperature Temperature Source Pulse Rate 79 116 H Respiratory Rate 15 27 H Blood Pressure 170/83 H Blood Pressure Mean 108 Pulse Ox 100 Oxygen Delivery Method 05/03/23 08:40 05/03/23 08:50 05/03/23 09:00 Temperature Temperature Source Pulse Rate 102 H 103 H 99 Respiratory Rate 24 H 19 H 22 H Blood Pressure Blood Pressure Mean Pulse Ox 100 100 Oxygen Delivery Method 05/03/23 09:10 05/03/23 09:20 05/03/23 09:30 Temperature Temperature Source Pulse Rate 90 86 Respiratory Rate 16 23 H 23 H Blood Pressure Blood Pressure Mean Pulse Ox 99 99 100 Oxygen Delivery Method 05/03/23 09:31 05/03/23 09:40 05/03/23 09:45 Temperature Temperature Source Pulse Rate 81 77 79 Respiratory Rate 19 H 21 H 17 Blood Pressure 168/71 H 199/162 H Blood Pressure Mean 94 173 Pulse Ox 97 100 100 Oxygen Delivery Method 05/03/23 09:50 05/03/23 10:00 05/03/23 10:10 Temperature Temperature Source Pulse Rate 77 77 66 Respiratory Rate 18 20 H 15 Blood Pressure 151/95 H Blood Pressure Mean 108 Pulse Ox 100 100 100 Oxygen Delivery Method 05/03/23 10:15 05/03/23 10:20 05/03/23 10:30 Temperature Temperature Source Pulse Rate 63 77 79 Respiratory Rate 15 16 18 Blood Pressure 151/70 H 162/74 H Blood Pressure Mean 93 100 Pulse Ox 99 100 100 Oxygen Delivery Method 05/03/23 10:40 05/03/23 10:45 05/03/23 10:50 Temperature Temperature Source Pulse Rate 87 84 88 Respiratory Rate 19 H 22 H 13 Blood Pressure 157/74 H Blood Pressure Mean 98 Pulse Ox 99 99 99 Oxygen Delivery Method 05/03/23 11:00 05/03/23 11:10 05/03/23 11:15 Temperature Temperature Source Pulse Rate 96 91 88 Respiratory Rate 24 H 22 H 20 H Blood Pressure 159/74 H 144/63 H Blood Pressure Mean 98 87 Pulse Ox 97 92 99 Oxygen Delivery Method 05/03/23 11:20 05/03/23 11:30 05/03/23 11:40 Temperature Temperature Source Pulse Rate 85 90 85 Respiratory Rate 19 H 21 H 22 H Blood Pressure 143/69 H Blood Pressure Mean 90 Pulse Ox 99 99 98 Oxygen Delivery Method 05/03/23 11:45 05/03/23 11:50 05/03/23 12:00 Temperature Temperature Source Pulse Rate 87 82 93 Respiratory Rate 18 18 21 H Blood Pressure 143/64 H 142/71 H Blood Pressure Mean 85 93 Pulse Ox 98 97 99 Oxygen Delivery Method 05/03/23 12:10 05/03/23 12:15 05/03/23 12:20 Temperature Temperature Source Pulse Rate 96 87 87 Respiratory Rate 23 H 17 19 H Blood Pressure 146/65 H Blood Pressure Mean 88 Pulse Ox 98 99 98 Oxygen Delivery Method Positive well nourished and well developed Constitutional Narrative: Eyes open but stuporous General Appearance ED: well developed and NAD HEENT Reports moist mucous membranes normocephalic and atraumatic Eyes PERRL and EOMs intact bilaterally Neck full ROM and supple Resp normal respiratory effort and clear to auscultation bilaterally Cardio regular rate, regular rhythm and no murmurs Rate: Negative for bradycardia or tachycardic GI non-tender and non-distended Auscultation: normoactive bowel sounds Palpation: soft Back/Spine no CVA tenderness General Back: other FROM Extremity normal to inspection General Extremety ED: Negative for edema, pulses abnormal or tenderness General Extremity: Negative for edema or pulses abnormal Neuro no sensory deficits noted Neuro Narrative: Eyes open and awake but borderline stuporous. Moves all 4 extremities. Able to hold onto emesis basin. Normal but quiet speech when he is able, but he only says a few words at a time. Admits to feeling poorly. Sensorium / Orientation: awake Motor Exam: general weakness Skin no rashes or lesions noted and no wounds MDM MDM MDM Narrative Medical decision making narrative: Soon after my evaluation the patient desatted to 70%, he is awake, but appears hypopneic. His blood pressure is 171/74. For these reasons, I am obtaining a CT of the head to rule out intracranial hemorrhage, but given the likelihood that this is all narcotic-mediated, nursing has placed him on a nonrebreather and I am giving him Narcan 0.4 mg. This did not do anything, and he was still lethargic requiring a nonrebreather so we followed this up with Narcan 2 mg. He then started appearing like he was in some withdrawal, tremulous, dilated pupils, but he was still lethargic. Further work-up is showing a leukocytosis, normal troponin normal EKG, normal CT of the head, I reviewed the images and the report and I agree with it. Potassium is little low I do not think that is causing this. He is a little prerenal, I do not think this is dehydration, and he was given IV fluids. He attempted to urinate but was unable and requesting a catheter. After given multiple opportunities to urinate we did place a Cintron. Urinalysis is unremarkable showing no signs of infection. Etiology of this is unknown. Separate from this, just after obtaining a CT, nurse from pain management's office came and turned the pump off. Hours later the patient is still somnolent and altered. Discussed with hospitalist for admission. Lab Data Attestation: I reviewed the patient's lab results. Labs: Laboratory Results - last 24 hr 05/03/23 05/03/23 07:46 11:40 WBC 14.2 H RBC 4.07 L Hgb 12.8 L Hct 40.7 MCV 100.0 H MCH 31.4 MCHC 31.4 L RDW Std Deviation 51.7 H RDW Coeff of Izabela 13.9 Plt Count 260 MPV 11.3 Immature Gran % (Auto) 0.400 Neut % (Auto) 80.1 H Lymph % (Auto) 11.7 L Emmet % (Auto) 7.1 Eos % (Auto) 0.4 Baso % (Auto) 0.3 Absolute Neuts (auto) 11.4 H Absolute Lymphs (auto) 1.66 Nucleated RBC % 0 Sodium 143 Potassium 3.3 L Chloride 109 H Carbon Dioxide 25.0 Anion Gap 9 BUN 19 H Creatinine 0.88 Estim Creat Clear Calc 68.85 Est GFR (MDRD) Af Amer 109 Est GFR (MDRD) Non-Af 90 BUN/Creatinine Ratio 21.6 H Glucose 163 H Calcium 8.6 Troponin I High Sens 6 Urine Color Yellow Urine Clarity Clear Urine pH 8.0 Ur Specific [place] 1.015 Urine Protein Negative Urine Glucose (UA) Normal Urine Ketones 15 H Urine Occult Blood 10 H Urine Nitrite Negative Urine Bilirubin Negative Urine Urobilinogen Normal Ur Leukocyte Esterase Negative Urine RBC 0-5 SEEN Urine WBC 0 SEEN Ur Squamous Epith Cells 0-5 SEEN Urine Bacteria 0 SEEN Urine Mucus 0 SEEN Radiography Diagnostic Testing: Clinical Impression(s) from Imaging Studies Brain CT 05/03/23 07:28 IMPRESSION: Chronic involutional changes of the brain. Electronically Signed: Papa Hammer MD at 8:56 EDT , Rhythm Strip Rhythm Strip: Sinus Rhythm Rate: 80 Ectopy: None EKG Initial EKG: Attestation: I personally reviewed and interpreted this EKG as follows: Interpretation: Sinus Rhythm, No Acute Injury Pattern and RBBB Prior EKG tracings: available for review Prior: Unchanged Management Discussion w/another healthcare provider: Hospitalist and Glaze Grinder (Dr. Soni, [facility]) Discharge Plan Triage Chief Complaint: Nausea/Vomiting ED Provider: Alex Bautista Dx/Rx/DC Orders Clinical Impression: Encephalopathy acute, Lethargy Prescriptions: No Action clopidogrel 75 mg tablet 75 mg PO DAILY losartan-hydrochlorothiazide 100-12.5 mg tablet 1 tab PO DAILY famotidine 40 mg tablet 40 mg PO DAILY potassium chloride [Klor-Con M20] 20 mEq tablet,ER particles/crystals 20 meq PO DAILY pravastatin 80 mg tablet 80 mg PO QHS sumatriptan succinate 6 mg/0.5 mL pen injector 6 mg subcut ONCE Patient Comments: INJECT 6 Milligrams subcutaneously once per day for 30 days NEEDED for headache sumatriptan succinate [Imitrex] 100 mg tablet 100 mg PO ONCE PRN meloxicam 15 MG tablet 15 mg PO DAILY hydrocodone-acetaminophen [hydrocodone-acetaminophen] 1 TABLET tablet 1 tab PO Q6H PRN PRN (Reason: Pain) 3 Days Qty: 12 0RF ciprofloxacin HCl [ciprofloxacin HCl] 500 MG tablet 500 mg PO BID Qty: 14 0RF oxycodone-acetaminophen [Percocet] 5-325 mg tablet 1 tab PO Q6H PRN (Reason: pain) 3 Days Qty: 12 0RF Primary Care Provider: Sj Pinto Chi Referrals: Sj Pinto Chi, MD [Primary Care Provider] - Disposition Disposition: Acute Care [facility]
[2023-05-03 07:54] LABS: Absolute Lymphocyte Count 1.66 X10^3/uL (0.83-4.51); Absolute Neutrophil Count 11.4 X10^3/uL (2.0-7.7); Basophil# 0.04 X10^3/uL; Basophil% 0.3 % (0-1); Eosinophil# 0.06 X10^3/uL; Eosinophils% 0.4 % (0-5); Hematocrit 40.7 % (40-54); Hemoglobin 12.8 g/dL (13.0-16.5); Lymphocyte # 1.66 X10^3/ul (0.83-4.51); Lymphocyte % 11.7 % (19-41); Mean Corp Hgb Conc 31.4 g/dL (32-36); Mean Corpuscular Hgb 31.4 pg (27.0-32.0); Mean Platelet Vol. 11.3 fl (6.2-12.0); Monocyte# 1.01 X10^3/uL; Monocyte% 7.1 % (0-10); NRBC Flagged by Analyzer 0 % (0-5); Neutrophil # 11.37 X10^3/uL (2.7-7.7); Neutrophil % 80.1 % (47-70); Platelet Count 260 K/mm3 (150-450); RBC Distribution Width CV 13.9 % (11.6-14.6); RBC Distribution Width SD 51.7 fl (35.1-43.9); Red Blood Count 4.07 M/mm3 (4.6-6.2); White Blood Count 14.2 K/mm3 (4.4-11.0)
[2023-05-03] MEDS: Ondansetron 4 MG/2 ML Vial IV ×2 (07:56→19:48)
[2023-05-03] MEDS: 0.9% Normal Saline 1,000 ML 250 ML IV (07:56)
[2023-05-03] MEDS: Naloxone 0.4 MG/ML Syringe IV (07:59)
[2023-05-03 08:11] LABS: Anion Gap 9 (5-15); BUN 19 mg/dL (7-18); BUN/Creat Ratio 21.6 RATIO (10-20); Calcium,Total 8.6 mg/dL (8.5-10.1); Chloride 109 mmol/L (98-107); Creatinine, Serum 0.88 mg/dL (0.70-1.30); EST Glomerular Filtration Rate 90 mL/min (>60); Est Glom Filt Rate - Afr Amer 109 mL/min (>60); Estimated Creatinine Clearance 68.85 ml/min; Glucose 163 mg/dL (74-106); Potassium 3.3 mmol/L (3.5-5.1); Sodium Level 143 mmol/L (136-145); Troponin-I HS 6 pg/mL (3.0-78.0)
[2023-05-03] MEDS: Naloxone 2 MG/2 ML Syringe IV (08:26)
--- NOTE | 2023-05-03 11:08 | ED.RN ---
pt removed from nonrebreather and placed on 5L NC. o2 sats remain in high 90s
[2023-05-03 11:52] LABS: Bacteria 0 SEEN /hpf (None Seen); Mucous, Urine 0 SEEN /hpf (<or=2+); White Blood Cells 0 SEEN /hpf (0-5)
[2023-05-03 11:55] LABS: Color, Urine Yellow (Yellow); Glucose, Dipstick Normal (Normal); Ketone-Dipstick 15 mg/dl (Negative); Leukocyte Esterase-Dipstick Negative /ul (Negative); Nitrite-Dipstick Negative (Negative); Occult Blood-Urine 10 /ul (Negative); Protein-Dipstick Negative (Negative); Specific Gravity, Urine 1.015 (1.002-1.030); Urine Bilirubin Dipstick Negative (Negative); Urine Clarity Clear (Clear); Urine Urobilinogen Normal (Normal)
[2023-05-03 12:09] LABS: Red Blood Cells-Urine 0-5 SEEN /hpf (0-5); Squamous Epithelial Cells - UA 0-5 SEEN /hpf (0-5)
--- NOTE | 2023-05-03 16:01 | HP.PCM.HOS_ITS ---
HPI - General General Date of Admission: 05/03/23 Date of Service: 05/03/23 Chief Complaint: Altered mental status HPI Narrative Bryan Lunsford is a 72-year-old male with history significant for chronic neck and low back pain with implanted Dilaudid pain pump, hypertension, hyperlipidemia, peripheral vascular disease and arthritis who presented to the [facility] ED on 05/03 with altered mental status. Patient seen at bedside, no one else was present to corroborate history. Patient was quite somnolent but did awaken to my voice. He was able to speak softly with yes and no answers to questions. Was answering basic questions appropriately but was falling asleep every 5 to 7 seconds. He did report feeling very tired and fatigued. He did not report any acute pain or discomfort. Per ED staff report, patient follows with Dr. Soni for pain management. He recently had Dilaudid placed in his pain pump instead of morphine; unclear on the timing of this. Patient was noted to be hypoxic at 75% when he arrived. Improved quickly with supplemental oxygen, but patient continued to appear hypopneic. Blood pressure was stable, and other vital signs were negative. Was given 0.4 mg of Narcan with no response. This was followed up with 2 mg of Narcan, and at that time it appeared like patient was possibly in withdrawal with some tremulousness and dilated pupils, however he was still lethargic. CT head was negative for any acute pathology. Lab work-up was positive for a mild leukocytosis but was otherwise benign. FOR[facility]LY [facility] Medical History Arthritis Chest pain Essential hypertension Hydronephrosis with obstructing calculus Hyperlipidemia Kidney stones Peripheral vascular disease of extremity with claudication Right bundle branch block (RBBB) Ureteral calculus, right Home Medications meloxicam 15 mg tablet 15 mg PO DAILY ARTHRITIS 09/26/16 [History Last Taken 05/08/17 08:00 15 MG] clopidogrel 75 mg tablet 75 mg PO DAILY 10/14/21 [History Last Taken Unknown] famotidine 40 mg tablet 40 mg PO DAILY 10/14/21 [History Last Taken Unknown] losartan 100 mg-hydrochlorothiazide 12.5 mg tablet 1 tab PO DAILY 10/14/21 [History Last Taken Unknown] potassium chloride 20 mEq tablet,extended release(part/cryst) (Klor-Con M) 20 meq PO DAILY 10/14/21 [History Last Taken Unknown] pravastatin 80 mg tablet 80 mg PO QHS 10/14/21 [History Last Taken Unknown] sumatriptan succinate 100 mg tablet (Imitrex) 100 mg PO ONCE PRN 10/14/21 [History Last Taken Unknown] sumatriptan succinate 6 mg/0.5 mL subcutaneous pen injector 6 mg subcut ONCE 10/14/21 [History Last Taken Unknown] ciprofloxacin HCl 500 mg tablet 500 mg PO BID #14 TABLETS 01/18/22 [Rx Last Taken Unknown] hydrocodone-acetaminophen 5-325mg 5mg-325mg 1 tab PO Q6H PRN PRN Pain 3 days #12 TABLETS 01/18/22 [Rx Last Taken Unknown] oxycodone-acetaminophen 5 mg-325 mg tablet (Percocet) 1 tab PO Q6H PRN pain 3 days #12 tabs 02/26/23 [Rx Last Taken Unknown] Allergy/AdvReac Type Severity Reaction Status Date / Time codeine Allergy AFFECTED Verified 05/03/23 07:03 BREATHING prednisone AdvReac Other Verified 05/03/23 07:03 Family History Father Hyperlipidemia Surgical History H/O arthroscopic knee surgery H/O excision of lamina of cervical vertebra for decompression of spinal cord History of appendectomy History of colonoscopy History of hemorrhoidectomy History of left knee replacement History of lumbar laminectomy History of repair of rotator cuff History of tonsillectomy Social History Smoking Status: Former smoker quit date: 09/17/81 pack-years: 19 ROS Review of Systems ROS Unobtainable: due to encephalopathy Vital Signs Vital Signs Vital Signs: 05/03/23 07:03 05/03/23 07:45 05/03/23 07:23 Temperature 97.6 F L Temperature Source Temporal Pulse Rate 87 97 Respiratory Rate 14 25 H Blood Pressure 141/88 H Blood Pressure Mean 105 Pulse Ox 100 70 95 Oxygen Delivery Method Room Air Room Air Oxygen Flow Rate (L/min) 05/03/23 07:30 05/03/23 07:40 05/03/23 07:45 Temperature Temperature Source Pulse Rate 82 85 78 Respiratory Rate 21 H 17 24 H Blood Pressure 171/74 H 170/79 H Blood Pressure Mean 100 104 Pulse Ox 94 92 100 Oxygen Delivery Method Oxygen Flow Rate (L/min) 05/03/23 07:50 05/03/23 08:00 05/03/23 08:10 Temperature Temperature Source Pulse Rate 78 87 94 Respiratory Rate 20 H 15 11 L Blood Pressure 168/80 H Blood Pressure Mean 105 Pulse Ox 100 100 100 Oxygen Delivery Method Oxygen Flow Rate (L/min) 05/03/23 08:15 05/03/23 08:21 05/03/23 08:30 Temperature Temperature Source Pulse Rate 79 116 H Respiratory Rate 15 27 H Blood Pressure 170/83 H Blood Pressure Mean 108 Pulse Ox 100 Oxygen Delivery Method Oxygen Flow Rate (L/min) 05/03/23 08:40 05/03/23 08:50 05/03/23 09:00 Temperature Temperature Source Pulse Rate 102 H 103 H 99 Respiratory Rate 24 H 19 H 22 H Blood Pressure Blood Pressure Mean Pulse Ox 100 100 Oxygen Delivery Method Oxygen Flow Rate (L/min) 05/03/23 09:10 05/03/23 09:20 05/03/23 09:30 Temperature Temperature Source Pulse Rate 90 86 Respiratory Rate 16 23 H 23 H Blood Pressure Blood Pressure Mean Pulse Ox 99 99 100 Oxygen Delivery Method Oxygen Flow Rate (L/min) 05/03/23 09:31 05/03/23 09:40 05/03/23 09:45 Temperature Temperature Source Pulse Rate 81 77 79 Respiratory Rate 19 H 21 H 17 Blood Pressure 168/71 H 199/162 H Blood Pressure Mean 94 173 Pulse Ox 97 100 100 Oxygen Delivery Method Oxygen Flow Rate (L/min) 05/03/23 09:50 05/03/23 10:00 05/03/23 10:10 Temperature Temperature Source Pulse Rate 77 77 66 Respiratory Rate 18 20 H 15 Blood Pressure 151/95 H Blood Pressure Mean 108 Pulse Ox 100 100 100 Oxygen Delivery Method Oxygen Flow Rate (L/min) 05/03/23 10:15 05/03/23 10:20 05/03/23 10:30 Temperature Temperature Source Pulse Rate 63 77 79 Respiratory Rate 15 16 18 Blood Pressure 151/70 H 162/74 H Blood Pressure Mean 93 100 Pulse Ox 99 100 100 Oxygen Delivery Method Oxygen Flow Rate (L/min) 05/03/23 10:40 05/03/23 10:45 05/03/23 10:50 Temperature Temperature Source Pulse Rate 87 84 88 Respiratory Rate 19 H 22 H 13 Blood Pressure 157/74 H Blood Pressure Mean 98 Pulse Ox 99 99 99 Oxygen Delivery Method Oxygen Flow Rate (L/min) 05/03/23 11:00 05/03/23 11:10 05/03/23 11:15 Temperature Temperature Source Pulse Rate 96 91 88 Respiratory Rate 24 H 22 H 20 H Blood Pressure 159/74 H 144/63 H Blood Pressure Mean 98 87 Pulse Ox 97 92 99 Oxygen Delivery Method Oxygen Flow Rate (L/min) 05/03/23 11:20 05/03/23 11:30 05/03/23 11:40 Temperature Temperature Source Pulse Rate 85 90 85 Respiratory Rate 19 H 21 H 22 H Blood Pressure 143/69 H Blood Pressure Mean 90 Pulse Ox 99 99 98 Oxygen Delivery Method Oxygen Flow Rate (L/min) 05/03/23 11:45 05/03/23 11:50 05/03/23 12:00 Temperature Temperature Source Pulse Rate 87 82 93 Respiratory Rate 18 18 21 H Blood Pressure 143/64 H 142/71 H Blood Pressure Mean 85 93 Pulse Ox 98 97 99 Oxygen Delivery Method Oxygen Flow Rate (L/min) 05/03/23 12:10 05/03/23 12:15 05/03/23 12:20 Temperature Temperature Source Pulse Rate 96 87 87 Respiratory Rate 23 H 17 19 H Blood Pressure 146/65 H Blood Pressure Mean 88 Pulse Ox 98 99 98 Oxygen Delivery Method Oxygen Flow Rate (L/min) 05/03/23 12:30 05/03/23 12:40 05/03/23 12:45 Temperature Temperature Source Pulse Rate 87 86 94 Respiratory Rate 15 20 H 20 H Blood Pressure 138/64 H 145/74 H Blood Pressure Mean 85 95 Pulse Ox 99 98 99 Oxygen Delivery Method Oxygen Flow Rate (L/min) 05/03/23 12:50 05/03/23 13:00 05/03/23 13:10 Temperature Temperature Source Pulse Rate 87 80 84 Respiratory Rate 17 34 H 24 H Blood Pressure 134/62 H Blood Pressure Mean 83 Pulse Ox 99 98 97 Oxygen Delivery Method Oxygen Flow Rate (L/min) 05/03/23 13:15 05/03/23 15:27 05/03/23 13:20 Temperature 96.8 F L Temperature Source Temporal Pulse Rate 73 71 88 Respiratory Rate 19 H 12 19 H Blood Pressure 124/68 H 125/59 H Blood Pressure Mean 86 81 Pulse Ox 96 99 99 Oxygen Delivery Method Nasal Cannula Oxygen Flow Rate (L/min) 5 05/03/23 13:30 05/03/23 13:40 05/03/23 13:45 Temperature Temperature Source Pulse Rate 82 81 Respiratory Rate 15 25 H Blood Pressure 146/65 H 142/62 H Blood Pressure Mean 88 84 Pulse Ox 99 98 Oxygen Delivery Method Oxygen Flow Rate (L/min) 05/03/23 13:50 05/03/23 14:00 05/03/23 14:10 Temperature Temperature Source Pulse Rate 83 76 89 Respiratory Rate 16 16 18 Blood Pressure 127/64 H Blood Pressure Mean 83 Pulse Ox 98 96 99 Oxygen Delivery Method Oxygen Flow Rate (L/min) 05/03/23 14:15 05/03/23 14:20 05/03/23 14:30 Temperature Temperature Source Pulse Rate 85 77 74 Respiratory Rate 18 15 21 H Blood Pressure 145/69 H 120/65 Blood Pressure Mean 92 81 Pulse Ox 99 98 97 Oxygen Delivery Method Oxygen Flow Rate (L/min) 05/03/23 14:40 05/03/23 14:45 05/03/23 14:50 Temperature Temperature Source Pulse Rate 77 78 75 Respiratory Rate 25 H 17 16 Blood Pressure 139/66 H Blood Pressure Mean 84 Pulse Ox 99 98 98 Oxygen Delivery Method Oxygen Flow Rate (L/min) 05/03/23 15:00 05/03/23 15:10 05/03/23 15:15 Temperature Temperature Source Pulse Rate 74 72 75 Respiratory Rate 26 H 24 H 15 Blood Pressure 142/54 H 125/59 H Blood Pressure Mean 80 79 Pulse Ox 97 98 98 Oxygen Delivery Method Oxygen Flow Rate (L/min) 05/03/23 15:20 Temperature Temperature Source Pulse Rate 70 Respiratory Rate 27 H Blood Pressure Blood Pressure Mean Pulse Ox 98 Oxygen Delivery Method Oxygen Flow Rate (L/min) Weight Weight: 69.9 kg Body Mass Index (BMI) 24.1 Physical Exam Const Constitutional Narrative: Patient lying comfortably in bed, very somnolent, responding to voice and answering some questions appropriately but was constantly falling asleep during my exam. Orientation / Consciousness: lethargic HEENT normocephalic, head/scalp atraumatic, hearing grossly normal bilaterally, nasal mucous membranes and turbinates normal and moist oral mucous membranes Neck full ROM and supple Lymph Lymphatic: no lymphadenopathy noted Chest inspection of chest normal Resp normal respiratory effort Resp Narrative: Satting well on 2 L nasal cannula. Appeared to have a decreased respiratory rate. Good air movement bilaterally. Cardio regular rate, regular rhythm, no murmurs and peripheral pulses 2+ throughout GI normal to inspection, nondistended, normoactive bowel sounds, soft to palpation, non-tender and non-distended Back/Spine normal ROM Extremity normal to inspection, full ROM and no pedal edema Skin no rashes or lesions noted Psych mental status grossly normal Results Lab / Micro Data 05/03/23 07:46 05/03/23 07:46 Labs: Laboratory Results - last 24 hr 05/03/23 07:46: WBC 14.2 H, RBC 4.07 L, Hgb 12.8 L, Hct 40.7, MCV 100.0 H, MCH 31.4, MCHC 31.4 L, RDW Std Deviation 51.7 H, RDW Coeff of Izabela 13.9, Plt Count 260, MPV 11.3, Immature Gran % (Auto) 0.400, Neut % (Auto) 80.1 H, Lymph % (Auto) 11.7 L, [place] % (Auto) 7.1, Eos % (Auto) 0.4, Baso % (Auto) 0.3, Absolute Neuts (auto) 11.4 H, Absolute Lymphs (auto) 1.66, Nucleated RBC % 0, Sodium 143, Potassium 3.3 L, Chloride 109 H, Carbon Dioxide 25.0, Anion Gap 9, BUN 19 H, Creatinine 0.88, Estim Creat Clear Calc 68.85, Est GFR (MDRD) Af Amer 109, Est GFR (MDRD) Non-Af 90, BUN/Creatinine Ratio 21.6 H, Glucose 163 H, Calcium 8.6, Troponin I High Sens 6 05/03/23 11:40: Urine Color Yellow, Urine Clarity Clear, Urine pH 8.0, Ur Specific [place] 1.015, Urine Protein Negative, Urine Glucose (UA) Normal, Urine Ketones 15 H, Urine Occult Blood 10 H, Urine Nitrite Negative, Urine Bilirubin Negative, Urine Urobilinogen Normal, Ur Leukocyte Esterase Negative, Urine RBC 0-5 SEEN, Urine WBC 0 SEEN, Ur Squamous Epith Cells 0-5 SEEN, Urine Bacteria 0 SEEN, Urine Mucus 0 SEEN Rhythm Strip Rhythm Strip: Sinus Rhythm Rate: 80 Ectopy: None Radiology Impression Brain CT 05/03/23 07:28 IMPRESSION: Chronic involutional changes of the brain. Electronically Signed: Papa Hammer MD at 8:56 EDT , Assessment & Plan Assessment/Plan (1) Lethargy: PLAN: Plan Bryan Lunsford is a 72-year-old male with history significant for chronic neck and low back pain with implanted Dilaudid pain pump, hypertension, hyperlipidemia, peripheral vascular disease and arthritis who presented to the [facility] ED on 05/03 with altered mental status. 1. Altered mental status -Seems most likely secondary to oversedation from opiates, as he had some response noted to the 2 mg dose of Narcan and all other work-up to this point is been negative. Stable at this time, no concern for significant respiratory depression that would necessitate respiratory support. Dr. Soni with pain management consulted, appreciate recommendations. 2. Chronic neck and low back pain with implanted Dilaudid pain pump -Follows with Dr. Soni in the office, appreciate his recommendations as above. 3. Leukocytosis ? Suspect secondary to acute stress reaction. Monitor CBC tomorrow morning. No need for infectious work-up at this time. 4. Hypertension ? Hypertensive to the 170s systolic on admit. Will resume patient's home medications of losartan and hydrochlorothiazide. 5. Peripheral vascular disease ? Continue home Plavix. 6. Hyperlipidemia ? Continue home pravastatin. DVT prophylaxis: Lovenox CODE STATUS: Full code, unverified Expected disposition: TBD Total clinical time spent by myself addressing the patient's medical issues, reviewing all the data, and collaborating with patient's care team: 55 minutes. Charges/Coding Visit Charges Inpatient E&M: 33612 Init Hosp L2
[2023-05-04] VITALS (13 sets, daily range): BP systolic 147–184; BP diastolic 73–83; PULSE 74–95; RESP 16–22; TEMP 36.3–37.1; O2SAT 80–100; BMI 24.1
[2023-05-04] MEDS: 0.9% Saline Lock 10 ML Syringe IV ×5 (04:19→17:51)
[2023-05-04] MEDS: Ondansetron 4 MG/2 ML Vial IV ×2 (04:19→15:08)
[2023-05-04] MEDS: proCHLORPERazine 10 MG/2 ML Vial 5 MG IV (07:54)
[2023-05-04 08:43] LABS: Hematocrit 40.9 % (40-54); Hemoglobin 12.5 g/dL (13.0-16.5); Mean Corp Hgb Conc 30.6 g/dL (32-36); Mean Corpuscular Hgb 30.5 pg (27.0-32.0); Mean Corpuscular Volume 99.8 fL (80-94); Mean Platelet Vol. 11.1 fl (6.2-12.0); Platelet Count 208 K/mm3 (150-450); RBC Distribution Width CV 14.1 % (11.6-14.6); RBC Distribution Width SD 51.5 fl (35.1-43.9); White Blood Count 10.4 K/mm3 (4.4-11.0)
[2023-05-04 09:36] LABS: Anion Gap 5 (5-15); BUN 21 mg/dL (7-18); BUN/Creat Ratio 30.1 RATIO (10-20); Calcium,Total 8.7 mg/dL (8.5-10.1); Chloride 110 mmol/L (98-107); EST Glomerular Filtration Rate 118 mL/min (>60); Est Glom Filt Rate - Afr Amer 142 mL/min (>60); Estimated Creatinine Clearance 60.59 ml/min; Glucose 135 mg/dL (74-106); Potassium 3.8 mmol/L (3.5-5.1); Sodium Level 141 mmol/L (136-145)
--- NOTE | 2023-05-04 09:51 | NURSING ---
Pulse ox was alarming in the 50's %. 02 applied. Patient's pulse ox is not 95% on 4L. Will cont. to monitor. Patient still appears drowsy, but arousable to voice.
[2023-05-04] MEDS: Ketorolac 15 MG/ML Vial IV ×2 (10:24→17:51)
--- NOTE | 2023-05-04 12:35 | CASEMGMT ---
RN?CM?PROP CUTTER?CM?to room to meet with patient for initial transition planning/care coordination?assessment.?RN?CM?introduced self and role at [facility].? Pt voices understanding and consents to?assessment?at this time.? Pt resting in bed in no distress at this time.? Pt is A/O at this time and answers all questions appropriately.?? Care providers, pharmacy, and demographics verified/updated at this time. Towards the end of assessment, pt stated was having some nausea. RNRajni, made aware. PCP: Dr Pinto Specialists: Dr Gardner-vascular, Dr Soni-pain mgnt Preferred Pharmacy: [facility] Insurance: [facility] A/B Prescription Benefit:?none Living Will/HPOA:?Pt does not currently have LW/HCPOA and declines info at this time.? He states they have started doing these but have not finished them. He was made aware SW can help w/completing this if he wishes. He states he is not interested at this time. LNOK: , Christine. 2 children Living Arrangements: Lives w/his in 2-story home and no steps to enter. Has bathroom on main floor and 2nd floor, but bathroom on main floor only has a bathtub, not a shower, so he goes to 2nd floor to take a shower. He states he does okay w/the stairs. Bedroom in on main floor. Pt states he is independent w/ADL's and manages his own medications and does most home mgnt tasks. Transportation:?Pt states he drives some, but does most of the driving. DME: States has the following DME:?BSC, quad cane, walker. Pt states he uses the cane and walker sometimes ?Pt states no need for further DME at this time.? HHC/SNF: No hx of either. Pt has done OP therapy in the past. Discussed d/c planning. Pt prefers to return home and would be interested in HHC and would like a HHC list but he has not been OOB yet and is aware PT/OT evals are pending. CM or SW to follow up w/pt after therapy has worked w/him and recommendations are made to discuss discharge planning further. He voices understanding. Pt Plan: Pt prefers home w/HHC. PLAN:??TBD by progress w/therapy. PT/OT evals pending. Rosa BSN?RN?CM
[2023-05-04] MEDS: Dicyclomine 10 MG Capsule 20 MG PO ×2 (12:46→18:29)
[2023-05-04] MEDS: Methocarbamol 750 MG Tablet 1500 MG PO ×2 (12:46→22:05)
[2023-05-04] MEDS: Enoxaparin 40 MG/0.4 ML Syringe SC (12:50)
[2023-05-04] MEDS: Famotidine 20 MG Tablet 40 MG PO (12:50)
[2023-05-04] MEDS: Clopidogrel Bisulfate 75 MG Tablet PO (12:50)
--- NOTE | 2023-05-04 15:55 | PN.HOSP_ITS ---
Reason for Visit Reason for Visit: Diagnoses Other fatigue (05/04/23) Subjective Subjective Patient seen at bedside this morning. He is much more awake and alert than he was on admission, however he is not having opiate withdrawal symptoms. Primary symptoms are tremulousness and general body aches. He is asking for me to put him out so that he feels more comfortable. Patient does state that he was recently switched to Dilaudid in his pain pump as noted yesterday. States he was switched because the morphine and the pain pump was not working. No other acute concerns at this time. Objective Data Objective Data Vital Signs: Vital Signs Temp Pulse Resp BP Pulse Ox O2 Del Method O2 Flow Rate 98.8 F 95 18 153/80 H 96 Nasal Cannula 3 05/04/23 15:40 05/04/23 15:40 05/04/23 15:40 05/04/23 15:40 05/04/23 15:40 05/04/23 15:40 05/04/23 15:40 Oxygen Flow Rate (L/min) 3 Oxygen Delivery Method Nasal Cannula Weight: 69.9 kg Body Mass Index (BMI) 24.1 Intake & Output: Intake and Output for Last 24 Hours 05/02/23 05/03/23 05/04/23 23:59 23:59 23:59 Intake Total 1000 / 1000 Output Total 600 / 600 300 / 300 Balance 400 / 400 -300 / -300 Lab / Micro Data Attestation: I reviewed the patient's lab results. 05/04/23 08:27 05/04/23 08:27 Labs: Laboratory Results - last 24 hr 05/04/23 08:27: WBC 10.4, RBC 4.10 L, Hgb 12.5 L, Hct 40.9, MCV 99.8 H, MCH 30.5, MCHC 30.6 L, RDW Std Deviation 51.5 H, RDW Coeff of Izabela 14.1, Plt Count 208, MPV 11.1, Sodium 141, Potassium 3.8, Chloride 110 H, Carbon Dioxide 26.0, Anion Gap 5, BUN 21 H, Creatinine 0.70, Estim Creat Clear Calc 60.59, Est GFR (MDRD) Af Amer 142, Est GFR (MDRD) Non-Af 118, BUN/Creatinine Ratio 30.1 H, Glucose 135 H, Calcium 8.7 Rhythm Strip Rhythm Strip: Sinus Rhythm Rate: 80 Ectopy: None Physical Exam Const alert and oriented x3 Constitutional Narrative: Patient sitting in bed, tremulousness and agitation noted. He is alert and oriented but does not appear very comfortable. General Appearance: cooperative HEENT normocephalic, head/scalp atraumatic, hearing grossly normal bilaterally, nasal mucous membranes and turbinates normal and moist oral mucous membranes Neck full ROM and supple Lymph Lymphatic: no lymphadenopathy noted Chest inspection of chest normal Resp normal respiratory effort, normal air movement, no use of accessory muscles and clear to auscultation bilaterally Resp Narrative: Satting well on room air. Cardio regular rate, regular rhythm, no murmurs and peripheral pulses 2+ throughout GI normal to inspection, nondistended, normoactive bowel sounds, soft to palpation, non-tender and non-distended Back/Spine normal ROM Extremity normal to inspection, full ROM and no pedal edema Skin no rashes or lesions noted Psych mental status grossly normal Assessment & Plan Assessment/Plan (1) Encephalopathy acute: PLAN: Plan Bryan Lunsford is a 72-year-old male with history significant for chronic neck and low back pain with implanted Dilaudid pain pump, hypertension, hyperlipidemia, peripheral vascular disease and arthritis who presented to the [facility] ED on 05/03 with altered mental status. 1. Opiate withdrawal; altered mental status, resolved Initially presented with oversedation secondary to opiates. This was secondary to his recent change in medication from a morphine pump to Dilaudid pump. Opiates have now washed out of his system and he is withdrawing. Primary symptoms are tremulousness and general body aches. -Opiate withdrawal order set ordered. Discussed with Dr. Soni; patient has outpatient follow-up appointment with him early next week. We will start him on oxycodone 10 to 15 mg every 6 scheduled now. If stable on this, we will discharge him home with 3 to 4 days worth of medication for this to get him to his outpatient follow-up appointment. 2. Chronic neck and low back pain with implanted Dilaudid pain pump -Follows with Dr. Soni in the office. Planning for outpatient appointment early next week to discuss further pain management options. 3. Leukocytosis, improved ? Suspect secondary to acute stress reaction. White count 14 on admission, improved to 10 on 05/04. No need to monitor further. 4. Hypertension ? Hypertensive to the 170s systolic on admit. Continue home medications of losartan and hydrochlorothiazide. 5. Peripheral vascular disease ? Continue home Plavix. 6. Hyperlipidemia ? Continue home pravastatin. DVT prophylaxis: Lovenox CODE STATUS: Full code, unverified Expected disposition: Home, likely tomorrow Total clinical time spent by myself addressing the patient's medical issues, reviewing all the data, and collaborating with patient's care team: 35 minutes. Charges/Coding Visit Charges Inpatient E&M: 03726 Subs Hosp L2
[2023-05-04] MEDS: hydrOXYzine PAM 25 MG Capsule 50 MG PO (17:51)
[2023-05-04] MEDS: cloNIDine HCl 0.1 MG Tablet PO (19:53)
[2023-05-04] MEDS: Pravastatin 80 MG Tablet PO (19:53)
[2023-05-04] MEDS: oxyCODONE 5 MG Tablet PO (20:17)
[2023-05-04] MEDS: MELATONIN 3 MG TABLET PO (22:05)
[2023-05-05] VITALS (10 sets, daily range): BP systolic 148–172; BP diastolic 74–80; PULSE 71–91; RESP 16–22; TEMP 36.8–37.2; O2SAT 92–100
[2023-05-05] MEDS: oxyCODONE 5 MG Tablet PO ×3 (00:57→12:14)
[2023-05-05] MEDS: Methocarbamol 750 MG Tablet 1500 MG PO (04:07)
[2023-05-05] MEDS: hydrOXYzine PAM 25 MG Capsule 50 MG PO (04:07)
[2023-05-05] MEDS: Dicyclomine 10 MG Capsule 20 MG PO (04:08)
[2023-05-05] MEDS: Ondansetron 8 MG Tablet PO (04:08)
[2023-05-05] MEDS: cloNIDine HCl 0.1 MG Tablet PO (04:08)
[2023-05-05] MEDS: Gabapentin 300 MG Capsule PO (08:14)
[2023-05-05] MEDS: Ketorolac 15 MG/ML Vial IV (08:20)
[2023-05-05] MEDS: 0.9% Saline Lock 10 ML Syringe IV (08:21)
[2023-05-05] MEDS: Clopidogrel Bisulfate 75 MG Tablet PO (09:12)
[2023-05-05] MEDS: Famotidine 20 MG Tablet 40 MG PO (09:13)
[2023-05-05] MEDS: Losartan Potassium 100 MG Tablet PO (09:13)
[2023-05-05] MEDS: hydroCHLOROthiazide 12.5mg 12.5 MG PO (09:13)
[2023-05-05] MEDS: Enoxaparin 40 MG/0.4 ML Syringe SC (09:13)
--- NOTE | 2023-05-05 09:15 | PN.HOSP_ITS ---
Reason for Visit Reason for Visit: Diagnoses Encephalopathy, unspecified (05/04/23) Other fatigue (05/04/23) Subjective Subjective Feels well. No complaints Objective Data Objective Data Vital Signs: Vital Signs Temp Pulse Resp BP Pulse Ox O2 Del Method O2 Flow Rate 37.2 C 91 20 H 148/80 H 99 Nasal Cannula 4 05/05/23 09:06 05/05/23 09:06 05/05/23 09:06 05/05/23 09:06 05/05/23 09:06 05/05/23 09:06 05/05/23 09:06 Oxygen Flow Rate (L/min) 4 Oxygen Delivery Method Nasal Cannula Weight: 69.9 kg Body Mass Index (BMI) 24.1 Intake & Output: Intake and Output for Last 24 Hours 05/03/23 05/04/23 05/05/23 23:59 23:59 23:59 Intake Total 1000 / 1000 450 / 450 60 / 60 Output Total 600 / 600 1050 / 1250 275 / 275 Balance 400 / 400 -600 / -800 -215 / -215 Lab / Micro Data 05/04/23 08:27 05/04/23 08:27 Labs: Laboratory Results - last 24 hr 05/04/23 08:27: Sodium 141, Potassium 3.8, Chloride 110 H, Carbon Dioxide 26.0, Anion Gap 5, BUN 21 H, Creatinine 0.70, Estim Creat Clear Calc 60.59, Est GFR (MDRD) Af Amer 142, Est GFR (MDRD) Non-Af 118, BUN/Creatinine Ratio 30.1 H, Glucose 135 H, Calcium 8.7 Rhythm Strip Rhythm Strip: Sinus Rhythm Rate: 80 Ectopy: None Physical Exam Const alert and no apparent distress Resp normal respiratory effort, no retractions, no use of accessory muscles and clear to auscultation bilaterally Cardio regular rate, regular rhythm, S1 normal heart sound and S2 normal heart sound GI normal to inspection, nondistended, normoactive bowel sounds, soft to palpation, non-tender and non-distended Psych affect normal Assessment & Plan Assessment/Plan (1) Encephalopathy acute: PLAN: Toxic 2/2 opiates Initially presented with oversedation secondary to opiates. This was secondary to his recent change in medication from a morphine pump to Dilaudid pump. Opiates have now washed out of his system and he is withdrawing. Primary symptoms are tremulousness and general body aches. -Opiate withdrawal order set ordered. Discussed with Dr. Soni; patient has outpatient follow-up appointment with him early next week. We will start him on oxycodone 10 to 15 mg every 6 scheduled now. If stable on this, we will discharge him home with 3 to 4 days worth of medication for this to get him to his outpatient follow-up appointment. (2) Leukocytosis: QUALIFIERS: Leukocytosis type: unspecified Qualified Code(s): D72.829 - Elevated white blood cell count, unspecified PLAN: improved Suspect secondary to acute stress reaction. White count 14 on admission, improved to 10 on 05/04. No need to monitor further. PLAN: Plan Chronic conditions: * Chronic neck and low back pain with implanted Dilaudid pain pump-Follows with Dr. Soni in the office. Planning for outpatient appointment early next week to discuss further pain management options. * Hypertension? Hypertensive to the 170s systolic on admit. Continue home medications of losartan and hydrochlorothiazide. * Peripheral vascular disease? Continue home Plavix. * Hyperlipidemia? Continue home pravastatin. DVT prophylaxis: Lovenox CODE STATUS: Full code, unverified Expected disposition: Home
--- NOTE | 2023-05-05 10:15 | CASEMGMT ---
Addendum entered by Jaycee Santos 05/05/23 11:39: MAKENZIE CAPPS into pt room, pt states he has chosen [facility] as he would like an agency in [place]. TC to [facility], left message on intake vm for PT and OT. Will await acceptance. Original Note: Therapy is recommending home therapy. MAKENZIE CAPPS into pt room, pt sitting up in chair. Discussed dc planning, pt states he would be agreeable to having home therapy but is not interested in a nurse. Provided pt with a list of [employer] created by dc media planner. Pt to review and MAKENZIE CAPPS will come back for the top 3 preferences.
--- NOTE | 2023-05-05 12:21 | PCM.DC.SUM ---
Providers Date of Admission: 05/04/23 Primary Care Physician: Dr. Sj Pinto MD Consultations 05/03/23 12:57 Consult: Pain Management Routine Consulting Provider: Oscar Soni Reason for Consult: intrathecal pain pump for chronic back pain, presented w/ AMS EMERGENT Consult: No MD Notified: Yes Date Notified: 05/03/23 Time Notified: 16:20 Method of Notification: office Reason For Visit: ALTERED MENTAL STATUS Diagnosis Discharge Diagnosis (1) Encephalopathy acute: Status: Acute Code(s): G93.40 - Encephalopathy, unspecified Plan: Toxic 2/2 opiates Initially presented with oversedation secondary to opiates. This was secondary to his recent change in medication from a morphine pump to Dilaudid pump. Opiates have now washed out of his system and he is withdrawing. Primary symptoms are tremulousness and general body aches. -Opiate withdrawal order set ordered. Discussed with Dr. Soni; patient has outpatient follow-up appointment with him early next week. We will start him on oxycodone 10 to 15 mg every 6 scheduled now. If stable on this, we will discharge him home with 3 to 4 days worth of medication for this to get him to his outpatient follow-up appointment. (2) Leukocytosis: Status: Acute Code(s): D72.829 - Elevated white blood cell count, unspecified Qualifiers: Leukocytosis type: unspecified Qualified Code(s): D72.829 - Elevated white blood cell count, unspecified Plan: improved Suspect secondary to acute stress reaction. White count 14 on admission, improved to 10 on 05/04. No need to monitor further. Plan Chronic conditions: Chronic neck and low back pain with implanted Dilaudid pain pump-Follows with Dr. Soni in the office. Planning for outpatient appointment early next week to discuss further pain management options. Hypertension? Hypertensive to the 170s systolic on admit. Continue home medications of losartan and hydrochlorothiazide. Peripheral vascular disease? Continue home Plavix. Hyperlipidemia? Continue home pravastatin. DVT prophylaxis: Lovenox CODE STATUS: Full code, unverified Expected disposition: Home Medications at Discharge Home Medications meloxicam 15 mg tablet 15 mg PO DAILY ARTHRITIS 09/26/16 clopidogrel 75 mg tablet 75 mg PO DAILY 10/14/21 famotidine 40 mg tablet 40 mg PO DAILY 10/14/21 pravastatin 80 mg tablet 80 mg PO QHS 10/14/21 sumatriptan succinate 6 mg/0.5 mL subcutaneous pen injector 6 mg subcut DAILY PRN 10/14/21 fluoxetine 40 mg capsule 80 mg PO DAILY 05/04/23 gabapentin 300 mg capsule 300 mg PO TID 05/04/23 pantoprazole 20 mg tablet,delayed release 20 mg PO DAILY 05/04/23 acetaminophen 500 mg capsule 1,000 mg (2 x 500 mg) PO Q8H #30 caps 05/05/23 dicyclomine 10 mg capsule 20 mg (2 x 10 mg) PO Q6H PRN PRN Abdominal Discomfort 3 days #12 caps 05/05/23 losartan 100 mg-hydrochlorothiazide 12.5 mg tablet 1 tab PO DAILY #30 tabs 05/05/23 oxycodone 5 mg tablet 10 - 15 mg (2 - 3 x 5 mg) PO Q6 PRN pain 4 days #30 tabs 05/05/23 Hospital Course Operations None Procedures None Summary of Care Provided Minutes Spent on Discharge: 35 Weight / BMI Weight Weight: 69.9 kg Body Mass Index (BMI) 24.1 ABG / Lab / Microbiology Data 05/04/23 08:27 05/04/23 08:27 D/C Instructions Discharge Diet: No restrictions Meaningful Use Info Meaningful Use Diagnoses (Choose all that apply): None applicable Discharge Plan Admission Admit Date/Time: 05/04/23 09:18 Primary Reason for Your Visit: encephalopathy Attending Provider: Shabbir Cuellar Primary Care Provider: Sj Pinto Chi Consulting Providers: Oscar Soni; Jay Diaz Discharge Orders/Prescriptions Prescriptions: New dicyclomine 10 mg Capsule 20 mg PO Q6H PRN PRN (Reason: Abdominal Discomfort) 3 Days Qty: 12 0RF oxycodone 5 mg Tablet 10 - 15 mg PO Q6 PRN (Reason: pain) 4 Days Qty: 30 0RF acetaminophen 500 mg capsule 1,000 mg PO Q8H Qty: 30 0RF Continued clopidogrel 75 mg tablet 75 mg PO DAILY famotidine 40 mg tablet 40 mg PO DAILY pravastatin 80 mg tablet 80 mg PO QHS sumatriptan succinate 6 mg/0.5 mL pen injector 6 mg subcut DAILY PRN Patient Comments: INJECT 6 Milligrams subcutaneously once per day for 30 days NEEDED for headache meloxicam 15 MG tablet 15 mg PO DAILY fluoxetine 40 mg capsule 80 mg PO DAILY Patient Comments: TAKE 2 CAPSULES BY MOUTH ONCE DAILY FOR 90 DAYS pantoprazole 20 mg tablet,delayed release (DR/EC) 20 mg PO DAILY Patient Comments: TAKE 1 TABLET BY MOUTH ONCE DAILY gabapentin 300 mg capsule 300 mg PO TID Patient Comments: Take one capsule by mouth three times a day. losartan-hydrochlorothiazide 100-12.5 mg tablet 1 tab PO DAILY Qty: 30 0RF Discontinued potassium chloride [Klor-Con M20] 20 mEq tablet,ER particles/crystals 20 meq PO DAILY sumatriptan succinate [Imitrex] 100 mg tablet 100 mg PO ONCE PRN (Reason: migraine headache) hydrocodone-acetaminophen [hydrocodone-acetaminophen] 1 TABLET tablet 1 tab PO Q6H PRN PRN (Reason: Pain) 3 Days Qty: 12 0RF ciprofloxacin HCl [ciprofloxacin HCl] 500 MG tablet 500 mg PO BID Qty: 14 0RF oxycodone-acetaminophen [Percocet] 5-325 mg tablet 1 tab PO Q6H PRN (Reason: pain) 3 Days Qty: 12 0RF Referrals / Follow Up: Oscar Soni MD [Med Staff - Active Staff] - Within 1 Week Sj Pinto Chi, MD [Primary Care Provider] - Within 2 Weeks Disposition Disposition (needs filled in before D/C Order can be placed): Home Health Service Charges/Coding Visit Charges Inpatient E&M: 74691 Disch Hosp >30min
--- NOTE | 2023-05-07 09:47 | CASEMGMT ---
DC household assistant set up appt for tomorrow for pt. TC to Whit at [facility], she is aware that pt does not want/able to take pt in for an appt tomorrow but will in two weeks.She states she will call to to see if he will follow with the scheduled appt. DC household assistant to cancel appt for tomorrow and reschedule for two weeks and notify pt/ as well as Whit.
--- NOTE | 2023-05-07 10:42 | CASEMGMT ---
Discharge Planning Follow up appt was scheduled w/Dr. Pinto for 05/23/23 @ 10a. Updated patients that appt will need to be kept in order for patient to receive therapy. She stated understanding. [facility] and RN CM updated. Elizabeth Dalton, Discharge Planning Asst.
== END 2023-05-05 16:05 | disposition home health service (06) | DRG 917 ==
LOC: ED 13:04 → MS3 14:55
PROVIDERS: Admitting Provider Hospitalist; Emergency Provider Emergency Medicine; PCP Family Medicine Geriatric Medicine
DX: T40.601A Poisoning by unspecified narcotics, accidental (unintentional), initial encounter (principal); G92.8 Other toxic encephalopathy; F11.23 Opioid dependence with withdrawal; I73.9 Peripheral vascular disease, unspecified; I10 Essential (primary) hypertension; E78.5 Hyperlipidemia, unspecified; F43.0 Acute stress reaction; M54.50 Low back pain, unspecified; M54.2 Cervicalgia; Z79.2 Long term (current) use of antibiotics; Z79.02 Long term (current) use of antithrombotics/antiplatelets; Z87.891 Personal history of nicotine dependence; G89.29 Other chronic pain
CPT/HCPCS: 36415; 51702; 70450; 80048; 81001; 84484; 85025; 85027; 93005; 97110; 97162; 97166; 97530; 99285; J7030; A4216; J2310; J2405

== ENCOUNTER → 2023-06-21 | Outpatient (CLI) | payer MEDICARE, SELFPAY | END | disposition home or self-care (01) | LOC: PSN 13:48 | PROVIDERS: PCP Family Medicine Geriatric Medicine; Referring Provider Family Medicine Geriatric Medicine; Visit Provider Family Medicine Geriatric Medicine | DX: R68.83 Chills (without fever) (principal) | CPT/HCPCS: 87635; 87804; 87807 ==

== ENCOUNTER 2023-07-11 01:46 | Emergency (ER) | payer MEDICARE, SELFPAY ==
[2023-07-11 01:47] VITALS: BP 150/72; PULSE 73; RESP 16; TEMP 36; O2SAT 96; BMI 26.1
--- NOTE | 2023-07-11 02:09 | EDS_ITS ---
HPI History of Present Illness Chief Complaint: Complaint Informant: patient and spouse/S.O. Narrative Narrative: 72-year-old male presenting to the emergency room with urinary retention. Patient states that this is happened to him a couple times before after surgery. He states he had a normal urine stream this morning but has not urinated since. He denies any new medications or [id number] medications. No fevers. No dysuria or hematuria. He does note a history of kidney stones. He has not had any prior bladder or prostate surgery. Non-smoker. [facility] Medical History Arthritis Chest pain Chronic pain Essential hypertension Hydronephrosis with obstructing calculus Hyperlipidemia Kidney stones Peripheral vascular disease of extremity with claudication Right bundle branch block (RBBB) Ureteral calculus, right Home Medications meloxicam 15 mg tablet 15 mg PO DAILY ARTHRITIS 09/26/16 [History Last Taken 05/08/17 08:00 15 MG] clopidogrel 75 mg tablet 75 mg PO DAILY 10/14/21 [History Last Taken Unknown] sumatriptan succinate 6 mg/0.5 mL subcutaneous pen injector 6 mg subcut DAILY PRN 10/14/21 [History Last Taken Unknown] fluoxetine 40 mg capsule 80 mg PO DAILY 05/04/23 [History Last Taken Unknown] gabapentin 300 mg capsule 300 mg PO TID 05/04/23 [History Last Taken Unknown] pantoprazole 20 mg tablet,delayed release 20 mg PO DAILY 05/04/23 [History Last Taken Unknown] acetaminophen 500 mg capsule 1,000 mg (2 x 500 mg) PO Q8H #30 caps 05/05/23 [Rx Last Taken Unknown] dicyclomine 10 mg capsule 20 mg (2 x 10 mg) PO Q6H PRN PRN Abdominal Discomfort 3 days #12 caps 05/05/23 [Rx Last Taken Unknown] albuterol sulfate 90 mcg/actuation aerosol inhaler 2 puff inhalation Q4H PRN sob 07/11/23 [History Last Taken Unknown] Allergy/AdvReac Type Severity Reaction Status Date / Time codeine Allergy AFFECTED Verified 07/11/23 01:50 BREATHING prednisone AdvReac Other Verified 07/11/23 01:50 Family History Father Hyperlipidemia Surgical History H/O arthroscopic knee surgery H/O excision of lamina of cervical vertebra for decompression of spinal cord History of appendectomy History of colonoscopy History of hemorrhoidectomy History of left knee replacement History of lumbar laminectomy History of repair of rotator cuff History of tonsillectomy Social History Smoking Status: Former smoker quit date: 09/17/81 pack-years: 19 ROS ROS ED Constitutional Constitutional ED: Denies chills or weight loss Eyes Eyes: Denies change in vision or diplopia ENT ENT ED: Denies ear pain, rhinorrhea or sore throat Cardiovascular Cardiovascular: Denies chest pain, orthopnea, palpitations or racing heartbeat Respiratory/Chest Respiratory/Chest: Denies cough, dyspnea or orthopnea Gastrointestinal Gastrointestinal: Denies abdominal pain, diarrhea, nausea or vomiting Genitourinary Genitourinary ED: Reports other Details: Urinary retention ; Denies dysuria, hematuria or urinary frequency Musculoskeletal Musculoskeletal: Denies arthralgias or myalgias Integumentary Denies abscess or rash Neurologic Neurologic: Denies headache(s) or weakness Psychiatric Psychiatric: Denies anxiety, depression, suicidal ideation or suicidal thoughts Endocrine Endocrinology: Denies polydipsia, polyphagia or polyuria Allergic/Immunologic Allergic/Immunologic ED: Denies mouth swelling, tongue swelling or urticaria EXAM Physical Exam Const Vital Signs: 07/11/23 01:47 Temperature 96.8 F L Temperature Source Temporal Pulse Rate 73 Respiratory Rate 16 Blood Pressure 150/72 H Blood Pressure Mean 98 Pulse Ox 96 Oxygen Delivery Method Room Air Positive well nourished and well developed General Appearance ED: well developed HEENT Reports normocephalic, head/scalp atraumatic and moist mucous membranes Eyes PERRL and EOMs intact bilaterally Neck no lymphadenopathy, supple and no JVD Resp normal respiratory effort and clear to auscultation bilaterally Cardio regular rate, regular rhythm and no murmurs GI normal to inspection, nondistended, normoactive bowel sounds GI Narrative: Tender to palpation in the suprapubic region slightly distended bladder palpated Palpation: soft Back/Spine no CVA tenderness and normal ROM Extremity normal to inspection General Extremety ED: Negative for edema General Extremity: Negative for edema Neuro oriented x3 and CN's II-XII intact bilaterally Sensorium / Orientation: alert Motor Exam: strength 5/5 throughout Psych mental status grossly normal Mood & Affect: Negative for depressed or tearful Skin no rashes or lesions noted and no wounds MDM MDM MDM Narrative Medical decision making narrative: Nursing placed a Cintron catheter without any difficulty. Standard 16 [place]raini size was used. Urinalysis was negative. Approximately 700 cc was removed. Patient was given follow-up with urology would recommend there evaluation. Patient return if worsening or concerns Lab Data Labs: Laboratory Results - last 24 hr 07/11/23 02:20 Urine Color Yellow Urine Clarity Clear Urine pH 6.0 Ur Specific [place] 1.020 Urine Protein 15 H Urine Glucose (UA) Normal Urine Ketones Negative Urine Occult Blood 10 H Urine Nitrite Negative Urine Bilirubin Negative Urine Urobilinogen Normal Ur Leukocyte Esterase 25 H Urine RBC 0 SEEN Urine WBC 0 SEEN Ur Squamous Epith Cells 0 SEEN Urine Bacteria 0 SEEN Urine Mucus 0 SEEN Discharge Plan Triage Chief Complaint: Complaint ED Provider: Adam Siegel Dx/Rx/DC Orders Clinical Impression: Acute urinary retention, Abdominal pain Instructions: ED Cintron Catheter, Care, ED Urinary Retention, Male Prescriptions: No Action clopidogrel 75 mg tablet 75 mg PO DAILY sumatriptan succinate 6 mg/0.5 mL pen injector 6 mg subcut DAILY PRN Patient Comments: INJECT 6 Milligrams subcutaneously once per day for 30 days NEEDED for headache meloxicam 15 MG tablet 15 mg PO DAILY albuterol sulfate 90 mcg/actuation HFA aerosol inhaler 2 puff INHALATION Q4H PRN Patient Comments: INHALE 2 (TWO) puffs BY MOUTH EVERY 4 HOURS NEEDED fluoxetine 40 mg capsule 80 mg PO DAILY Patient Comments: TAKE 2 CAPSULES BY MOUTH ONCE DAILY FOR 90 DAYS pantoprazole 20 mg tablet,delayed release (DR/EC) 20 mg PO DAILY Patient Comments: TAKE 1 TABLET BY MOUTH ONCE DAILY gabapentin 300 mg capsule 300 mg PO TID Patient Comments: Take one capsule by mouth three times a day. dicyclomine 10 mg Capsule 20 mg PO Q6H PRN PRN (Reason: Abdominal Discomfort) 3 Days Qty: 12 0RF acetaminophen 500 mg capsule 1,000 mg PO Q8H Qty: 30 0RF Primary Care Provider: Sj Pinto Chi Referrals: Jules Fang MD [Med Staff - Active Staff] - 3-5 Days Sj Pinto Chi, MD [Primary Care Provider] -
[2023-07-11 02:29] LABS: Bacteria 0 SEEN /hpf (None Seen); Mucous, Urine 0 SEEN /hpf (<or=2+); Red Blood Cells-Urine 0 SEEN /hpf (0-5); Squamous Epithelial Cells - UA 0 SEEN /hpf (0-5); White Blood Cells 0 SEEN /hpf (0-5)
[2023-07-11 02:30] LABS: Color, Urine Yellow (Yellow); Glucose, Dipstick Normal (Normal); Ketone-Dipstick Negative (Negative); Leukocyte Esterase-Dipstick 25 /ul (Negative); Nitrite-Dipstick Negative (Negative); Occult Blood-Urine 10 /ul (Negative); Protein-Dipstick 15 mg/dl (Negative); Urine Bilirubin Dipstick Negative (Negative); Urine Clarity Clear (Clear); Urine Urobilinogen Normal (Normal)
[2023-07-11 03:20] VITALS: BP 160/75; PULSE 78; RESP 12; O2SAT 98
== END 2023-07-11 03:21 | disposition home or self-care (01) ==
LOC: ED 02:36
PROVIDERS: Emergency Provider Emergency Medicine; PCP Family Medicine Geriatric Medicine; Visit Provider Emergency Medicine
DX: R10.9 Unspecified abdominal pain (principal); R33.9 Retention of urine, unspecified; I10 Essential (primary) hypertension; Z87.891 Personal history of nicotine dependence; E78.5 Hyperlipidemia, unspecified; M19.90 Unspecified osteoarthritis, unspecified site; Z79.02 Long term (current) use of antithrombotics/antiplatelets; Z90.49 Acquired absence of other specified parts of digestive tract; Z96.652 Presence of left artificial knee joint
CPT/HCPCS: 51702; 81001; 99283

== ENCOUNTER → 2023-08-06 | Outpatient (CLI) | payer MEDICARE, SELFPAY ==
[2023-08-06 14:54] LABS: Absolute Lymphocyte Count 1.62 X10^3/uL (0.83-4.51); Basophil# 0.04 X10^3/uL; Basophil% 0.5 % (0-1); Eosinophil# 0.27 X10^3/uL; Eosinophils% 3.5 % (0-5); Hematocrit 39.3 % (40-54); Hemoglobin 12.2 g/dL (13.0-16.5); Lymphocyte # 1.62 X10^3/ul (0.83-4.51); Lymphocyte % 21.1 % (19-41); Mean Corpuscular Hgb 30.3 pg (27.0-32.0); Mean Corpuscular Volume 97.5 fL (80-94); Mean Platelet Vol. 11.3 fl (6.2-12.0); Monocyte# 0.68 X10^3/uL; Monocyte% 8.9 % (0-10); NRBC Flagged by Analyzer 0 % (0-5); Neutrophil # 5.03 X10^3/uL (2.7-7.7); Neutrophil % 65.5 % (47-70); Platelet Count 233 K/mm3 (150-450); RBC Distribution Width CV 13.2 % (11.6-14.6); RBC Distribution Width SD 47.8 fl (35.1-43.9); Red Blood Count 4.03 M/mm3 (4.6-6.2); White Blood Count 7.7 K/mm3 (4.4-11.0)
[2023-08-06 15:06] LABS: Vitamin D,25 Hydroxy 32.9 ng/mL
[2023-08-06 15:10] LABS: BNP,B-Type NATRIURETIC PEPTIDE 83.2 pg/mL (0-100)
[2023-08-06 15:19] LABS: ALB/GLOB Ratio 0.9 RATIO (0.9-2.4); AST(SGOT) 17 U/L (15-37); Alanine Aminotransfer ALT/SGPT 24 U/L (16-61); Albumin, Serum 3.3 g/dL (3.2-5.0); Alkaline Phosphatase 128 U/L (45-117); Anion Gap 8 (5-15); BUN 15 mg/dL (7-18); BUN/Creat Ratio 15.8 RATIO (10-20); Calcium,Total 8.2 mg/dL (8.5-10.1); Chloride 108 mmol/L (98-107); Creatinine, Serum 0.95 mg/dL (0.70-1.30); EST Glomerular Filtration Rate 83 mL/min (>60); Est Glom Filt Rate - Afr Amer 100 mL/min (>60); Globulin 3.5 g/dL (2.2-4.2); Glucose 124 mg/dL (74-106); Potassium 3.8 mmol/L (3.5-5.1); Protein, Total 6.8 g/dL (6.4-8.2); Sodium Level 140 mmol/L (136-145); Thyroid Stim Hormone (TSH) 1.94 uIU/mL (0.358-3.74)
== END | disposition home or self-care (01) ==
LOC: POLAB3 13:34
PROVIDERS: PCP Family Medicine Geriatric Medicine; Visit Provider Family Medicine Geriatric Medicine
DX: I10 Essential (primary) hypertension (principal); E55.9 Vitamin D deficiency, unspecified; R06.2 Wheezing
CPT/HCPCS: 36415; 80053; 82306; 83880; 84443; 85025

== ENCOUNTER → 2023-08-07 | Outpatient (CLI) | payer MEDICARE, SELFPAY ==
--- NOTE | 2023-08-07 08:47 | AAVD_ITS ---
Reason For Study: Atherosclerosis Aorta Measurements Aorta Doppler Measurements Proximal aorta measures1.79 x 1.88cm. in cross- Peak systolic flow velocities within the proximal sectional axis. aorta measure 112.2 cm/sec. Proximal aorta measures1.83cm. in longitudinal Peak systolic flow velocities within the mid aorta axis. measure 79.6 cm/sec. Mid aorta measures1.75 x 1.78cm. in cross- Peak systolic flow velocities within the distal sectional axis. aorta measure 99.5 cm/sec. Mid aorta measures1.67cm. in longitudinal axis. Distal aorta measures1.15 x 1.15cm. in cross- sectional axis. Distal aorta measures1.17cm. in longitudinal axis. Left Iliac Artery Left iliac artery measures 0.72 x 0.77 cm. in the cross-sectional axis. Left iliac artery measures 0.82 cm. in the longitudinal axis. Peak systolic velocity in the left iliac artery measures 155.2 cm/sec. Right Iliac Artery Right iliac artery measures 0.77 x 0.74 cm. in the cross-sectional axis. Right iliac artery measures 0.78 cm. in the longitudinal axis. Peak systolic velocity in the right iliac artery measures 191.6 cm/sec. Procedure Aorta IVC Iliac vasculature or bypass grafts [id number]. Exam performed in department. VL/Abd Aortic/IVC Duplex scan Interpretation Summary Noaortoiliac aneurysm or stenosis noted. Ordering Physician: Sterling Gardner Referring Physician: Sj Pinto Chi Performed By: Shelly Hathaway RVT
--- NOTE | 2023-08-07 08:47 | ART_ITS ---
Reason For Study: Atherosclerosis Procedure A bilateral lower extremity continuous wave Doppler with analog waveform analysis and ankle brachial indexes. Left Segmental Pressures Left brachial= 153mmHg. Left posterior tibial artery = 177mmHg. Left dorsalis pedis artery = 165mmHg. The left dorsalis pedis waveforms are triphasic. The left posterior tibial artery waveforms are triphasic. Right Segmental Pressures Right brachial= 144mmHg. Right posterior tibial artery = 178mmHg. Right dorsalis pedis artery = 156mmHg. The right dorsalis pedis waveforms are triphasic. The right posterior tibial artery waveforms are triphasic. Indices The right ankle brachial index by the dorsalis pedis is 1.02. The right ankle brachial index by the posterior tibial artery is 1.16. The left ankle brachial index by the dorsalis pedis is 1.16. VL/Ankle Brachial Index Interpretation Summary Nodisease noted legs at rest with triphasic flow and IVAN 1.16 and 1.16. Ordering Physician: Sterling Gardner Referring Physician: Sj Pinto Chi Performed By: Shelly Hathaway RVT
== END | disposition home or self-care (01) ==
LOC: CVS 08:45
PROVIDERS: PCP Family Medicine Geriatric Medicine; Referring Provider Surgery Vascular Surgery; Visit Provider Surgery Vascular Surgery
DX: I74.09 Other arterial embolism and thrombosis of abdominal aorta (principal); I70.213 Atherosclerosis of native arteries of extremities with intermittent claudication, bilateral legs; Z48.812 Encounter for surgical aftercare following surgery on the circulatory system
CPT/HCPCS: 93922; 93978

== ENCOUNTER → 2023-09-04 | Outpatient (CLI) | payer MEDICARE, SELFPAY ==
[2023-09-04 17:55] LABS: Absolute Lymphocyte Count 1.62 X10^3/uL (0.83-4.51); Absolute Neutrophil Count 5.2 X10^3/uL (2.0-7.7); Basophil# 0.05 X10^3/uL; Basophil% 0.6 % (0-1); Eosinophil# 0.39 X10^3/uL; Hematocrit 38.8 % (40-54); Hemoglobin 12.2 g/dL (13.0-16.5); Lymphocyte # 1.62 X10^3/ul (0.83-4.51); Lymphocyte % 20.7 % (19-41); Mean Corp Hgb Conc 31.4 g/dL (32-36); Mean Corpuscular Hgb 30.3 pg (27.0-32.0); Mean Corpuscular Volume 96.5 fL (80-94); Mean Platelet Vol. 10.8 fl (6.2-12.0); Monocyte% 7.7 % (0-10); NRBC Flagged by Analyzer 0 % (0-5); Neutrophil # 5.15 X10^3/uL (2.7-7.7); Neutrophil % 65.6 % (47-70); Platelet Count 220 K/mm3 (150-450); RBC Distribution Width CV 13.1 % (11.6-14.6); RBC Distribution Width SD 46.9 fl (35.1-43.9); Red Blood Count 4.02 M/mm3 (4.6-6.2); White Blood Count 7.8 K/mm3 (4.4-11.0)
[2023-09-04 18:12] LABS: BNP,B-Type NATRIURETIC PEPTIDE 100.9 pg/mL (0-100)
[2023-09-04 18:14] LABS: AST(SGOT) 18 U/L (15-37); Alanine Aminotransfer ALT/SGPT 22 U/L (16-61); Albumin, Serum 3.5 g/dL (3.2-5.0); Alkaline Phosphatase 122 U/L (45-117); Anion Gap 2 (5-15); BUN 15 mg/dL (7-18); BUN/Creat Ratio 14.2 RATIO (10-20); Calcium,Total 8.9 mg/dL (8.5-10.1); Chloride 107 mmol/L (98-107); Creatinine, Serum 1.06 mg/dL (0.70-1.30); EST Glomerular Filtration Rate 72 mL/min (>60); Est Glom Filt Rate - Afr Amer 88 mL/min (>60); Globulin 3.4 g/dL (2.2-4.2); Glucose 100 mg/dL (74-106); Potassium 4.8 mmol/L (3.5-5.1); Protein, Total 6.9 g/dL (6.4-8.2); Sodium Level 139 mmol/L (136-145)
== END | disposition home or self-care (01) ==
LOC: POLAB3 17:19
PROVIDERS: PCP Family Medicine Geriatric Medicine; Visit Provider Family Medicine Geriatric Medicine
DX: R53.83 Other fatigue (principal); R06.02 Shortness of breath
CPT/HCPCS: 36415; 80053; 83880; 85025

== ENCOUNTER → 2023-10-04 | Outpatient (CLI) | payer MEDICARE, SELFPAY ==
--- OUTSIDE RECORDS SUMMARY | 2023-10-04 17:10 | XMS RPT_ITS | CCD ---
Author Name Unknown Address [address] [place] [address] Organization [facility] Care Team Providers Care Helicopter Repairer Name Role Phone ORLANDO WORKMAN Unavailable Unavailable SCANTLINGJULI K Unavailable Unavailable RHETT, KAMAL Unavailable Unavailable SATYAN, JANEY B Unavailable Unavailable DUMFORD III, MARGARET Unavailable Unavailable SATYAN, JANEY B Unavailable Unavailable SATYAN, JANEY B Unavailable Unavailable KEITH, PEPE-CHI Unavailable Unavailable SATYAN, JANEY B Unavailable Unavailable KEITH, PEPE-CHI Unavailable Unavailable SATYAN, JANEY B Unavailable Unavailable KEITH, PEPE-CHI Unavailable Unavailable SATYAN, JANEY BINDIGANAVALE Unavailable Un available SATYAN, JANEY BINDIGANAVALE Unavailable Un available JI MIN Unavailable Unavailable KAMAL, RHETT Unavailable Unavailable DUMFORD, MARGARET M Unavailable Unavailable SATYAN, JANEY BINDIGANAVALE Unavailable Un available SATYAN, JANEY BINDIGANAVALE Unavailable Un available Unavailable Primary Care Provider Unavailabl e Unavailable Primary Care Provider Unavailabl e Allergies Allergy Classification Reported Allergen(s) Allergy Type Date of Onset Reaction(s) Facility (2 sources) codeine; Translations: [CODEINE] Drug Allergy 06-27-2017 [facility] Repository (2 sources) predniSONE; Translations: [PREDNISONE] Drug Allergy 06-27-2017 [facility] Repository Medications Current Medications Medication Drug Class(es) Dates Sig (Normalized) Sig (Original) famotidine 40 mg oral tablet (1 source) Histamine-2 Receptor Antagonist Start: 10-05-2019 take 1 tablet by mouth once daily famotidine (PEPCID) 40 MG tablet Take 40 mg by mouth daily 0 10/05/2019 Active FLUoxetine 40 mg oral capsule (1 source) Serotonin Reuptake Inhibitor Start: 10-05-2019 take 1 capsule by mouth once daily FLUoxetine (PROZAC) 40 MG capsule Take 40 mg by mouth daily 0 10/05/2019 Active gabapentin 300 mg oral capsule (1 source) Anti-epileptic Agent Start: 09-15-2019 take 1 capsule by mouth twice daily gabapentin (NEURONTIN) 300 MG capsule Take 300 mg by mouth 2 times daily. 0 09/15/2019 Active meloxicam 15 mg oral tablet (1 source) Nonsteroidal Anti-inflammatory Drug Start: 08-11-2019 take 1 tablet by mouth once daily meloxicam (MOBIC) 15 MG tablet Take 15 mg by mouth daily 0 08/11/2019 Active morphine sulfate 15 mg oral tablet (1 source) Opioid Agonist take 1 tablet by mouth twice daily morphine (MSIR) 15 MG tablet Take 15 mg by mouth 2 times daily. 0 Active 1000 ml sodium chloride 9 mg/ml injection (2 sources) Start: 10-28-2019 0.9 % sodium chloride infusion Problems Active Problems Problem Classification Problem Date Documented Da te Episodic/Chronic Other nervous system disorders (2 sources) Disease of spinal cord, unspecified; Translations: [Disease of spinal cord, unspecified] Onset: 06-27-2017 Chronic Spondylosis; intervertebral disc disorders; other back problems (1 source) Other spondylosis with myelopathy, cervical region; Translations: [Other spondylosis with myelopathy, cervical region] Onset: 10-08-2017 Chronic Syncope (1 source) Near syncope Episodic Unclassified (1 source) Unknown / UNK(Unknown) Onset: 06-27-2017 Past or Other Problems Problem Classification Problem Date Documented Da te Episodic/Chronic Spondylosis; intervertebral disc disorders; other back problems (1 source) Neck pain Episodic Results Test Name Value Interpretation Reference Range Facil ity Vital Signs Date Time Vital Sign Value Performing Clinician Faci lity 10-28-2019 15:37-0500 BP Diastolic 69 mm[Hg] [facility] [employer] Work Phone: 10-28-2019 15:37-0500 BP Systolic 139 mm[Hg] Ricky [facility] [employer] Work Phone: 10-28-2019 15:37-0500 Pulse (Heart Rate) 65 /min Ricky [facility] [employer] Work Phone: 10-28-2019 15:37-0500 Pulse Oximetry 96 % [facility] [employer] Work Phone: 10-28-2019 15:37-0500 Respiratory Rate 14 /min Ricky CANDELARIO Work Phone: 10-28-2019 12:32-0500 BMI (Body Mass Index) 24.96 kg/m2 Ricky CANDELARIO Work Phone: 10-28-2019 12:32-0500 Body Temperature 97.81 [degF] Ricky CANDELARIO Work Phone: 10-28-2019 12:32-0500 Body weight 68.04 kg Ricky CANDELARIO Work Phone: 10-28-2019 12:32-0500 Height 165.1 cm Ricky CANDELARIO Work Phone: Encounters Encounter Date Encounter Type Care Provider Facility Start: 10-28-2019 End: 10-28-2019 Emergency department patient visit Ricky Rowley Work Phone: [facility] Emergency Dept Procedures Date Procedure Procedure Detail Performing Clinician Start: 09-13-2021 Ecg routine ecg w/le ast 12 lds i&r only Start: 10-28-2019 Gluc bld gluc mntr d ev cleared fda spec home use Ricky Rowley Work Phone: Start: 10-28-2019 Radiologic exam ches t single view Ricky Rowley Work Phone: Start: 10-28-2019 Ct head/brain w/o co ntrast material Ricky Rowley Work Phone: Start: 10-28-2019 Assay of magnesium Aust alicia Rowley Work Phone: Start: 10-28-2019 Assay of troponin quantitative Ricky Rowley Work Phone: Start: 10-28-2019 Blood count complete auto&auto difrntl wbc Ricky Rowley Work Phone: Start: 10-28-2019 Prothrombin time Ricky Rowley Work Phone: Start: 10-28-2019 Thromboplastin time partial plasma/whole blood Ricky Rowley Work Phone: Start: 10-28-2019 Ecg routine ecg w/le ast 12 lds w/i&r Ricky Rowley Work Phone: Start: 10-16-2019 Radex spine cervical 4 or 5 views Alex Wren MD Work Phone: Plan of Treatment Date Care Activity Detail Author Start: 11-20-2019 End: 11-20-2019 Office Visit 11/20/2019 Office Visit Orthopedic Surgery Alex Wren MD [address] [facility] [address] [place], [place] [id number] [facility] [place] Start: 05-18-2019 Influenza vaccination Flu vaccine (#1) [facility] Work Phone: Start: 2013 Pneumococcal 65+ years Vaccine (1 of 1 - PPSV23) Pneumococcal 65+ years Vaccine (1 of 1 - PPSV23) [facility] Work Phone: Start: 1998 Colon cancer screen colonoscopy Colon cancer screen colonoscopy [facility] Work Phone: Start: 1998 Shingles Vaccine (1 of 2) Shingles Vaccine (1 of 2) [facility] Work Phone: Start: 1988 Lipid screen Lipid screen [facility] Work Phone: Start: 1959 DTaP/Tdap/Td vaccine (1 - Tdap) DTaP/Tdap/Td vaccine (1 - Tdap) [facility] Work Phone: Start: 1948 Hepatitis C screen Hepatitis C screen [facility] Work Phone: EKG 12 Lead if not already done by squad EKG 12 Lead if not already done by squad ECG STAT 10/28/2019 12:27 PM EST [facility] Work Phone: Initiate Oxygen Ther apy Protocol Initiate Oxygen Therapy Protocol Respiratory Care Routine Daily until discontinued starting 10/28/2019 [facility] Work Phone: Payers Date Payer Category Payer Medicare MEDICARE MEDICAR E PART A AND B xxxxxxxxxxx 2019-Present [phone] [place] [address] xxxxxxxxxxx [id number] 2019 Unknown BCBS [place]BS - [place] P PO xxxxxxxxxxxx 2019-Present [address] [place] [address] xxxxxxxxxxxx [id number] Medicare [id number] Unknown [id number] Social History Date Type Detail Facility Start: 10-28-2019 Tobacco smoking stat [facility] Never smoker [employer] Work Phone: Start: 10-28-2019 Alcohol intake Lifetime non-d shelly (finding) [facility] Work Phone: Start: 10-28-2019 History SDOH Alcohol Frequency 1 [employer] Work Phone: Sex Assigned At Not on file [employer] Work Phone: Evaluation note Note Date & Type Note Facility documented in this encounter [employer] Work Phone: Summary Purpose Family History No Family History Records FoundNo Family History Records FoundNo Family History Records FoundNo Family History Records Found Advance Directives Documents on File Type Date Recorded 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 * Lightheadedness or Faintness (Bulgarian) documented in this encounter Assessments Diagnosis Near syncope- Primary Syncope and collapse Additional Source Comments (unrecognized sect ion and content) No Status Records FoundNo Status Records FoundNo Status Records FoundNo Status Records Found INFORMATION SOURCE (unrecogn ized section and content) DATE CREATED AUTHOR AUTHOR'S ORGANIZ ATION 05/13/2018 [facility] DATE CREATED AUTHOR AUTHOR'S ORGANIZ ATION 12/16/2019 [facility] DATE CREATED AUTHOR AUTHOR'S ORGANIZ ATION 09/24/2021 [facility] Ce nfetali Ayoub Reason for Visit (unrecogniz ed section and content) FOR RECORDS PERTAINING TO PATIENTS WHO ARE OR HAVE BEEN ENROLLED IN A CHEMICAL DEPENDENCY/SUBSTANCEABUSE PROGRAM, SOME INFORMATION MAY BE OMITTED. This clinical summary was aggregated from multiple sources. Caution should be exercised in using it in the provision of clinical care. This summary normalizes information from multiple sources, and as a consequence, information in this document may materially change the coding, format and clinical context of patient data. In addition, data may be omitted in some cases. CLINICAL DECISIONS SHOULD BE BASED ON THE PRIMARY CLINICAL RECORDS. [facility] [employer] [facility]. provides no warranty or guarantee of the accuracy or completeness of information in this document.
[2023-10-04 17:24] LABS: Absolute Lymphocyte Count 2.86 X10^3/uL (0.83-4.51); Absolute Neutrophil Count 4.4 X10^3/uL (2.0-7.7); Basophil# 0.06 X10^3/uL; Basophil% 0.7 % (0-1); Eosinophil# 0.52 X10^3/uL; Eosinophils% 5.9 % (0-5); Hematocrit 42.1 % (40-54); Lymphocyte # 2.86 X10^3/ul (0.83-4.51); Lymphocyte % 32.4 % (19-41); Mean Corp Hgb Conc 30.9 g/dL (32-36); Mean Corpuscular Hgb 29.5 pg (27.0-32.0); Mean Corpuscular Volume 95.7 fL (80-94); Mean Platelet Vol. 11.4 fl (6.2-12.0); Monocyte# 0.97 X10^3/uL; NRBC Flagged by Analyzer 0 % (0-5); Neutrophil # 4.39 X10^3/uL (2.7-7.7); Neutrophil % 49.5 % (47-70); Platelet Count 257 K/mm3 (150-450); RBC Distribution Width CV 13.2 % (11.6-14.6); RBC Distribution Width SD 46.9 fl (35.1-43.9); White Blood Count 8.8 K/mm3 (4.4-11.0)
[2023-10-04 17:40] LABS: Anion Gap 4 (5-15); BUN 26 mg/dL (7-18); BUN/Creat Ratio 20.6 RATIO (10-20); Calcium,Total 8.7 mg/dL (8.5-10.1); Chloride 107 mmol/L (98-107); Creatinine, Serum 1.26 mg/dL (0.70-1.30); EST Glomerular Filtration Rate 59 mL/min (>60); Est Glom Filt Rate - Afr Amer 72 mL/min (>60); Glucose 83 mg/dL (74-106); Potassium 4.4 mmol/L (3.5-5.1); Sodium Level 140 mmol/L (136-145)
== END | disposition home or self-care (01) ==
LOC: POLAB3 17:03
PROVIDERS: PCP Family Medicine Geriatric Medicine; Visit Provider Family Medicine Geriatric Medicine
DX: I10 Essential (primary) hypertension (principal); R53.83 Other fatigue
CPT/HCPCS: 36415; 80048; 85025

== ENCOUNTER → 2024-02-12 | Outpatient (CLI) | payer MEDICARE, SELFPAY ==
[2024-02-12 17:55] LABS: Absolute Lymphocyte Count 1.29 X10^3/uL (0.83-4.51); Absolute Neutrophil Count 4.7 X10^3/uL (2.0-7.7); Basophil# 0.03 X10^3/uL; Basophil% 0.4 % (0-1); Eosinophil# 0.29 X10^3/uL; Eosinophils% 4.3 % (0-5); Hematocrit 41.1 % (40-54); Hemoglobin 12.8 g/dL (13.0-16.5); Lymphocyte # 1.29 X10^3/ul (0.83-4.51); Mean Corp Hgb Conc 31.1 g/dL (32-36); Mean Corpuscular Hgb 29.9 pg (27.0-32.0); Mean Platelet Vol. 12.2 fl (6.2-12.0); Monocyte# 0.47 X10^3/uL; Monocyte% 6.9 % (0-10); NRBC Flagged by Analyzer 0 % (0-5); Neutrophil # 4.67 X10^3/uL (2.7-7.7); Platelet Count 192 K/mm3 (150-450); RBC Distribution Width CV 13.1 % (11.6-14.6); RBC Distribution Width SD 46.5 fl (35.1-43.9); Red Blood Count 4.28 M/mm3 (4.6-6.2); White Blood Count 6.8 K/mm3 (4.4-11.0)
[2024-02-12 18:28] LABS: Vitamin D,25 Hydroxy 34.3 ng/mL
[2024-02-12 18:40] LABS: ALB/GLOB Ratio 1.1 RATIO (0.9-2.4); AST(SGOT) 17 U/L (15-37); Alanine Aminotransfer ALT/SGPT 21 U/L (16-61); Albumin, Serum 3.6 g/dL (3.2-5.0); Alkaline Phosphatase 132 U/L (45-117); Anion Gap 6 (5-15); BUN 25 mg/dL (7-18); BUN/Creat Ratio 23.4 RATIO (10-20); Calcium,Total 8.8 mg/dL (8.5-10.1); Chloride 108 mmol/L (98-107); Creatinine, Serum 1.07 mg/dL (0.70-1.30); EST Glomerular Filtration Rate 72 mL/min (>60); Est Glom Filt Rate - Afr Amer 87 mL/min (>60); Globulin 3.4 g/dL (2.2-4.2); Glucose 103 mg/dL (74-106); Potassium 4.3 mmol/L (3.5-5.1); Sodium Level 138 mmol/L (136-145); Thyroid Stim Hormone (TSH) 0.96 uIU/mL (0.358-3.74)
== END | disposition home or self-care (01) ==
LOC: LAB 16:38
PROVIDERS: PCP Family Medicine Geriatric Medicine; Referring Provider Family Medicine Geriatric Medicine; Visit Provider Family Medicine Geriatric Medicine
DX: I10 Essential (primary) hypertension (principal); E55.9 Vitamin D deficiency, unspecified
CPT/HCPCS: 36415; 80053; 82306; 84443; 85025

== ENCOUNTER → 2024-02-22 | Outpatient (CLI) | payer MEDICARE, SELFPAY ==
[2024-02-22 13:44] LABS: Anion Gap 9 (5-15); BUN 25 mg/dL (7-18); BUN/Creat Ratio 17.5 RATIO (10-20); Chloride 100 mmol/L (98-107); Creatinine, Serum 1.43 mg/dL (0.70-1.30); EST Glomerular Filtration Rate 51 mL/min (>60); Est Glom Filt Rate - Afr Amer 62 mL/min (>60); Glucose 142 mg/dL (74-106); Potassium 3.3 mmol/L (3.5-5.1); Sodium Level 137 mmol/L (136-145)
== END | disposition home or self-care (01) ==
LOC: LAB 12:33
PROVIDERS: PCP Family Medicine Geriatric Medicine; Referring Provider Family Medicine Geriatric Medicine; Visit Provider Family Medicine Geriatric Medicine
DX: E78.5 Hyperlipidemia, unspecified (principal)
CPT/HCPCS: 36415; 80048

== ENCOUNTER → 2024-03-03 | Outpatient (CLI) | payer MEDICARE, SELFPAY ==
[2024-03-03 19:29] LABS: Anion Gap 5 (5-15); BUN 20 mg/dL (7-18); BUN/Creat Ratio 20.5 RATIO (10-20); Chloride 105 mmol/L (98-107); Creatinine, Serum 0.98 mg/dL (0.70-1.30); EST Glomerular Filtration Rate 79 mL/min (>60); Est Glom Filt Rate - Afr Amer 96 mL/min (>60); Glucose 113 mg/dL (74-106); Potassium 4.2 mmol/L (3.5-5.1); Sodium Level 138 mmol/L (136-145)
== END | disposition home or self-care (01) ==
LOC: LAB 14:43
PROVIDERS: PCP Family Medicine Geriatric Medicine; Visit Provider Family Medicine Geriatric Medicine
DX: E78.5 Hyperlipidemia, unspecified (principal)
CPT/HCPCS: 36415; 80048

== ENCOUNTER → 2024-08-07 | Outpatient (CLI) | payer MEDICARE, SELFPAY ==
[2024-08-07 13:54] LABS: Absolute Lymphocyte Count 1.69 X10^3/uL (0.83-4.51); Absolute Neutrophil Count 5.5 X10^3/uL (2.0-7.7); Basophil% 0.5 % (0-1); Eosinophil# 0.35 X10^3/uL; Eosinophils% 4.2 % (0-5); Hemoglobin 13.3 g/dL (13.0-16.5); Lymphocyte # 1.69 X10^3/ul (0.83-4.51); Lymphocyte % 20.2 % (19-41); Mean Corp Hgb Conc 32.4 g/dL (32-36); Mean Corpuscular Hgb 31.7 pg (27.0-32.0); Mean Corpuscular Volume 97.6 fL (80-94); Mean Platelet Vol. 10.6 fl (6.2-12.0); Monocyte# 0.76 X10^3/uL; Monocyte% 9.1 % (0-10); Neutrophil % 65.5 % (47-70); Platelet Count 238 K/mm3 (150-450); RBC Distribution Width CV 13.2 % (11.6-14.6); RBC Distribution Width SD 47.1 fl (35.1-43.9); White Blood Count 8.4 K/mm3 (4.4-11.0)
[2024-08-07 13:55] LABS: Basophil# 0.04 X10^3/uL; NRBC Flagged by Analyzer 0 % (0-5)
[2024-08-07 14:22] LABS: Vitamin D,25 Hydroxy 29.3 ng/mL
[2024-08-07 14:29] LABS: ALB/GLOB Ratio 1.2 RATIO (0.9-2.4); AST(SGOT) 14 U/L (15-37); Alanine Aminotransfer ALT/SGPT 24 U/L (16-61); Albumin, Serum 3.7 g/dL (3.2-5.0); Alkaline Phosphatase 130 U/L (45-117); Anion Gap 3 (5-15); BUN 22 mg/dL (7-18); BUN/Creat Ratio 22.5 RATIO (10-20); Calcium,Total 8.8 mg/dL (8.5-10.1); Chloride 106 mmol/L (98-107); Creatinine, Serum 0.98 mg/dL (0.70-1.30); EST Glomerular Filtration Rate 79 mL/min (>60); Est Glom Filt Rate - Afr Amer 96 mL/min (>60); Globulin 3.1 g/dL (2.2-4.2); Glucose 94 mg/dL (74-106); Potassium 3.9 mmol/L (3.5-5.1); Protein, Total 6.8 g/dL (6.4-8.2); Sodium Level 140 mmol/L (136-145)
== END | disposition home or self-care (01) ==
LOC: POLAB3 13:43
PROVIDERS: PCP Family Medicine Geriatric Medicine; Visit Provider Family Medicine Geriatric Medicine
DX: I10 Essential (primary) hypertension (principal); E55.9 Vitamin D deficiency, unspecified
CPT/HCPCS: 36415; 80053; 82306; 84443; 85025

== ENCOUNTER → 2024-10-13 | Outpatient (CLI) | payer MEDICARE, SELFPAY | END | disposition home or self-care (01) | LOC: POLAB3 16:08 | PROVIDERS: PCP Family Medicine Geriatric Medicine; Visit Provider Family Medicine Geriatric Medicine | DX: R68.83 Chills (without fever) (principal) | CPT/HCPCS: 87631 ==

== ENCOUNTER → 2024-11-26 | Outpatient (CLI) | payer MEDICARE, SELFPAY ==
--- NOTE | 2024-11-26 08:52 | AAVD_ITS ---
Reason For Study Reason For Study: Atherosclerosis Aorta Measurements Aorta Doppler Measurements Proximal aorta measures1.87 x 1.82cm. in cross-sectional Peak systolic flow velocities within the proximal aorta axis. measure 65.1 cm/sec. Proximal aorta measures1.89cm. in longitudinal axis. Peak systolic flow velocities within the mid aorta measure Mid aorta measures1.42 x 1.42cm. in cross-sectional axis. 77.7 cm/sec. Mid aorta measures1.44cm. in longitudinal axis. Peak systolic flow velocities within the distal aorta Distal aorta measures1.46 x 1.41cm. in cross-sectional axis.measure 157.8 cm/sec. Distal aorta measures1.37cm. in longitudinal axis. Left Iliac Artery Left iliac artery measures 0.88 x 0.92 cm. in the cross-sectional axis. Left iliac artery measures 0.87 cm. in the longitudinal axis. Peak systolic velocity in the left iliac artery measures 152.6 cm/sec. Right Iliac Artery Right iliac artery measures 0.75 x 0.80 cm. in the cross-sectional axis. Right iliac artery measures 0.81 cm. in the longitudinal axis. Peak systolic velocity in the right iliac artery measures 163 cm/sec. Procedure Aorta IVC Iliac vasculature or bypass grafts [id number]. Exam performed in department. VL/Abd Aortic/IVC Duplex scan Interpretation Summary No aortoiliac aneurysm or stenosis. Ordering Physician: Sterling Gardner Referring Physician: Sj Pinto Chi Performed By: Shelly Hathaway RVT
--- NOTE | 2024-11-26 08:52 | ART_ITS ---
Reason For Study Reason For Study: Atherosclerosis Procedure A bilateral lower extremity continuous wave Doppler with analog waveform analysis and ankle brachial indexes. Left Segmental Pressures Left brachial= 135mmHg. Left posterior tibial artery = 150mmHg. Left dorsalis pedis artery = 154mmHg. Left digit = 103 mmHg. The left dorsalis pedis waveforms are triphasic. The left posterior tibial artery waveforms are triphasic. Right Segmental Pressures Right brachial= 137mmHg. Right posterior tibial artery = 164mmHg. Right dorsalis pedis artery = 135mmHg. Right digit = 101 mmHg. The right dorsalis pedis waveforms are triphasic. The right posterior tibial artery waveforms are triphasic. Indices The right ankle brachial index by the dorsalis pedis is 0.99. The right ankle brachial index by the posterior tibial artery is 1.20. The right digital-brachial index is 0.74. The left ankle brachial index by the dorsalis pedis is 1.12. The left ankle brachial index by the posterior tibial artery is 1.09. The left digital-brachial index is 0.75. VL/Ankle Brachial Index Interpretation Summary Resting ankle-brachial indices appear bilaterally normal. Ordering Physician: Sterling Gardner Referring Physician: Sj Pinto Chi Performed By: Shelly Hathaway RVT
== END | disposition home or self-care (01) ==
LOC: CVS 08:47
PROVIDERS: PCP Family Medicine Geriatric Medicine; Referring Provider Surgery Vascular Surgery; Visit Provider Surgery Vascular Surgery
DX: I74.09 Other arterial embolism and thrombosis of abdominal aorta (principal); I70.213 Atherosclerosis of native arteries of extremities with intermittent claudication, bilateral legs; Z48.812 Encounter for surgical aftercare following surgery on the circulatory system
CPT/HCPCS: 93922; 93978

== ENCOUNTER → 2025-02-17 | Outpatient (CLI) | payer MEDICARE, SELFPAY ==
[2025-02-17 15:15] LABS: Absolute Lymphocyte Count 2.15 X10^3/uL (0.83-4.51); Absolute Neutrophil Count 6.2 X10^3/uL (2.0-7.7); Basophil# 0.05 X10^3/uL; Basophil% 0.5 % (0-1); Eosinophil# 0.25 X10^3/uL; Eosinophils% 2.6 % (0-5); Hematocrit 42.2 % (40-54); Hemoglobin 13.7 g/dL (13.0-16.5); Lymphocyte # 2.15 X10^3/ul (0.83-4.51); Lymphocyte % 22.3 % (19-41); Mean Corp Hgb Conc 32.5 g/dL (32-36); Mean Corpuscular Hgb 31.1 pg (27.0-32.0); Mean Corpuscular Volume 95.7 fL (80-94); Mean Platelet Vol. 11.1 fl (6.2-12.0); Monocyte# 0.86 X10^3/uL; Monocyte% 8.9 % (0-10); NRBC Flagged by Analyzer 0 % (0-5); Neutrophil # 6.23 X10^3/uL (2.7-7.7); Neutrophil % 64.8 % (47-70); Platelet Count 235 K/mm3 (150-450); RBC Distribution Width CV 13.1 % (11.6-14.6); RBC Distribution Width SD 46.7 fl (35.1-43.9); Red Blood Count 4.41 M/mm3 (4.6-6.2); White Blood Count 9.6 K/mm3 (4.4-11.0)
[2025-02-17 15:55] LABS: Thyroid Stim Hormone (TSH) 0.781 uIU/mL (0.300-4.200); Vitamin D,25 Hydroxy 28.6 ng/mL (30-100)
[2025-02-17 16:00] LABS: ALB/GLOB Ratio 1.6 RATIO (0.9-2.4); AST(SGOT) 20 U/L (<=37); Alanine Aminotransfer ALT/SGPT 11 U/L (<=46); Albumin, Serum 4.4 g/dL (3.4-4.8); Alkaline Phosphatase 119 U/L (40-129); Anion Gap 12 (5-15); BUN 22 mg/dL (4-19); BUN/Creat Ratio 20.1 RATIO (10-20); Calcium,Total 9.3 mg/dL (7.6-11.0); Carbon Dioxide 26.3 mmol/L (21.0-32.0); Chloride 102 mmol/L (98-108); Creatinine, Serum 1.07 mg/dL (0.70-1.20); EST Glomerular Filtration Rate 72 (>60); Globulin 2.7 g/dL (2.2-4.2); Glucose 91 mg/dL (70-99); Potassium 4.6 mmol/L (3.3-5.1); Protein, Total 7.1 g/dL (5.9-8.4); Sodium Level 140 mmol/L (133-145); Total Bilirubin 0.28 mg/dL (0.00-1.30)
== END | disposition home or self-care (01) ==
LOC: LAB 14:23
PROVIDERS: PCP Family Medicine Geriatric Medicine; Referring Provider Family Medicine Geriatric Medicine; Visit Provider Family Medicine Geriatric Medicine
DX: I10 Essential (primary) hypertension (principal); E55.9 Vitamin D deficiency, unspecified
CPT/HCPCS: 36415; 80053; 82306; 84443; 85025

== ENCOUNTER → 2025-06-01 | Outpatient (CLI) | payer MEDICARE, SELFPAY ==
--- NOTE | 2025-06-01 16:00 | RAD_ITS ---
PROCEDURE: SHOULDER MIN 2 VIEWS 06/01/2025 REASON FOR EXAM: SHOULDER PAIN TECHNIQUE: Procedure Code: RADSH Modality: DX Procedure: SHOULDER MIN 2 VIEWS Laterality: Right COMPARISON: Available prior FINDINGS: Bones: Bone mineralization is preserved. There is no acute fracture. Adjacent ribcage is normal. Stable flattened appearance of the greater tuberosity of the humeral head unchanged since previous exams. Joints: Degenerative changes of the acromioclavicular and glenohumeral joint present. Stable flattened Soft tissues: Calcific tendinitis at the insertion of the supraspinatus tendon. Vascular calcifications. Other: Adjacent right ribcage and right upper lobe are normal. The patient is status post cervical fusion. RAD/Shoulder min 2 Views IMPRESSION: Stable degenerative changes of the acromioclavicular and glenohumeral joint. N o acute fracture. Calcific tendinitis. Reading Location: [id number]
== END | disposition home or self-care (01) ==
LOC: RAD 15:57
PROVIDERS: PCP Family Medicine Geriatric Medicine; Referring Provider Family Medicine Geriatric Medicine; Visit Provider Family Medicine Geriatric Medicine
DX: M25.511 Pain in right shoulder (principal)
CPT/HCPCS: 73030

== ENCOUNTER → 2025-07-14 | Outpatient (CLI) | payer MEDICARE, SELFPAY ==
--- NOTE | 2025-07-14 13:03 | MRI_ITS ---
PROCEDURE: UPPER EXT JOINT ONLY(ROUTINE) 07/14/2025 REASON FOR EXAM: PAIN, EVAL CUFF TECHNIQUE: UPPER EXT JOINT ONLY(ROUTINE) Multiplanar and multisequence images were obtained of the right shoulder without IV contrast administration. COMPARISON: COMPARISON: Shoulder radiographs from 22 June 2025 FINDINGS: Bone Marrow: Degenerative marrow signal throughout. Marginal glenoid, humeral, and acromioclavicular joint osteophytes with cystic degenerative changes of both the glenoid as well as the humeral head Effusion: Small joint effusion. Soft Tissues: T2 hyperintense, lobular anterior paralabral cyst. Labrum: Hypertrophy of the labrum with anterior, posterior, and possible superior labral tears. Ligaments and Tendons: Complete retracted tears of the supraspinatus and infraspinatus tendons with muscular edema. Retraction of tendons is greater than 3.1 cm. Additionally, the bicipital anchor is ruptured with the bicipital tendon partially dislocated out of the groove with associated increased signal. No evidence of complete or retracted tear. MRI/Upper Ext Joint Only(Routine) IMPRESSION: 1. Complete retracted tears of the supraspinatus and infraspinatus tendons wit h associated disruption of the bicipital anchor and partial dislocation of the biceps tendon. Biceps tendon findings which als o suggest tendinitis/tendinopathy. No evidence of complete or retracted tear. 2. Anterior, posterior, and possible superior labral tears with large anterior paralabral cyst. 3. Supraspinatus and infraspinatus muscle edema suggesting denervation. 4. [id number] osteoarthritic degenerative changes of the right shoulde r. Reading Location: [id number]
== END | disposition home or self-care (01) ==
PROVIDERS: PCP Family Medicine Geriatric Medicine; Referring Provider Orthopaedic Surgery Sports Medicine; Visit Provider Orthopaedic Surgery Sports Medicine
DX: M25.511 Pain in right shoulder (principal); M25.512 Pain in left shoulder
CPT/HCPCS: 73221

== ENCOUNTER → 2025-08-19 | Outpatient (CLI) | payer MEDICARE, SELFPAY ==
[2025-08-19 14:57] LABS: Hematocrit 40.7 % (40-54); Hemoglobin 12.8 g/dL (13.0-16.5); Immature Granulocytes Count 0.060 X10^3/uL (0.0-0.0); Mean Corp Hgb Conc 31.4 g/dL (32-36); Mean Corpuscular Volume 98.5 fL (80-94); Mean Platelet Vol. 11.4 fl (6.2-12.0); NRBC Flagged by Analyzer 0 % (0-5); Platelet Count 251 K/mm3 (150-450); RBC Distribution Width CV 13.1 % (11.6-14.6); RBC Distribution Width SD 46.6 fl (35.1-43.9); Red Blood Count 4.13 M/mm3 (4.6-6.2); White Blood Count 10.5 K/mm3 (4.4-11.0)
[2025-08-19 16:22] LABS: Cholesterol 273 mg/dL (<=200); Low Density Lipoprotein Calc. 198 mg/dL; Triglycerides 136 mg/dL; Very Low Density Lipoprotein 27 mg/dL (5-40); cholesterol:hdl ratio screen 5.47
[2025-08-19 16:24] LABS: AST(SGOT) 17 U/L (<=37); Alanine Aminotransfer ALT/SGPT 12 U/L (<=46); Albumin, Serum 4.1 g/dL (3.4-4.8); Alkaline Phosphatase 108 U/L (40-129); Anion Gap 14 (5-15); BUN 24 mg/dL (4-19); BUN/Creat Ratio 21.1 RATIO (10-20); Calcium,Total 8.9 mg/dL (7.6-11.0); Carbon Dioxide 23.5 mmol/L (21.0-32.0); Chloride 102 mmol/L (98-108); Globulin 2.5 g/dL (2.2-4.2); Glucose 99 mg/dL (70-99); Potassium 3.9 mmol/L (3.3-5.1)
[2025-08-19 22:17] LABS: Xtra Tube Kwok EXTRA TUBE
[2025-08-19 22:19] LABS: Xtra Tube Kwok EXTRA TUBE
== END | disposition home or self-care (01) ==
LOC: POLAB3 14:17
PROVIDERS: PCP Family Medicine Geriatric Medicine; Visit Provider Family Medicine Geriatric Medicine
DX: E55.9 Vitamin D deficiency, unspecified (principal); E78.5 Hyperlipidemia, unspecified; I10 Essential (primary) hypertension
CPT/HCPCS: 36415; 80053; 80061; 84443; 85025

== ENCOUNTER → 2025-09-03 | Outpatient (CLI) | payer MEDICARE, SELFPAY ==
--- NOTE | 2025-09-03 16:36 | RAD_ITS ---
PROCEDURE: HAND MIN 3 VIEWS 09/03/2025 REASON FOR EXAM: PAIN TECHNIQUE: Procedure Code: PAZ Modality: DX Procedure: HAND MIN 3 VIEWS COMPARISON: None FINDINGS: Degenerative changes and osteoarthritis of the 1st carpometacarpal joint. 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 No fracture or dislocation. Mild degree of soft tissue swelling. RAD/Hand Min 3 Views IMPRESSION: No fracture seen. Degenerative changes as described. Reading Location: [id number]
== END | disposition home or self-care (01) ==
LOC: RAD 16:29
PROVIDERS: PCP Family Medicine Geriatric Medicine; Referring Provider Family Medicine Geriatric Medicine; Visit Provider Family Medicine Geriatric Medicine
DX: M79.641 Pain in right hand (principal)
CPT/HCPCS: 73130